=== PATIENT | female | born 1990 | race Caucasian/White ===

== ENCOUNTER 2020-07-21 16:44 | Emergency (ER) | payer OTHER, SELFPAY ==
--- NOTE | 2020-07-21 16:52 | ECG_ITS ---
Measurements Intervals [place] Rate: 123 P: 77 [place]: 141 QRS: 77 QRSD: 90 T: 59 QT: 302 QTc: 432 Interpretive Statements SINUS TACHYCARDIA MINIMAL Q WAVES- INFERIOR LEADS ABNORMAL ECG Electronically Signed On 07-21-2020 21:23:10 CDT by Matt Plaza D.O.
[2020-07-21 17:05] VITALS: BP 129/79; PULSE 122; RESP 22; O2SAT 99
--- NOTE | 2020-07-21 17:15 | ED.ARRPALP ---
HPI - Arrhythmia/Palpitations General Chief Complaint: Arrhythmia/Palpitations Stated Complaint: heart beating fast, dizzy Source: patient Mode of arrival: ambulatory Limitations: no limitations History of Present Illness HPI narrative: Is a 29-year-old female who presents with some increased heart rate started earlier today while at work, denies any other symptoms, no shortness of breath no chest pain no diaphoresis no nausea vomiting. The patient did she say she had some dysuria with no fever or chills currently not on any medication denies any drug use or alcohol abuse. MD complaint: rapid heart beat Onset (ago): hour(s) Duration: constant Severity: mild Context: occurred during rest Associated symptoms: denies other symptoms Related Data Home Medications Medication Instructions Recorded Confirmed No Home Medications 07/21/20 07/21/20 Allergies Allergy/AdvReac Type Severity Reaction Status Date / Time No Known Allergies Allergy Verified 07/21/20 16:58 Review of Systems Review of Systems: All systems reviewed & are unremarkable except as noted in HPI and below PMFSH Past Medical History Medical History Exam Const: General: no acute distress and alert Orientation/consciousness: patient oriented x3 HENMT: Head: normal to inspection Eyes: Conjunctivae: conjunctivae normal Pupils: Equal, round and reactive pupils present EOM: EOMs intact bilaterally Neck: Neck: normal visual inspection, no lymphadenopathy and no meningeal signs Chest: Chest palpation & inspection: normal inspection of the chest Resp: Effort & Inspection: normal respiratory effort Auscultation: clear to auscultation bilaterally Cardio: Rate: regular rate and tachycardic GI: Auscultation: normal bowel sounds : General: Yes no CVA tenderness Back/Spine/Pelvis: Back: no CVA tenderness Skin: General skin exam: normal color Rashes: no rashes Neuro: General: patient oriented x3 and moves all extremities Extrem: General: normal to inspection and no pedal edema Psych: Affect: Anxious affect present Course Course Emergency Course: went into assessed patient and explained what was going to be done, I explained that we were in a start IV fluids and this obtain urinalysis, and blood work. Patient last seen walking out the door, walking to her car and left the premises without further evaluation. MDM - Arrhythmia/Palpitations ECG Data EKG #1: ECG completion date: 07/21/20 ECG completion time: 17:18 EKG Interpretation: tachycardia Critical Care Time Critical Care Time Critical Care Time: No Discharge Plan Discharge Clinical Impression: Sinus tachycardia Patient Disposition: Elopement After Seen by Prov Condition: Stable Prescriptions: No Action No Home Medications RF: 0 Follow-up/Referrals: UNKNOWN,DOCTOR [Primary Care Provider] - Time of Disposition: 17:18
== END 2020-07-21 17:15 | disposition left against medical advice (07) ==
PROVIDERS: Emergency Provider Emergency Medicine
DX: R00.0 Tachycardia, unspecified (principal)
CPT/HCPCS: 93005; 99283

== ENCOUNTER 2020-12-19 23:49 | Emergency (ER) | payer OTHER, SELFPAY ==
[2020-12-20] VITALS: BP 111/60; PULSE 85; RESP 20; TEMP 36.8; O2SAT 97
--- NOTE | 2020-12-20 00:05 | PC.NURSE ---
Pt. being monitored, FHT noted WNL and strong. Pt. being transferred to [facility] and hi risk OB contacted for transport. Noted contractions are approx. anywhere from 1 min to 4 min apart and lasting 30 sec. VSS.
--- NOTE | 2020-12-20 00:10 | PC.NURSE ---
HIV refusal consent obtained via verbal consent. Pt. in active labor c contractions coming more frequently. 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
--- NOTE | 2020-12-20 00:17 | PC.NURSE ---
Report to Lily Obando at [facility].
[2020-12-20] MEDS: LACTATED RINGERS 1,000 ML 999 ML IV CONT ×2 (00:25→01:29)
--- NOTE | 2020-12-20 00:37 | ED.PREGNANCY ---
HPI - General Chief complaint: OB/Uterine Contractions Stated complaint: labor Source: EMS Mode of arrival: EMS Limitations: no limitations History of Present Illness HPI Narrative: this is a 30-year-old female presents to the emergency department via EMS she is 38 weeks and was having contractions throughout the day and over the last 2 to 3 hours or contractions intensified and were becoming closer together and having intense contractions every 1 to 2 minutes. This is her 4th and she is considered high risk secondary to drug abuse and prior history of placenta abruptio. Currently vital signs are stable the patient has no nausea vomiting, dilated approximately 1 to 3 cm with, water did not break although she has some mucus discharge. heart tones assessed and are between 124 and 134, the pain the patient's vital signs are stable her blood pressure is 110/66 with heart rate of 70 and O2 saturations 100%. MD Complaint: contractions Onset (ago): hour(s) Pain Consistency: intermittent Location: pelvis Severity: severe Associated symptoms: denies other symptoms Related Data Home Medications Medication Instructions Recorded Confirmed No Home Medications 07/21/20 07/21/20 Allergies Allergy/AdvReac Type Severity Reaction Status Date / Time No Known Allergies Allergy Verified 07/21/20 16:58 Review of Systems Review of Systems: All systems reviewed & are unremarkable except as noted in HPI and below PMFSH Past Medical History Medical History (Updated 12/20/20 @ 00:43 by Remberto Puente MD) Exam Const: General: no acute distress Orientation/consciousness: patient oriented x3 HENMT: Head: normal to inspection Eyes: Conjunctivae: conjunctivae normal Pupils: Equal, round and reactive pupils present Neck: Neck: normal visual inspection and no lymphadenopathy Chest: Chest palpation & inspection: normal inspection of the chest Resp: Effort & Inspection: normal respiratory effort Auscultation: clear to auscultation bilaterally Cardio: Rate: regular rate Rhythm: regular rhythm GI: Auscultation: normal bowel sounds : General: Yes no CVA tenderness Other: Pelvic exam performed head is at approximately +2 above the the pelvis, with some diet cervix dilated around 2cm with no cephalic presentation, and there is a mucous discharge but the water did not break if this point. Back/Spine/Pelvis: Back: CVA tenderness Skin: General skin exam: normal color Rashes: no rashes Course Course Emergency Course: Patient being assessed and contractions occurring about every 1 to 2 minutes lasting about 30 to 45 seconds. Patient was started on IV and is given lactated Ringer's, talked to high speed operator team at [facility] with Dr. Mancia and at this point they will be sending a EMS to transport to [facility]. EMS transport arrived, cervix fully dilated and transport team to go to [facility] in [place]. Vital Signs Vital signs: Vital Signs Temperature 36.8 C 12/20/20 00:00 Pulse Rate 85 12/20/20 00:00 Respiratory Rate 20 12/20/20 00:00 Blood Pressure 111/60 12/20/20 00:00 Pulse Oximetry 97 12/20/20 00:00 Temperature 36.8 C 12/20/20 00:00 Pulse Rate 85 12/20/20 00:00 Respiratory Rate 20 12/20/20 00:00 Blood Pressure 111/60 12/20/20 00:00 Pulse Oximetry 97 12/20/20 00:00 Critical Care Time Critical Care Time Critical Care Time: No Discharge Plan Discharge Clinical Impression: Qualifiers: Weeks of gestation: 38 weeks Qualified Code(s): Z3A.38 - 38 weeks gestation of Patient Disposition: Acute Care Hospital Condition: Stable Prescriptions: No Action No Home Medications RF: 0 Follow-up/Referrals: UNKNOWN,DOCTOR [Primary Care Provider] - Time of Disposition: 02:00
[2020-12-20 00:41] VITALS: BP 134/67; PULSE 88; RESP 20; O2SAT 98
[2020-12-20 01:10] VITALS: BP 118/50; PULSE 82; RESP 20; O2SAT 98
--- NOTE | 2020-12-20 01:52 | PC.NURSE ---
Transport team here. Pt. being evaluated and setup for transfer FHT's noted and WNL..
--- NOTE | 2020-12-20 02:00 | PC.NURSE ---
Transport team wanting to go to nearest OB Dept., call placed to [facility] OB Dept. and report given. Pt. loaded per Transport team and going to [facility].
== END 2020-12-20 02:00 | disposition short-term general hospital (02) ==
PROVIDERS: Emergency Provider Emergency Medicine
DX: O60.03 Preterm labor without delivery, third trimester (principal); O09.893 Supervision of other high risk pregnancies, third trimester; Z3A.38 38 weeks gestation of pregnancy
CPT/HCPCS: 96360; 96361; 99285; J7120

== ENCOUNTER 2020-12-24 20:34 | Emergency (ER) | payer OTHER, SELFPAY ==
--- NOTE | 2020-12-24 20:47 | ED.FEMALEGU ---
HPI - Female Genitourinary General Chief complaint: Urogenital-Female Stated complaint: Clogged cath Time Seen by Provider: 12/24/20 20:47 Source: patient and RN notes reviewed Mode of arrival: wheelchair Limitations: no limitations History of Present Illness HPI Narrative: patient had recent and lacerated bladder during . She was just sent home and thinks her catheter is obstructed. MD elicited complaint: other ( problem with Serrato catheter) Onset (ago): hour(s) (2-3) Severity: moderate Female Urogenital Radiation: Non-Radiating Quality of pain: cramping Consistency: constant Vaginal discharge: none Vaginal bleeding: none Exacerbating factors: none Relieving factors: none Associated symptoms: denies other symptoms Treatment prior to arrival: none Patient : No Related Data Home Medications Medication Instructions Recorded Confirmed No Home Medications 07/21/20 07/21/20 Allergies Allergy/AdvReac Type Severity Reaction Status Date / Time No Known Allergies Allergy Verified 12/24/20 21:03 Review of Systems Review of Systems: All systems reviewed & are unremarkable except as noted in HPI and below PMFSH Past Medical History Medical History (Updated 12/24/20 @ 21:21 by Chriss Smith MD) No active medical problems Surgical History Surgical History (Updated 12/24/20 @ 21:10 by Chriss Smith MD) H/O section Social History Social History (Updated 12/24/20 @ 21:11 by Chriss Smith MD) Smoking status: Current every day smoker Tobacco type: cigarettes Alcohol intake: current Substance use: current Substance use type: opiates Exam Const: General: healthy appearing, no acute distress and alert Nutritional Appearance: well nourished Orientation/consciousness: patient oriented x3 HENMT: Head: normal to inspection Ears: external ears normal Eyes: Conjunctivae: conjunctivae normal Pupils: Equal, round and reactive pupils present EOM: EOMs intact bilaterally Neck: Neck: normal visual inspection Resp: Effort & Inspection: normal respiratory effort Auscultation: clear to auscultation bilaterally Cardio: Rate: regular rate Rhythm: regular rhythm GI: GI Palp: Yes Soft to palpation, Yes Tenderness to palpation present (GI) (post delivery), No Guarding due to palpation present (GI) and No Rebound tenderness present Auscultation: normal bowel sounds Urinary Catheter: Urinary Catheter: other (Obstructed mucous) Back/Spine/Pelvis: Cervical Spine: cervical ROM normal Thoracic/Lumbar Spine: thoraco-lumbar ROM normal Skin: General skin exam: normal color Rashes: no rashes Neuro: General: patient oriented x3, moves all extremities and no meningeal signs Speech: normal speech Gait exam (Neuro): Normal gait present Extrem: General: normal to inspection and no clubbing, cyanosis or edema Psych: Mental Status: mental status grossly normal Affect: normal affect Attitude: cooperative Thought content: Yes Normal thought content present Judgement: Good judgement present (Psych) Course Course Emergency Course: Serrato catheter initially was attempted to flush. Nurse was unable to flush so the Serrato was exchanged without complication. There was significant amount of mucus but it is draining freely now. Discharge Plan Discharge Clinical Impression: Complication of Serrato catheter Patient Disposition: Home, Self-Care Condition: Stable Instructions: Serrato Catheter Placement and Care (ED) Additional Instructions: Call your OB in a.m. if possible to let them know the problem had with the Serrato catheter. See if they have any other instructions. Prescriptions: No Action No Home Medications RF: 0 Follow-up/Referrals: UNKNOWN,DOCTOR [Primary Care Provider] - Time of Disposition: 21:21
[2020-12-24 20:57] VITALS: BP 124/80; PULSE 74; RESP 20; TEMP 36.6; O2SAT 100
--- NOTE | 2020-12-24 21:04 | PC.NURSE ---
Verbal order from Dr Smith to pull indwelling argueta catheter that pt arrived to the ED with and replace with a new one.
[2020-12-24 21:38] VITALS: BP 128/74; PULSE 80; RESP 18; O2SAT 99
== END 2020-12-24 21:53 | disposition home or self-care (01) ==
PROVIDERS: Emergency Provider Emergency Medicine
DX: T83.098A Other mechanical complication of other urinary catheter, initial encounter (principal)
CPT/HCPCS: 99282; 99283

== ENCOUNTER 2020-12-25 16:05 | Emergency (ER) | payer OTHER, SELFPAY ==
[2020-12-25 16:46] VITALS: BP 126/69; PULSE 89; RESP 16; TEMP 36.9; O2SAT 98
--- NOTE | 2020-12-25 16:53 | ED.GENADULT ---
HPI - General Adult General Chief complaint: Extremity Problem,Nontraumatic Stated complaint: Body swollen Source: patient and family Mode of arrival: wheelchair Limitations: no limitations History of Present Illness HPI narrative: this is a 30-year-old female presents to the emergency department with some edema mainly in her lower extremities, with no shortness of breath no chest pain no fever chills no abdominal pain. The patient recently had a for a breech delivery at [facility] approximately 5 days ago. During the there was a laceration of the urinary bladder and the patient was subsequently transferred to [facility] in [place] for bladder surgery and repair. Patient currently is doing well subsequent to that, she does have an indwelling Serrato that is patent, was here yesterday for a clogged Serrato that was replaced yesterday during a visit in the emergency department. Currently the patient is comfortable doing well and has concerns about lower extremity edema. Onset (ago): day(s) Location: lower extremity Related Data Home Medications Medication Instructions Recorded Confirmed No Home Medications 07/21/20 12/24/20 Allergies Allergy/AdvReac Type Severity Reaction Status Date / Time No Known Allergies Allergy Verified 12/24/20 21:03 Review of Systems Review of Systems: All systems reviewed & are unremarkable except as noted in HPI and below PMFSH Past Medical History Medical History No active medical problems Surgical History Surgical History H/O section Social History Social History Smoking status: Current every day smoker Tobacco type: cigarettes Alcohol intake: current Substance use: current Substance use type: opiates Exam Const: General: no acute distress Orientation/consciousness: patient oriented x3 HENMT: Head: normal to inspection Eyes: Conjunctivae: conjunctivae normal Pupils: Equal, round and reactive pupils present EOM: EOMs intact bilaterally Direct Ophthalmoscopy: no photophobia Neck: Neck: normal visual inspection, no lymphadenopathy and no meningeal signs Chest: Chest palpation & inspection: normal inspection of the chest Resp: Effort & Inspection: normal respiratory effort Auscultation: clear to auscultation bilaterally Cardio: Rate: regular rate Rhythm: regular rhythm GI: GI Palp: Yes Soft to palpation Other: Surgical site from delivery as tender but there is no redness or drainage. : General: Yes no CVA tenderness Other: Serrato currently in place is patent and draining well Back/Spine/Pelvis: Back: no CVA tenderness Skin: General skin exam: normal color Rashes: no rashes Neuro: General: patient oriented x3 and moves all extremities Extrem: General: normal to inspection and edema ( trace edema noted in her lower extremities ) Psych: Mental Status: mental status grossly normal Course Course Emergency Course: evaluation of patient reassured patient that after receiving numerous IV fluids during her hospital stay there was going to be some edema, currently there is no shortness of breath and advised the patient to reduce her salt intake and to elevate her lower legs while she is really climbing and resting. And keep her follow-up with her OB. Critical Care Time Critical Care Time Critical Care Time: No Discharge Plan Discharge Clinical Impression: Lower extremity edema Patient Disposition: Home, Self-Care Condition: Stable Instructions: Antibiotic Form, Leg Edema (ED) Additional Instructions: keep legs elevated while at rest and reduce salt intake, and follow-up with to OB/ fish dressing machine feeder as soon as possible for further evaluation and treatment Prescriptions: No Action No Home Medicati
== END 2020-12-25 17:08 | disposition home or self-care (01) ==
PROVIDERS: Emergency Provider Emergency Medicine
DX: R60.0 Localized edema (principal)
CPT/HCPCS: 99281; 99282

== ENCOUNTER 2021-11-09 17:30 | Emergency (ER) | payer OTHER, SELFPAY ==
[2021-11-09 17:38] VITALS: BP 121/66; PULSE 104; RESP 16; TEMP 36.4; O2SAT 96
--- NOTE | 2021-11-09 17:47 | ED.DENTAL ---
HPI - Dental/Oral General Chief complaint: Dental/Oral Stated complaint: swelling in face Source: patient Mode of arrival: ambulatory Limitations: no limitations History of Present Illness HPI Narrative: this is a 30-year-old female presents with some cracked tooth premolar on the left lower jaw with surrounding gum inflammation and left lower jaw swelling with no tender glands no fever chills no shortness of breath. Complaint: tooth pain Teeth map: 1. cracked premolar with surrounding gum inflammation and jaw inflammation Onset (ago): day(s) Duration: constant Severity: moderate Severity scale (1-10): 6 Relieving factors: nothing Exacerbating factors: chewing and cold Related Data Allergies Allergy/AdvReac Type Severity Reaction Status Date / Time No Known Allergies Allergy Verified 11/09/21 17:44 Review of Systems Review of Systems: All systems reviewed & are unremarkable except as noted in HPI and below PMFSH Past Medical History Medical History No active medical problems Surgical History Surgical History H/O section Social History Social History Smoking status: Current every day smoker Tobacco type: cigarettes Alcohol intake: current Substance use: current Substance use type: opiates Exam Const: General: no acute distress and alert Orientation/consciousness: patient oriented x3 HENMT: Head: normal to inspection Eyes: Conjunctivae: conjunctivae normal Pupils: Equal, round and reactive pupils present Neck: Neck: normal visual inspection, no lymphadenopathy and no meningeal signs Chest: Chest palpation & inspection: normal inspection of the chest Resp: Effort & Inspection: normal respiratory effort Auscultation: clear to auscultation bilaterally Cardio: Rate: regular rate Rhythm: regular rhythm GI: Auscultation: normal bowel sounds : General: Yes no CVA tenderness Back/Spine/Pelvis: Back: no CVA tenderness Skin: General skin exam: normal color Rashes: no rashes Neuro: General: patient oriented x3 and moves all extremities Extrem: General: normal to inspection and no pedal edema Psych: Mental Status: mental status grossly normal Course Course Emergency Course: Patient received IM Toradol 60mg and currently not having any fevers did try some ibuprofen at home, advised to follow-up with her dentist and will send antibiotics to her pharmacy. Critical Care Time Critical Care Time Critical Care Time: No Discharge Plan Discharge Clinical Impression: Toothache, Dental abscess Patient Disposition: Home, Self-Care Condition: Stable Instructions: Antibiotic Form, Dental Abscess (ED), Toothache (ED) Additional Instructions: Take medicine as prescribe and follow-up with dentist. Prescriptions: New amoxicillin 500 mg capsule 500 mg PO TID Qty: 30 RF: 0 tramadol [Ultram] 50 mg tablet 50 mg PO Q6H PRN (Reason: pain) Qty: 14 RF: 0 Follow-up/Referrals: UNKNOWN,DOCTOR [Primary Care Provider] - Stand Alone Forms: Work/School Release IP Time of Disposition: 17:51
[2021-11-09] MEDS: KETOROLAC (*BKC) 60 MG/2 ML VIAL IM (17:58)
[2021-11-09 18:05] VITALS: BP 122/70; PULSE 86; RESP 16; TEMP 36.4; O2SAT 96
== END 2021-11-09 18:15 | disposition home or self-care (01) ==
PROVIDERS: Emergency Provider Emergency Medicine
DX: K08.89 Other specified disorders of teeth and supporting structures (principal); K04.7 Periapical abscess without sinus
CPT/HCPCS: 96372; 99283; J1885

== ENCOUNTER 2022-09-04 01:01 | Emergency (ER) | payer OTHER, SELFPAY ==
--- NOTE | ~2022-09-04 | CT_ITS ---
EXAMINATION: CT facial & cervical spine wo DATE: 09/04/2022 02:43 INDICATION: Head injury. TECHNIQUE: Computed tomography (CT) of the maxillofacial region and cervical spine was performed with out intravenous contrast. Automated exposure control and iterative reconstruction technique were empl oyed. The dose-length product was 357.91 mGy-cm. COMPARISON: None FINDINGS: MAXILLOFACIAL CT: There is rightward deviation of the nasal septum. No fracture. There is mucosal thickening in the par anasal sinuses, worst in left maxillary sinus. There are multiple broken teeth with periapical lucenc ies. There are carious lesions of multiple teeth. There is left periorbital soft tissue swelling. The orbits are normal. CERVICAL SPINE CT: There is 5 degrees dextrocurvature of cervical spine. There is kyphosis of cervical spine. Vertebral body heights are normal. There is mildly decreased disc height at C4-C5, C5-C6, and C6-C7. The follow ing disc levels are specifically discussed: C2-C3: There is mild right uncovertebral joint osteoarthritis. There is no facet joint osteoarthritis . There is no neural foraminal stenosis. There is no central canal stenosis. C3-C4: There is mild right uncovertebral joint osteoarthritis. There is no facet joint osteoarthritis . There is mild right neural foraminal stenosis. There is no central canal stenosis. C4-C5: There is mild bilateral uncovertebral joint osteoarthritis. There is no facet joint osteoarthr itis. There is mild right neural foraminal stenosis. There is mild central canal stenosis. C5-C6: There is no uncovertebral joint osteoarthritis. There is no facet joint osteoarthritis. There is no neural foraminal stenosis. There is mild central canal stenosis. C6-C7: There is no uncovertebral joint osteoarthritis. There is mild right facet joint osteoarthritis . There is no neural foraminal stenosis. There is no central canal stenosis. C7-T1: There is no uncovertebral joint osteoarthritis. There is moderate bilateral facet joint osteoa rthritis. There is no neural foraminal stenosis. There is no central canal stenosis. IMPRESSION: 1. No fracture. 2. Extensive dental disease. 3. Mild cervical spondylosis. Reviewed, dictated and finalized at location A.
--- NOTE | ~2022-09-04 | XR_ITS ---
EXAMINATION: XR pelvis 1-2V DATE: 09/04/2022 02:45 INDICATION: Pelvis injury. TECHNIQUE: An anteroposterior view of the pelvis was obtained. COMPARISON: None. FINDINGS: Bone alignment is normal. No fracture. The hip joint spaces are normal. IMPRESSION: 1. No fracture. Reviewed, dictated and finalized at location A. IMPRESSION: 1. No fracture.
--- NOTE | ~2022-09-04 | CT_ITS ---
EXAMINATION: CT brain wo con DATE: 09/04/2022 02:42 INDICATION: Head injury. TECHNIQUE: Computed tomography (CT) of the head was performed without intravenous contrast. The mA wa s adjusted according to patient size. Iterative reconstruction technique was employed. The dose-lengt h product was 605.33 mGy-cm. COMPARISON: None FINDINGS: There is no intracranial hemorrhage, acute infarction, or abnormal intracranial mass lesion . The ventricles are normal in size. The orbits are normal. There is mucosal thickening in left maxil cindy sinus. There is a small left mastoid effusion. IMPRESSION: 1. Normal brain. Reviewed, dictated and finalized at location A. IMPRESSION: 1. Normal brain.
--- NOTE | ~2022-09-04 | XR_ITS ---
EXAMINATION: XR elbow LT min 3V DATE: 09/04/2022 02:44 INDICATION: Left elbow injury and pain. TECHNIQUE: 4 views of left elbow were obtained. COMPARISON: None. FINDINGS: Bone alignment is normal. No fracture. Joint spaces are normal. No elbow joint effusion. IMPRESSION: 1. No fracture. Reviewed, dictated and finalized at location A. IMPRESSION: 1. No fracture.
--- NOTE | ~2022-09-04 | XR_ITS ---
EXAMINATION: XR forearm LT 2V DATE: 09/04/2022 02:44 INDICATION: Left forearm injury. TECHNIQUE: 2 views of left forearm were obtained. COMPARISON: None. FINDINGS: Bone alignment is normal. No fracture. Joint spaces are normal. No elbow joint effusion. IMPRESSION: 1. No fracture. Reviewed, dictated and finalized at location A. IMPRESSION: 1. No fracture.
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
[2022-09-04 01:24] VITALS: BP 131/79; PULSE 86; RESP 17; TEMP 36.2; O2SAT 95
[2022-09-04 01:40] LABS: Basophils Absolute Auto 0.03 K/mm3 (0.00-0.10); Basophils Percent Auto 0.3 % (0.0-1.0); Eosinophils Absolute Auto 0.24 K/mm3 (0.02-0.50); Eosinophils Percent Auto 2.4 % (1.0-6.0); Hematocrit 39.5 % (35.0-49.0); Hemoglobin 13.2 g/dL (12.0-15.0); Immature Granulocyte Absolute 0.04 K/mm3 (0.00-0.00); Immature Granulocyte Percent A 0.4 % (0.0-0.0); Lymphocytes Percent Auto 23.1 % (18.0-42.0); Mean Corpuscular HGB Conc 33.4 g/dL (32.0-36.0); Mean Corpuscular Hemoglobin 30.6 pg (27.0-31.0); Mean Corpuscular Volume 91.4 fL (78.0-102.0); Monocytes Absolute Auto 0.66 K/mm3 (0.10-0.90); Monocytes Percent Auto 6.6 % (2.0-11.0); Neutrophils Absolute Auto 6.7 K/mm3 (1.7-7.2); Neutrophils Percent Auto 67.2 % (50.0-70.0); Platelet Count Result 321 K/mm3 (150-420); Red Blood Count 4.32 M/mm3 (4.20-5.40); Red Cell Distribution Width 12.3 % (11.6-14.4)
[2022-09-04 01:41] LABS: Appearance Urine Clear (Clear); Bilirubin Urine Negative (Negative); Blood Urine 2+ (Negative); Glucose Urine UA Negative (Negative); Ketones Urine Negative (Negative); Leukocyte Esterase Ur Negative (Negative); Nitrate Urine Positive (Negative); Protein Urine Negative (Negative); Urobilinogen Urine 0.2 mg/dL (0.2-1.0)
[2022-09-04 01:43] LABS: Pregnancy On Board Control Positive; Urine Pregnancy Test Negative
[2022-09-04 01:47] LABS: Add Urine Microscopic? YES; Bacteria Urine 4+ /hpf; Color Urine Light Yellow (Yellow); Squamous Epithelial Cell Urine Moderate /hpf (Few); WBC Urine 0-3 /hpf (0-3)
[2022-09-04] MEDS: HYDROmorphone HCL INJ (*CRX) 2 MG/ML VIAL 0.5 MG IM (01:47)
[2022-09-04] MEDS: ONDANSETRON HCL ODT 4 MG TABLET PO (01:48)
[2022-09-04 01:56] LABS: Alanine Aminotransferase 25 U/L (14-59); Albumin Level 3.5 g/dL (3.4-5.0); Alkaline Phosphatase 81 U/L (46-116); Anion Gap 7 mmol/L (8-16); Aspartate Amino Transferase 27 U/L (15-37); Bilirubin,Total 0.3 mg/dL (0.00-1.00); Blood Urea Nitrogen 9 mg/dL (7-18); Calcium 8.6 mg/dL (8.5-10.1); Carbon Dioxide 29 mmol/L (21-32); Chloride 104 mmol/L (98-108); Estimated CRCL calculation 83 ml/min; Estimated Glomerular Filt Rate > 60; Glucose 93 mg/dL (70-99); Lipase 73 U/L (73-393); Osmolality Calculated 288 mOsm/kg (285-295); Potassium 4.2 mmol/L (3.5-5.1); Sodium 140 mmol/L (136-145); Troponin I 30.9 ng/L (0.00-60.4)
--- NOTE | 2022-09-04 02:37 | PC.NURSE ---
Radiology informed this staff member that the patient refused the ordered chest X-ray.pt informed this staff member that she did not feel like she needed a chest x-ray given that she does not have any pain in her chest.
[2022-09-04 02:40] VITALS: BP 123/70; PULSE 77; RESP 16; O2SAT 95
[2022-09-04] MEDS: LIDOCAINE HCL 1% LOCAL INJ 10 ML VIAL (04:00)
[2022-09-04 04:28] VITALS: BP 129/82; PULSE 77; RESP 16; TEMP 36.2; O2SAT 99
== END 2022-09-04 04:29 | disposition home or self-care (01) ==
PROVIDERS: Emergency Provider Internal Medicine Critical Care Medicine
DX: S01.112A Laceration without foreign body of left eyelid and periocular area, initial encounter (principal); S60.512A Abrasion of left hand, initial encounter; S80.812A Abrasion, left lower leg, initial encounter; W05.1XXA Fall from non-moving nonmotorized scooter, initial encounter; F17.210 Nicotine dependence, cigarettes, uncomplicated
CPT/HCPCS: 12011; 36415; 70450; 70486; 72125; 72170; 73080; 73090; 80053; 81001; 81025; 83690; 84484; 85025; 96372; 99284; A9270; J1170

== ENCOUNTER 2024-06-17 18:36 | Emergency (ER) | payer SELFPAY ==
--- NOTE | ~2024-06-17 | XR_ITS ---
EXAM: XR ankle LT min 3V, XR foot LT min 3V DATE: 06/17/2024 19:17 HISTORY: accidental fall . COMPARISON: None available. FINDINGS: Normal mineralization. No fracture or dislocation. No lytic or blastic lesion. Joint space s are maintained. Minimal Achilles enthesopathy. No erosion or periosteal change. Soft tissues within normal limits. IMPRESSION: No acute osseous finding the left ankle or foot. Reviewed, dictated and finalized at location K. IMPRESSION: No acute osseous finding the left ankle or foot.
[2024-06-17 18:37] VITALS: BP 144/81; PULSE 96; RESP 20; TEMP 37; O2SAT 98
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
[2024-06-17] MEDS: KETOROLAC 30 MG/ML VIAL (*BKC) IM (19:14)
[2024-06-17 19:56] VITALS: BP 132/78; PULSE 78; RESP 20; TEMP 36.9; O2SAT 98
== END 2024-06-17 19:56 | disposition home or self-care (01) ==
PROVIDERS: Emergency Provider Internal Medicine Critical Care Medicine
DX: S93.602A Unspecified sprain of left foot, initial encounter (principal); K02.9 Dental caries, unspecified; F17.210 Nicotine dependence, cigarettes, uncomplicated; V18.0XXA Pedal cycle driver injured in noncollision transport accident in nontraffic accident, initial encounter
CPT/HCPCS: 73610; 73630; 96372; 99283; J1885

== ENCOUNTER 2025-03-14 09:20 | Emergency (ER) | payer OTHER, SELFPAY ==
[2025-03-14] VITALS (25 sets, daily range): BP systolic 125–180; BP diastolic 71–96; PULSE 96–146; RESP 10–22; TEMP 36.7–36.8; O2SAT 92–100
--- NOTE | ~2025-03-14 | CT_ITS ---
EXAMINATION: CTA chest PE protocol DATE: 03/14/2025 11:34 CDT INDICATION: Left-sided chest pain TECHNIQUE: Computed tomographic angiography (CTA) of the chest was performed with 100 mL Omnipaque-35 0 intravenous contrast. The dose-length product was 224.24 mGy-cm. Maximum intensity projection 3D-re constructions of the aorta and other arteries were constructed by the technologist on a separate work station. COMPARISON: None. FINDINGS: Study is technically limited due to bolus contrast timing. No large central pulmonary embol ism. Heart size normal. No significant pleural or pericardial effusion. No thoracic lymphadenopathy. No endobronchial lesions. No pneumothorax. No focal airspace consolidation. No pneumothorax. No acute osseous abnormality. Mild thoracic spondylosis. IMPRESSION: 1. No acute cardiopulmonary disease. Evaluation for pulmonary embolism limited due to bolus contrast timing. No large central pulmonary embolism. Reviewed, dictated and finalized at location A.
--- NOTE | ~2025-03-14 | XR_ITS ---
EXAMINATION: XR chest 1V portable 03/14/2025 09:41 INDICATION: Left-sided chest pain PROCEDURE: AP portable chest COMPARISON: No prior studies for comparison. FINDINGS: The lungs are clear. The cardiomediastinal silhouette is within normal limits. There are no pleural effusions. There is no pneumothorax suspected. IMPRESSION: 1: NO ACUTE CARDIOPULMONARY DISEASE. Reviewed, dictated and finalized at location A.
--- NOTE | 2025-03-14 09:22 | ECG_ITS ---
Test Date: 2025-03-14 09:27:38 Measurements Intervals [place] Rate: 139 P: 79 MS: 144 QRS: 73 QRSD: 88 T: 73 QT: 316 QTc: 482 Interpretive Statements SINUS TACHYCARDIA MINIMAL Q WAVES- INFERIOR LEADS ABNORMAL ECG No previous ECG available for comparison Electronically Signed On 03-14-2025 11:50:34 CDT by Matt Plaza D.O.
--- OUTSIDE RECORDS SUMMARY | 2025-03-14 09:22 | XMS_ITS | Clinical Summary ---
Author Organization [facility] Address [address] [place] [id number] Care Team Providers Care [employer] Clerk Name Role Phone None, Provider MD Primary Care Provider Unavaila ble Allergies No known active allergies Medications albuterol sulfate HFA 108 (90 Base) MCG/ACT inhaler Inhale 2 puffs into the lungs every 6 (six) hours as needed for Wheezing. Active HYDROmorphone 2 MG tabletIndications :Chronic Pain,acute post op pain - not prescribed for chronic pain Take 1 tablet (2 mg total) by mouth every 4 (four) hours as needed. Indications: Chronic Pain, acute post op pain - not prescribed for chronic pain 10 tablet 1 Active naloxone 4 MG/0.1ML nasal sprayIndications: Other postoperative complication involving genitourinary system 1 spray by Nasal route as needed for Opioid reversal. 1 each 1 Active senna-docusate 8.6-50 MG tabletIndications :Other postoperative complication involving genitourinary system Take 1 tablet by mouth 2 (two) times daily. 60 tablet 1 Active Active Problems Problem Noted Date Diagnosed Date Breech presentation ([facility]) 12/20/2020 delivery delivered ([facility]) 12/20/2020 Post-operative complication 12/20/2020 Family History Relation Status Comments Father Social History Tobacco Use Types Packs/Day Years Used Date Smoking Tobacco: Every Day Cigarettes Smokeless Tobacco: Never Tobacco Cessation:Ready to Q uit: No; Counseling Given: Yes Alcohol Use Standard Drinks/Week Comments Not Currently 0 (1 standard drink = 0.6 oz pur e alcohol) Depression Answer Date Recor ded Last EPDS Total Score 2 12/24/2020 Last EPDS Self Harm Result Sometimes 12/24 Comments No Sex and Gender Information Value Date Recorded Sex Assigned at Not on file Legal Sex Female 2:15 AM [facility] Gender Identity Not on file Sexual Orientation Not on file Last Filed Vital Signs Vital Sign Reading Time Taken Comments Blood Pressure 138/67 12/24/2020 12:26 PM [facility] Pulse 92 12/24/2020 12:26 PM [facility] Temperature 36.2 C (97.2 F) 12/24/2020 8:28 AM [facility] Respiratory Rate 16 12/24/2020 6:10 AM [facility] Oxygen Saturation 93% 12/22/2020 9:17 AM [facility] Inhaled Oxygen Concentration - - Weight 54.4 kg (120 lb) 12/20/2020 12:00 PM [facility] Height 160 cm (5' 3 ) 12/20/2020 12:00 PM [facility] Body Mass Index 21.26 12/20/2020 12:00 PM [facility] Plan of Treatment Health Maintenance Due Date Last Done Comments Annual Physical 1991 Pneumococcal Vaccine: Pediatrics (0 to 5 Years) and At-Risk Patients (6 to 49 Years) (1 of 2 - PCV) 2007 Cervical Cancer Screening Pap Smear (Age 30 to 64) Every 3 Years 11/24/2023 11/24/2020, 11/24/2020 COVID-19 Vaccine ( season) 2024 Cervical Cancer Screening Pap with HPV Testing (Age 30 to 64) Every 5 Years 11/24/2025 11/24/2020, 11/24/2020 Cervical Cancer Screening with HPV 11/24/2025 DTaP, Tdap and Td Vaccines (8 - Td or Tdap) 11/24/2030 11/24/2020, 08/17/2019, 07/05/1994, Additional history exists Hepatitis B Vaccines Completed 10/01/2019, 06/10/2019, 02/19/2019 Hepatitis C Completed 12/20/2020, 11/26, 11/24/2020, Additional history exists HPV Vaccines Aged Out No longer eligi ble based on patient's age to complete this topic Meningococcal B Vaccine Aged Out No l onger eligible based on patient's age to complete this topic Meningococcal Vaccine Aged Out No yady rosa eligible based on patient's age to complete this topic RSV Immunizations Under 20 Months Aged Out No longer eligible based on patient's age to complete this topic Procedures Procedure Name Priority Date/Time Associated Diagnosis Comments HEPATITIS C ANTIBODY Routine 12/20/2020 9:11 AM [facility] C[facility] from Last 3 Months or Most Recently Relevant to Health Maintenance Results * HEPATITIS C ANTIBODY (12/20/2020 9:11 AM [facility] C[facility]) HEPATITIS C AB NON-REACTI VE NON-REACT BEATRICE 12/20/2020 6:38 PM [facility] Comment: ANTIBODIES TO HCV NOT DETECTED. DOES NOT EXCLUDE THE POSSIBILITY OF EXPOSURE TO HCV. 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
--- OUTSIDE RECORDS SUMMARY | 2025-03-14 09:22 | XMS_ITS | Clinical Summary ---
Author Organization [facility] Address [address] [place] [address] Care Team Providers Care Boxing Inspector Name Role Phone Karina Dill MD Primary Care Provider Source Comments [facility],non-owned Affiliates and Associated Physician Practices is amultiple site organization consisting of ambulatory clinics and hospital sitesin [place], [place], [place] and [place]. This disclosure is being madepursuant to the Care Everywhere program and may not contain all information available regarding this patient. Last updated 18.[facility] [employer] Allergies No known active allergies Medications * This document contains information received from the source organization and may not represent a complete record from that organization. * Be aware that medications may not be up to date on this document. Alwaysverify current medications with the patient. w/o A Vit-Fe Fum-FA (-U) 106.5-1 MG CAPSIndications : Take 1 capsule by mouth once daily Reasons: 30 capsule 3 9 Active albuterol HFA (PROVENTIL;VENT VICENTA;PROAIR) 108 (90 Base) MCG/ACT inhalerIndicati ons:Asthma Inhale 2 puffs by mouth every 4 hours as needed for Shortness of Breath, Wheezing or Cough Reasons: Asthma 1 g 3 9 Active buprenorphine-n aloxone (SUBOXONE) 2-0.5 MG stripIndication s:Opioid [place] 1: 12/02 strip, titrate as directed for 8 days. Reasons: Opioid Dependence 18 strip 1 Active naloxone HCl (NARCAN) 4 MG/0.1ML nasal spray [place] 1 spray into the nose as needed 2 device 1 Active plus iron (NATATAB) 29-1 MG tabletIndicatio ns: Take 1 tablet by mouth once daily May substitute for any vitamin that is covered by her insurance plan. Reasons: 30 tablet 11 1 Active docusate sodium (COLACE) 100 MG capsule Take 1 capsule by mouth 2 times daily as needed for Constipation 60 capsule 5 1 Active Active Problems Problem Noted Date Diagnosed Date Trichomonas vaginitis 11/28/2020 Overview (11/28/2020): Servando called into pharmacy 11/28/20 labor in third trimester without deliver y 11/24/2020 affected by growth restriction 1 Overview (11/24/2020): 11/24/20 ultrasound, EFW 2000g (7%), BPP 8/8, FERNANDO 22.3, breech, fundal placenta, normal UA PI, decreased MCA PI Plan: Repeat ultrasound in 2 weeks for growth, twice weekly NST, weekly BPP/dopplers Assessment & Plan (11/24/2020 3:43 PM SPECIFICATIONS CHECKER): 11/24/20 ultrasound, EFW 2000g (7%), BPP 8/8, FERNANDO 22.3, breech, fundal placenta, normal UA PI, decrease MCA PI Plan: Repeat ultrasound in 2 weeks for growth, twice weekly NST, weekly BPP/dopplers History of 10/01/2019 Rh negative state in antepartum period 9 Assessment & Plan (11/24/2020 3:27 PM SPECIFICATIONS CHECKER): Rhogam given 11/24/20 Abnormal Papanicolaou smear of cervix with positive human papilloma virus (HPV) test 03/02/2019 Overview (03/02/2019): 01/2019: NILM repeat co-testing 1 year Assessment & Plan (11/24/2020 3:26 PM SPECIFICATIONS CHECKER): Repeat performed 11/24/20 History of pre-eclampsia in prior , currently 02/19/2019 Overview (06/11/2019): G1- Hydrochlorothiazide and Lisinopril following delivery Protein/creatinine ration: 0.07, 06/10 Assessment & Plan (11/24/2020 3:17 PM SPECIFICATIONS CHECKER): Baseline labs today. ASA not started given bleeding as well as advanced gestational age making risks likely outweigh benefits. BP normal. Mild intermittent asthma without complication Assessment & Plan (11/24/2020 3:17 PM SPECIFICATIONS CHECKER): Albuterol use 1-2/month only. Anxiety 02/19/2019 Assessment & Plan (11/24/2020 3:18 PM SPECIFICATIONS CHECKER): Not on medications and states does not need currently. Bipolar 1 disorder 02/19/2019 Overview (02/19/2019): Diagnosed in 2010 Assessment & Plan (11/24/2020 3:18 PM SPECIFICATIONS CHECKER): Not on medications and states does not need currently. WISH patient 02/19/2019 Overview (11/29/2020): Datin week ultrasound 06/2020 (under media) PNL: Aneg/Imm/-/- HIV NR Pap: NILM, HPV negative, 10/2020 GC/CT: neg/neg Trich: positive, 11/24 Urine cx: negative UDS: positive amphetamines, fentanyl, THC 11/24/20 H/H/P: 10.9/31.4/328 HgbE: Genetics: Anatomy US: Flu shot: 11/24/20 LFT's: WNL, 10/2020 HCV: negative 11/24/20 TSH: GCT: 93 Tdap: 11/24/20 GBS: BCM: desires BTL, papers signed 11/24/20 Assessment & Plan (11/24/2020 3:20 PM SPECIFICATIONS CHECKER): Routine labs today, GCT, immunizations, ultrasound, NST. History of delivery 02/19/2019 Overview (06/10/2019): G2- Documented LTCS @ [facility]; placental abruption at 34 weeks, records in media Assessment & Plan (11/24/2020 3:21 PM SPECIFICATIONS CHECKER): History of 1 , prefers another if possible. History of placenta abruption 02/19/2019 Overview (02/23/2019): 2012 C/Section-documented LTCS @34wks for placental abruption, tobacco use. Record scan in to [employer]. Assessment & Plan (11/24/2020 3:21 PM SPECIFICATIONS CHECKER): Placenta appears normal today. She is having very light spotting, felt to be more likely due to labor or cervical friability rather than abruption. Being admitted. Recurrent loss, antepartum 02/19/2019 Overview (03/02/2019): 3 first trimester SAB, also had loss in 2018 she thought was 16 weeks, but 9 wk missed ab seen on sonogram APLAS work-up negative, 01/2019 Opioid use disorder, severe, on maintenance ther apy 02/19/2019 Overview (02/19/2019): Fentanyl Family history of cardiomyopathy, dilated 2018 Assessment & Plan (11/24/2020 3:25 PM SPECIFICATIONS CHECKER): Recommended during last to get maternal ECHO which she never completed. Will attempt to set up at next visit. Methamphetamine use disorder, severe, in early r emission 02/19/2019 Assessment & Plan (11/24/2020 3:26 PM SPECIFICATIONS CHECKER): Encouraged to discontinue use and we discussed the risks during , including the risk of abruption which she has experienced during a previous . Resolved Problems Problem Noted Date Diagnosed Date Resolved Date care and examination 10/01/2019 11/24/2020 Vaginal bleeding 09/18/2019 10/01/2019 Abnormal [place] glucose challenge test, antepartum 08/17/2019 11/24/2020 Overview (08/17/2019): GCT: 142, needs GTT Encounter for anatomic survey 06/10/2019 08/17/2019 Drug use complicating 06/10/2019 08/17/2019 Poor growth, affecting management of mother, antepartum condition or complication 06/10/2019 10/01/2019 Urinary tract infection affe cting care of mother in first trimester, antepartum 02/23/2019 Overview (08/19/2019): Enterococcus UTI. Prescribed Macrobid 100mg BID x 7 days. MICHAEL negative Depression 02/19/2019 02/19/2019 Immunizations Immunization Administration Dates Next Due HEP A VACCINE, ADULT 10/01/2019,02/19/2019 HEP B VACCINE, ADULT 3 DOSE 10/01/2019, 9,02/19/2019 INFLUENZA VACCINE, QUADR. (F LUZONE; FLULAVAL; FLUARIX; AFLURIA QUADRIVALENT; 6MO+), 0.5 ML (IIV4) 11/24/2020,10/01/2019,02/19/2019 Rho D Immune Globulin 11/24/2020, 019(Deferred: Patient Condition),08/17/2019,08/11/2018 TDAP (7yrs+) 11/24/2020,08/17/2019 Family History Medical History Relation Name Comments Cardiomyopathy Father Hypertension Mother Relation Name Status Comments Father Mother Social History Tobacco Use Types Packs/Day Years Used Date Smoking Tobacco: Every Day Cigarettes 0.5 19 Smokeless Tobacco: Never Alcohol Use Standard Drinks/Week Comments No 0 (1 standard drink = 0.6 oz pur e alcohol) Comments No Sex and Gender Information Value Date Recorded Sex Assigned at Not on file Legal Sex Female 9:28 PM SPECIFICATIONS CHECKER Gender Identity Not on file Sexual Orientation Not on file Last Filed Vital Signs Vital Sign Reading Time Taken Comments Blood Pressure 120/61 11/24/2020 3:10 PM SPECIFICATIONS CHECKER Pulse 87 11/24/2020 11:55 AM SPECIFICATIONS CHECKER Temperature 36.7 C (98 F) 11/24/2020 3:10 PM SPECIFICATIONS CHECKER Respiratory Rate 18 11/24/2020 3:10 PM SPECIFICATIONS CHECKER Oxygen Saturation 98% 11/24/2020 3:10 PM SPECIFICATIONS CHECKER Inhaled Oxygen Concentration - - Weight 71.5 kg (157 lb 9.6 oz) 11/24/2020 4:15 P M SPECIFICATIONS CHECKER Height 160 cm (5' 3 ) 11/24/2020 4:15 PM SPECIFICATIONS CHECKER Body Mass Index 27.92 11/24/2020 4:15 PM SPECIFICATIONS CHECKER Plan of Treatment Health Maintenance Due Date Last Done Comments COVID-19 VACCINE (2023- season) 2024 INFLUENZA VACCINE (Season Ended) 2025 11/24/2020, 10/01/2019, 02/19/2019, Additional history exists PAP with HPV 11/24/2025 11/24/2020, 02/19/2019 DTAP/TDAP/TD VACCINES (3 - Td or Tdap) 11/24/2030 11/24/2020, 08/17/2019 ZOSTER VACCINE (1 of 2) 2038 HEPATITIS B VACCINE Completed 10/01/2019, 06/10/2019, 02/19/2019 HEPATITIS C SCREENING Completed 12/20/2020 , 11/24/2020, 09/18/2019, Additional history exists HIV SCREENING Completed 12/20/2020, 10/27, 09/18/2019, Additional history exists HIB VACCINE Aged Out No longer eligi ble based on patient's age to complete this topic HPV VACCINE Aged Out No longer eligi ble based on patient's age to complete this topic MENINGOCOCCAL (Group B) VACCINE SHARED DECISION-MAKING Aged Out No longer eligible based on patient's age to complete this topic MENINGOCOCCAL GROUPS A/C/Y/W VACCINE Aged Out No longer eligible based on patient's age to complete this topic PNEUMOCOCCAL VACCINE Aged Out No long er eligible based on patient's age to complete this topic Procedures Procedure Name Priority Date/Time Associated Diagnosis Comments PAP IG LB+HPV APTIMA Routine 11/24/2020 2:08 PM SPECIFICATIONS CHECKER WISH patient HEPATITIS C ANTIBODY Routine 11/24/2020 1:32 PM SPECIFICATIONS CHECKER WISH patient HIV-1 HIV-2 ANTIBODY + HIV P24 AG PANEL Routine 11/24/2020 1:32 PM SPECIFICATIONS CHECKER WISH patient from Last 3 Months or Most Recently Relevant to Health Maintenance Results * PAP IG LB+HPV APTIMA (11/24/2020 2:08 PM SPECIFICATIONS CHECKER) Diagnosis Comment 11/29/2020 4:09 PM SPECIFICATIONS CHECKER [facility] Comment:NEGATIVE FOR INTRAEP ITHELIAL LESION OR MALIGNANCY. Specimen Adequacy Comment 021 4:09 PM SPECIFICATIONS CHECKER [facility] Comment:Satisfactory for rene luation. No endocervical component is identified. Performed by Comment 11/29/2020 4:09 PM SPECIFICATIONS CHECKER [facility] Comment:Madhuri Recinos, Cyto technologist (ASCP) Comment . 11/29/2020 4:09 PM SPECIFICATIONS CHECKER [facility] Note Comment 11/29/2020 4:09 PM SPECIFICATIONS CHECKER [facility] Comment: The Pap smear is a screening test designed to aid in the detection of premalignant and malignant conditions of the uterine cervix. It is not a diagnostic procedure and should not be used as the sole means of detecting cervical cancer. Both false-positive and false-negative reports do occur. IGLBP CPT Code Automation Comment 11/29/2020 4:09 PM SPECIFICATIONS CHECKER [facility] Comment: This liquid based ThinPrep(R) pap test was screened with the use of an image guided system. Human papillomavirus Aptima Negative Negative 11/29/2020 4:09 PM SPECIFICATIONS CHECKER [facility]) Comment: This nucleic acid amplification test detects fourteen high-risk HPV types (16,18,31,33,35,39,45,51,52,56,58,59,66,68) without differentiation. Pathology/Cytolo gy PART OF UTERINE CERVIX / Unknown Collection / Unknown 11/24/2020 2:08 PM SPECIFICATIONS CHECKER 11/24/2020 3:19 PM SPECIFICATIONS CHECKER Narrative [facility]) - 11/29/2020 4:09 PM SPECIFICATIONS CHECKER Performed at: 01 - [facility] [address], [place] [id number] Edging Machine Feeder: Chula Martin MD, Phone: [phone] Performed at: 02 - [facility] [address] [place], [place] [id number] Edging Machine Feeder: Chula Martin MD, Phone: [phone] Specimen Comment: No. of containers..01 ThinPrep Vial Abby Gomez MD LAB - PATHOLOGY/CYTOLOGY O RDERABLES Final Result [facility] ([facility]) [address] [place] [address] * HIV-1 HIV-2 ANTIBODY + HIV P24 AG PANEL (11/24/2020 1:32 PM SPECIFICATIONS CHECKER) Pathologist [facility] HIV1/2 Ab + P24 Ag Non Reactive Non Reactive 11/24/2020 2:57 PM SPECIFICATIONS CHECKER [facility] Blood BLOOD SPECIMEN / Unknown Venipuncture / Unknown 11/24/2020 1:32 PM SPECIFICATIONS CHECKER 11/24/2020 2:12 PM SPECIFICATIONS CHECKER Narrative [facility] - 11/24/2020 2:57 PM SPECIFICATIONS CHECKER No Laboratory evidence of HIV infection. us Abby Gomez MD LAB - CHEMISTRY ORDERABLES Final Result Performing Organization Address City/[facility]/ZIP Co de Phone Number [facility] [address] [place] [address] * HEPATITIS C ANTIBODY (11/24/2020 1:32 PM SPECIFICATIONS CHECKER) Pathologist [facility] HCV Antibody Screen Non Reactive Non Reactive 11/24/2020 2:58 PM SPECIFICATIONS CHECKER [facility] Blood BLOOD SPECIMEN / Unknown Venipuncture / Unknown 11/24/2020 1:32 PM SPECIFICATIONS CHECKER 11/24/2020 2:12 PM SPECIFICATIONS CHECKER Narrative [facility] - 11/24/2020 2:58 PM SPECIFICATIONS CHECKER Non Reactive - Antibodies to Hepatitis C virus (HCV) were not detected, result does not exclude early acute HCV infection. us Abby Gomez MD LAB - CHEMISTRY ORDERABLES Final Result [facility] [address] [place] [address] from Last 3 Months or Most Recently Relevant to Health Maintenance Insurance MEDICAID [employer] [place] Advance Directives * Full Code (Latest Code Status on File) Date Activated Date Inactivated Comments 11/24/2020 3:23 PM 11/25/2020 12:44 AM * Full Code Date Activated Date Inactivated Comments 09/18/2019 6:46 AM 09/20/2019 4:22 PM Care Teams Boxing Inspector Relationship Specialty Start Date End Date Karina Dill MD [address] [id number] PCP - General 12/21/20
--- NOTE | 2025-03-14 09:24 | ED.CHESTPAIN ---
HPI - Chest Pain General Chief Complaint: Chest Pain Stated Complaint: chest pain Source: patient Mode of arrival: ambulatory Limitations: no limitations History of Present Illness HPI narrative: 34 years old white female came to the ED by private car from home complaining of left chest pain tightness radiating to left upper extremity started 45 minutes prior to arrival. Patient denies aggravating or relieving factors, pain is 7/10, denies history of chest pain. Patient reports some pain at the left lower extremity, calf area to 3 days ago. History of drug abuse, last fentanyl use was last night Related Data Allergies Allergy/AdvReac Type Severity Reaction Status Date / Time No Known Allergies Allergy Verified 09/04/22 01:23 Review of Systems Review of Systems: All systems reviewed & are unremarkable except as noted in HPI and below PMFSH Past Medical History Medical History No active medical problems Surgical History Surgical History H/O bladder repair surgery H/O section Social History Social History Smoking status: Current every day smoker Tobacco type: cigarettes Alcohol intake: current Substance use: current Substance use type: opiates Exam Narrative: General appearance: Well-developed, well-nourished Skin: Normal color Head: Normocephalic, nontraumatic Eyes: Clear conjunctiva ENT: Oropharynx normal, ears normal, nose normal Neck: Supple, nontender Chest and respiratory: Airway patent, no respiratory distress, no accessory muscle use Heart: regular rhythm, tachycardia Abdomen: Soft, nontender, no organomegaly, quiet bowel sounds Vascular: Normal peripheral pulses, normal capillary refill. Musculoskeletal: Normal range of motion, nontender back Neurologic: Alert and oriented ?3, EXTENSION SERVICE SPECIALIST is normal as tested, no gross motor deficit Course Vital Signs Vital signs: Vital Signs Temperature 36.8 C 03/14/25 09:20 Pulse Rate 139 H 03/14/25 09:20 Respiratory Rate 16 03/14/25 09:20 Blood Pressure 176/96 H 03/14/25 09:20 Pulse Oximetry 97 03/14/25 09:20 Oxygen Delivery Room Air 03/14/25 09:20 Temperature 36.8 C 03/14/25 09:20 Pulse Rate 97 03/14/25 11:50 Respiratory Rate 16 03/14/25 11:46 Blood Pressure 140/85 03/14/25 11:45 Pulse Oximetry 95 03/14/25 11:46 Oxygen Delivery Room Air 03/14/25 09:20 MDM - Chest Pain MDM Narrative Medical decision making narrative: patient presents with chest pain 45 minutes prior to arrival Vital signs showing heart rate of 141, blood pressure 177/9 6 otherwise insignificant Physical examination showing patient not in any distress Differential diagnosis include drug related symptoms, pulmonary embolism, less likely coronary artery disease, anxiety like symptoms Blood workup today includes CBC, CMP, serum , D-dimer, TSH showed D-dimer of 0.6, TSH of 11.03 otherwise insignificant Urinalysis showed no evidence of infection Urine drug screen positive for opiates, amphetamine and cannabis. Chest x-ray no showed no acute abnormality, Because elevated D-dimer CTA pulmonary rule out PE came back negative. EKG on arrival showed sinus tachycardia at 100 39 beats minute, The above symptoms resolved during patient presents in the ED. currently blood pressure is 140/85, heart rate 97, patient feeling much better, currently is asymptomatic. Diagnosis poly substance abuse related symptoms, hypothyroidism. The pt was discharged to home.the pt,s condition upon discharge was fair,education was provided to the pt in reference to the final impression,discharge study results,treatment,prognosis and need for follow up . Differential Diagnosis Differential diagnosis: Likely other ( as above) Medical Records Data Attestation: I reviewed the patient's medical records. Lab Data Attestation: I reviewed the patient's lab results. 03/14/25 09:48 03/14/25 09:48 Labs: Lab Results 03/14/25 Range/Units 09:48 WBC 10.4 (4.8-10.8) K/mm3 RBC 4.53 (4.20-5.40) M/mm3 Hgb 12.7 (12.0-15.0) g/dL Hct 38.7 (35.0-49.0) % MCV 85.4 (78.0-102.0) fL MCH 28.0 (27.0-31.0) pg MCHC 32.8 (32-36) g/dL RDW 13.2 (11.6-14.4) % Plt Count 318 (150-420) K/mm3 MPV 10.9 (9.2-11.8) fl Immature Gran % (Auto) 0.2 H (0.0-0.0) % Neut % (Auto) 65.6 (50.0-70.0) % Lymph % (Auto) 27.5 (18.0-42.0) % Mayes % (Auto) 5.8 (2.0-11.0) % Eos % (Auto) 0.6 L (1.0-6.0) % Baso % (Auto) 0.3 (0.0-1.0) % Lymph # (Auto) 2.87 (1.10-4.50) K/mm3 Mayes # (Auto) 0.61 (0.10-0.90) K/mm3 Eos # (Auto) 0.06 (0.02-0.50) K/mm3 Baso # (Auto) 0.03 (0.00-0.10) K/mm3 Abs Immat Gran (auto) 0.02 H (0.00-0.00) K/mm3 Absolute Neuts (auto) 6.85 (1.70-7.20) K/mm3 Absolute Nucleated RBC 0.00 (0.00-0.00) K/mm3 Nucleated RBC % 0.0 (0-0.0) % PT 10.7 (9.50-12.1) Seconds INR 1.0 APTT 24.6 (23.9-30.70) Sec D-Dimer 0.64 H* (0.19-0.50) mg/L Sodium 139 (136-145) mmol/L Potassium 4.6 (3.5-5.1) mmol/L Chloride 102 (98-108) mmol/L Carbon Dioxide 25 (21-32) mmol/L Anion Gap 12 (4-12) mmol/L BUN 12 (7-18) mg/dL Creatinine 0.94 (0.55-1.02) mg/dL Estim Creat Clear Calc 60 ml/min Estimated GFR > 60 (59 - ) Glucose 134 H (70-99) mg/dL Calculated Osmolality 289 (285-295) mOsm/kg Calcium 8.8 (8.5-10.1) mg/dL Total Bilirubin 0.9 (0.00-1.00) mg/dL AST 19 (15-37) U/L ALT 8 L (14-59) U/L Alkaline Phosphatase 94 (46-116) U/L Troponin I 18.8 (0.00-60.4) ng/L NT-Pro-B Natriuret Pep 45 (0-125) pg/mL Total Protein 8.2 (6.4-8.2) g/dL Albumin 3.8 (3.4-5.0) g/dL TSH 11.03 H (0.36-3.74) uIU/mL Serum HCG, Qual Negative Urine Color Yellow (Yellow) Urine Appearance Clear (Clear) Urine pH 6.0 (5.0-8.0) Ur Specific [place] >= 1.030 H (1.010-1.020) Urine Protein 1+ H (Negative) Urine Glucose (UA) Negative (Negative) Urine Ketones Trace H (Negative) Ur Blood (Man) Negative (Negative) Urine Nitrate Negative (Negative) Urine Bilirubin Negative (Negative) Urine Urobilinogen 0.2 (0.2-1.0) mg/dL Leukocyte Esterase Rfl Negative (Negative) JOLLY/UL Ur Squamous Epith Cells Many H (Few) /hpf Amorphous Sediment Heavy H (None) Urine Bacteria 1+ H (None) /hpf Urine Mucus Heavy H /lpf Urine Opiates Screen Positive A (Negative) Urine Methadone Screen Negative (Negative) Ur Barbiturates Screen Negative (Negative) Ur Phencyclidine Scrn Negative (Negative) Ur Amphetamine Screen Positive A (Negative) U Benzodiazepines Scrn Negative (Negative) Urine Cocaine Screen Negative (Negative) U Cannabinoids Screen Positive A (Negative) Imaging Data Attestation: I personally reviewed and interpreted this imaging study as follows: ECG Data EKG #1: Attestation: I personally reviewed and interpreted this ECG as follows: ECG completion date: 03/14/25 ECG completion time: 10:48 Interpretation: Sinus tachycardia at 139 beats per minute, nonspecific ST T-wave abnormalities, abnormal rhythm EKG. Critical Care Time Critical Care Time Critical Care Time: No Discharge Plan Discharge Clinical Impression: Polysubstance dependence including opioid type drug with complication, episodic abuse, Hypothyroidism, Atypical chest pain Patient Disposition: Home Condition: Stable Instructions: Chest Pain (ED), Hypothyroidism (ED), Polysubstance Use Disorder (ED) Patient Language: Italian Prescriptions: No Action diclofenac sodium 50 mg tablet,delayed release (DR/EC) 50 mg PO Q12H PRN (Reason: pain) Qty: 20 0RF clindamycin HCl 300 mg capsule 300 mg PO Q8H Qty: 20 0RF Follow-up/Referrals: Tung Bermudez MD [Primary Care Provider] -
--- OUTSIDE RECORDS SUMMARY | 2025-03-14 09:50 | XMS_ITS | Clinical Summary ---
Author Organization [facility] Address [address] [place] [address] Care Team Providers Care Eastern Philosophy Professor Name Role Phone Karina Dill MD Primary Care Provider Source Comments [facility],non-owned Affiliates and Associated Physician Practices is amultiple site organization consisting of ambulatory clinics and hospital sitesin [place], [place], [place] and [place]. This disclosure is being madepursuant to the Care Everywhere program and may not contain all information available regarding this patient. Last updated 18.[facility] [place] Allergies No known active allergies Medications * [...] naloxone HCl (NARCAN) 4 MG/0.1ML nasal spray [place] 1 spray into the nose as needed [...] BPP/dopplers Assessment & Plan (11/24/2020 3:43 PM WELL LOGGING CAPTAIN MUD ANALYSIS): 11/24/20 ultrasound, EFW 2000g (7%), BPP 8/8, FERNANDO 22.3, breech, fundal placenta, normal UA PI, decrease MCA PI Plan: Repeat ultrasound in 2 weeks for growth, twice weekly NST, weekly BPP/dopplers History of 10/01/2019 Rh negative state in antepartum period 9 Assessment & Plan (11/24/2020 3:27 PM WELL LOGGING CAPTAIN MUD ANALYSIS): Rhogam given 11/24/20 Abnormal Papanicolaou smear of cervix with positive human papilloma virus (HPV) test 03/02/2019 Overview (03/02/2019): 01/2019: NILM repeat co-testing 1 year Assessment & Plan (11/24/2020 3:26 PM WELL LOGGING CAPTAIN MUD ANALYSIS): Repeat performed 11/24/20 History of pre-eclampsia in prior , currently 02/19/2019 Overview (06/11/2019): G1- Hydrochlorothiazide and Lisinopril following delivery Protein/creatinine ration: 0.07, 06/10 Assessment & Plan (11/24/2020 3:17 PM WELL LOGGING CAPTAIN MUD ANALYSIS): Baseline labs today. ASA not started given bleeding as well as advanced gestational age making risks likely outweigh benefits. BP normal. Mild intermittent asthma without complication Assessment & Plan (11/24/2020 3:17 PM WELL LOGGING CAPTAIN MUD ANALYSIS): Albuterol use 1-2/month only. Anxiety 02/19/2019 Assessment & Plan (11/24/2020 3:18 PM WELL LOGGING CAPTAIN MUD ANALYSIS): Not on medications and states does not need currently. Bipolar 1 disorder 02/19/2019 Overview (02/19/2019): Diagnosed in 2010 Assessment & Plan (11/24/2020 3:18 PM WELL LOGGING CAPTAIN MUD ANALYSIS): Not on medications and states does not [...] 11/24/20 Assessment & Plan (11/24/2020 3:20 PM WELL LOGGING CAPTAIN MUD ANALYSIS): Routine labs today, GCT, immunizations, ultrasound, NST. History of delivery 02/19/2019 Overview (06/10/2019): G2- Documented LTCS @ [facility]; placental abruption at 34 weeks, records in media Assessment & Plan (11/24/2020 3:21 PM WELL LOGGING CAPTAIN MUD ANALYSIS): History of 1 , prefers another if possible. History of placenta abruption 02/19/2019 Overview (02/23/2019): 2012 C/Section-documented LTCS @34wks for placental abruption, tobacco use. Record scan in to [facility]. Assessment & Plan (11/24/2020 3:21 PM WELL LOGGING CAPTAIN MUD ANALYSIS): Placenta appears normal today. She is having [...] 2018 Assessment & Plan (11/24/2020 3:25 PM WELL LOGGING CAPTAIN MUD ANALYSIS): Recommended during last to get maternal ECHO which she never completed. Will attempt to set up at next visit. Methamphetamine use disorder, severe, in early r emission 02/19/2019 Assessment & Plan (11/24/2020 3:26 PM WELL LOGGING CAPTAIN MUD ANALYSIS): Encouraged to discontinue use and we discussed [...] on file Legal Sex Female 9:28 PM WELL LOGGING CAPTAIN MUD ANALYSIS Gender Identity Not on file Sexual Orientation Not on file Last Filed Vital Signs Vital Sign Reading Time Taken Comments Blood Pressure 120/61 11/24/2020 3:10 PM WELL LOGGING CAPTAIN MUD ANALYSIS Pulse 87 11/24/2020 11:55 AM WELL LOGGING CAPTAIN MUD ANALYSIS Temperature 36.7 C (98 F) 11/24/2020 3:10 PM WELL LOGGING CAPTAIN MUD ANALYSIS Respiratory Rate 18 11/24/2020 3:10 PM WELL LOGGING CAPTAIN MUD ANALYSIS Oxygen Saturation 98% 11/24/2020 3:10 PM WELL LOGGING CAPTAIN MUD ANALYSIS Inhaled Oxygen Concentration - - Weight 71.5 kg (157 lb 9.6 oz) 11/24/2020 4:15 P M WELL LOGGING CAPTAIN MUD ANALYSIS Height 160 cm (5' 3 ) 11/24/2020 4:15 PM WELL LOGGING CAPTAIN MUD ANALYSIS Body Mass Index 27.92 11/24/2020 4:15 PM WELL LOGGING CAPTAIN MUD ANALYSIS Plan of Treatment Health Maintenance Due Date [...] IG LB+HPV APTIMA Routine 11/24/2020 2:08 PM WELL LOGGING CAPTAIN MUD ANALYSIS WISH patient HEPATITIS C ANTIBODY Routine 11/24/2020 1:32 PM WELL LOGGING CAPTAIN MUD ANALYSIS WISH patient HIV-1 HIV-2 ANTIBODY + HIV P24 AG PANEL Routine 11/24/2020 1:32 PM WELL LOGGING CAPTAIN MUD ANALYSIS WISH patient from Last 3 Months or Most Recently Relevant to Health Maintenance Results * PAP IG LB+HPV APTIMA (11/24/2020 2:08 PM WELL LOGGING CAPTAIN MUD ANALYSIS) Diagnosis Comment 11/29/2020 4:09 PM WELL LOGGING CAPTAIN MUD ANALYSIS [facility] ([facility]) Comment:NEGATIVE FOR INTRAEP ITHELIAL LESION OR MALIGNANCY. Specimen Adequacy Comment 021 4:09 PM WELL LOGGING CAPTAIN MUD ANALYSIS [facility] ([facility]) Comment:Satisfactory for rene luation. No endocervical component is identified. Performed by Comment 11/29/2020 4:09 PM WELL LOGGING CAPTAIN MUD ANALYSIS [facility] ([facility]) Comment:Madhuri Recinos, Cyto technologist (ASCP) Comment . 11/29/2020 4:09 PM WELL LOGGING CAPTAIN MUD ANALYSIS [facility] ([facility]) Note Comment 11/29/2020 4:09 PM WELL LOGGING CAPTAIN MUD ANALYSIS [facility] ([facility]) Comment: The Pap smear is a screening test designed to aid in the detection of premalignant and malignant conditions of the uterine cervix. It is not a diagnostic procedure and should not be used as the sole means of detecting cervical cancer. Both false-positive and false-negative reports do occur. IGLBP CPT Code Automation Comment 11/29/2020 4:09 PM WELL LOGGING CAPTAIN MUD ANALYSIS [facility] ([facility]) Comment: This liquid based ThinPrep(R) pap test was screened with the use of an image guided system. Human papillomavirus Aptima Negative Negative 11/29/2020 4:09 PM WELL LOGGING CAPTAIN MUD ANALYSIS [facility] ([facility]) Comment: This nucleic acid amplification test detects fourteen high-risk HPV types (16,18,31,33,35,39,45,51,52,56,58,59,66,68) without differentiation. Pathology/Cytolo gy PART OF UTERINE CERVIX / Unknown Collection / Unknown 11/24/2020 2:08 PM WELL LOGGING CAPTAIN MUD ANALYSIS 11/24/2020 3:19 PM WELL LOGGING CAPTAIN MUD ANALYSIS Narrative [facility] ([facility]) - 11/29/2020 4:09 PM WELL LOGGING CAPTAIN MUD ANALYSIS Performed at: 01 - [facility] [address], [place] [id number] Finish Inspector: Chula Martin MD, Phone: [phone] Performed at: 02 - [facility] [address] [place], [place] [id number] Finish Inspector: Chula Martin MD, Phone: [phone] Specimen Comment: No. of containers..01 ThinPrep Vial Abby Gomez MD LAB - PATHOLOGY/CYTOLOGY O RDERABLES Final Result [facility] ([facility]) [address] [place] [address] * HIV-1 HIV-2 ANTIBODY + HIV P24 AG PANEL (11/24/2020 1:32 PM WELL LOGGING CAPTAIN MUD ANALYSIS) Pathologist [facility] [place] HIV1/2 Ab + P24 Ag Non Reactive Non Reactive 11/24/2020 2:57 PM WELL LOGGING CAPTAIN MUD ANALYSIS [facility] Blood BLOOD SPECIMEN / Unknown Venipuncture / Unknown 11/24/2020 1:32 PM WELL LOGGING CAPTAIN MUD ANALYSIS 11/24/2020 2:12 PM WELL LOGGING CAPTAIN MUD ANALYSIS Narrative [facility] - 11/24/2020 2:57 PM WELL LOGGING CAPTAIN MUD ANALYSIS No Laboratory evidence of HIV infection. us Abby Gomez MD LAB - CHEMISTRY ORDERABLES Final Result Performing Organization Address City/[facility]/ZIP Co de Phone Number [facility] [address] [place] [address] * HEPATITIS C ANTIBODY (11/24/2020 1:32 PM WELL LOGGING CAPTAIN MUD ANALYSIS) Pathologist [facility] [place] HCV Antibody Screen Non Reactive Non Reactive 11/24/2020 2:58 PM WELL LOGGING CAPTAIN MUD ANALYSIS [facility] Blood BLOOD SPECIMEN / Unknown Venipuncture / Unknown 11/24/2020 1:32 PM WELL LOGGING CAPTAIN MUD ANALYSIS 11/24/2020 2:12 PM WELL LOGGING CAPTAIN MUD ANALYSIS Narrative [facility] - 11/24/2020 2:58 PM WELL LOGGING CAPTAIN MUD ANALYSIS Non Reactive - Antibodies to Hepatitis C virus (HCV) were not detected, result does not exclude early acute HCV infection. us Abby Gomez MD LAB - CHEMISTRY ORDERABLES Final Result [facility] [address] [place] [address] from Last 3 Months or Most Recently Relevant to Health Maintenance Insurance MEDICAID [employer] [place] Advance Directives * Full Code (Latest Code Status on File) Date Activated Date Inactivated Comments 11/24/2020 3:23 PM 11/25/2020 12:44 AM * Full Code Date Activated Date Inactivated Comments 09/18/2019 6:46 AM 09/20/2019 4:22 PM Care Teams Eastern Philosophy Professor Relationship Specialty Start Date End Date Karina Dill MD [address] [phone] PCP - General 12/21/20
--- OUTSIDE RECORDS SUMMARY | 2025-03-14 09:50 | XMS_ITS | Clinical Summary ---
Author Organization [facility] Address [address] [place] [address] Care Team Providers Care General Neurologist Name Role Phone None, Provider MD Primary [...] Problem Noted Date Diagnosed Date Breech presentation ([facility]) 12/20/2020 delivery delivered ([facility]) 12/20/2020 Post-operative complication 12/20/2020 Family History Relation [...] on file Legal Sex Female 2:15 AM JAVA J2EE SOFTWARE ENGINEER Gender Identity Not on file Sexual Orientation Not on file Last Filed Vital Signs Vital Sign Reading Time Taken Comments Blood Pressure 138/67 12/24/2020 12:26 PM JAVA J2EE SOFTWARE ENGINEER Pulse 92 12/24/2020 12:26 PM JAVA J2EE SOFTWARE ENGINEER Temperature 36.2 C (97.2 F) 12/24/2020 8:28 AM JAVA J2EE SOFTWARE ENGINEER Respiratory Rate 16 12/24/2020 6:10 AM JAVA J2EE SOFTWARE ENGINEER Oxygen Saturation 93% 12/22/2020 9:17 AM JAVA J2EE SOFTWARE ENGINEER Inhaled Oxygen Concentration - - Weight 54.4 kg (120 lb) 12/20/2020 12:00 PM JAVA J2EE SOFTWARE ENGINEER Height 160 cm (5' 3 ) 12/20/2020 12:00 PM JAVA J2EE SOFTWARE ENGINEER Body Mass Index 21.26 12/20/2020 12:00 PM JAVA J2EE SOFTWARE ENGINEER Plan of Treatment Health Maintenance Due Date [...] HEPATITIS C ANTIBODY Routine 12/20/2020 9:11 AM JAVA J2EE SOFTWARE ENGINEER from Last 3 Months or Most Recently Relevant to Health Maintenance Results * HEPATITIS C ANTIBODY (12/20/2020 9:11 AM JAVA J2EE SOFTWARE ENGINEER) HEPATITIS C AB NON-REACTI VE NON-REACT BEATRICE 12/20/2020 6:38 PM JAVA J2EE SOFTWARE ENGINEER [facility] Comment: ANTIBODIES TO HCV NOT DETECTED. DOES NOT EXCLUDE THE POSSIBILITY OF EXPOSURE TO HCV. 12/20/2020 9:11 AM JAVA J2EE SOFTWARE ENGINEER us Virgil Paredes MD LABORATORY Final Result Performing Organization Address City/State/[facility] Co de Phone Number [facility] [address] [place] [address], [id number] from Last 3 Months or Most Recently Relevant to Health Maintenance Insurance Advance Directives Documents on File Type Date Recorded Patient Machine Repairer Maintenance Expl anation Legal Documents 08/02/2022 4:46 PM COMPLETE D BILLING REQUEST FOR [employer] * Full Code (Latest Code Status on File) Date Activated Date Inactivated Comments 12/20/2020 12:21 PM 12/24/2020 5:01 PM * Full Code Date Activated Date Inactivated Comments 12/20/2020 8:59 AM 12/20/2020 11:41 AM Care Teams General Neurologist Relationship Specialty Start Date End Date None, Provider, PCP - General 12/20/20
[2025-03-14 09:56] LABS: Basophils Absolute Auto 0.03 K/mm3 (0.00-0.10); Basophils Percent Auto 0.3 % (0.0-1.0); Eosinophils Absolute Auto 0.06 K/mm3 (0.02-0.50); Eosinophils Percent Auto 0.6 % (1.0-6.0); Hematocrit 38.7 % (35.0-49.0); Hemoglobin 12.7 g/dL (12.0-15.0); Immature Granulocyte Absolute 0.02 K/mm3 (0.00-0.00); Immature Granulocyte Percent A 0.2 % (0.0-0.0); Lymphocytes Absolute Auto 2.87 K/mm3 (1.10-4.50); Lymphocytes Percent Auto 27.5 % (18.0-42.0); Mean Corpuscular HGB Conc 32.8 g/dL (32-36); Mean Corpuscular Volume 85.4 fL (78.0-102.0); Mean Platelet Volume 10.9 fl (9.2-11.8); Monocytes Absolute Auto 0.61 K/mm3 (0.10-0.90); Monocytes Percent Auto 5.8 % (2.0-11.0); Neutrophils Absolute Auto 6.85 K/mm3 (1.70-7.20); Neutrophils Percent Auto 65.6 % (50.0-70.0); Platelet Count Result 318 K/mm3 (150-420); Red Blood Count 4.53 M/mm3 (4.20-5.40); Red Cell Distribution Width 13.2 % (11.6-14.4); White Blood Count 10.4 K/mm3 (4.8-10.8)
[2025-03-14 10:06] LABS: SPREG INTERNAL CONTROL Positive; Serum Qual hCG Negative
[2025-03-14 10:10] LABS: Add Urine Microscopic? YES; Appearance Urine Clear (Clear); Bilirubin Urine Negative (Negative); Blood Urine Negative (Negative); Color Urine Yellow (Yellow); Glucose Urine UA Negative (Negative); Ketones Urine Trace (Negative); Leukocyte Esterase Ur Negative LEU/UL (Negative); Nitrate Urine Negative (Negative); Protein Urine 1+ (Negative); Specific Grav Ur >= 1.030 (1.010-1.020); Urobilinogen Urine 0.2 mg/dL (0.2-1.0)
[2025-03-14 10:17] LABS: Amphetamine Screen Urine Positive (Negative); Barbiturate Screen Urine Negative (Negative); Benzodiazepines Screen Urine Negative (Negative); Cannabinoid Screen Urine Positive (Negative); Cocaine Screen Urine Negative (Negative); Methadone Screen Urine Negative (Negative); Opiate Screen Urine Positive (Negative); Phencyclidine Screen Urine Negative (Negative)
[2025-03-14 10:18] LABS: Alanine Aminotransferase 8 U/L (14-59); Albumin Level 3.8 g/dL (3.4-5.0); Alkaline Phosphatase 94 U/L (46-116); Anion Gap 12 mmol/L (4-12); Aspartate Amino Transferase 19 U/L (15-37); Bilirubin,Total 0.9 mg/dL (0.00-1.00); Blood Urea Nitrogen 12 mg/dL (7-18); Calcium 8.8 mg/dL (8.5-10.1); Carbon Dioxide 25 mmol/L (21-32); Chloride 102 mmol/L (98-108); Estimated CRCL calculation 60 ml/min; Estimated Glomerular Filt Rate > 60; Glucose 134 mg/dL (70-99); NT Pro B Type Natriuretic Pept 45 pg/mL (0-125); Osmolality Calculated 289 mOsm/kg (285-295); Potassium 4.6 mmol/L (3.5-5.1); Sodium 139 mmol/L (136-145); Thyroid Stimulating Hormone 11.03 uIU/mL (0.36-3.74); Total Protein 8.2 g/dL (6.4-8.2); Troponin I 18.8 ng/L (0.00-60.4)
[2025-03-14 10:21] LABS: Amorphous Sediment Urine Heavy; Bacteria Urine 1+ /hpf; Mucus Urine Heavy /lpf; Squamous Epithelial Cell Urine Many /hpf (Few)
[2025-03-14 10:35] LABS: Partial Thromboplastin Time 24.6 Sec (23.9-30.70); Prothrombin Time 10.7 Seconds (9.50-12.1)
[2025-03-14 10:37] LABS: D Dimer 0.64 mg/L (0.19-0.50)
== END 2025-03-14 12:05 | disposition home or self-care (01) ==
PROVIDERS: Emergency Provider Emergency Medicine; PCP Internal Medicine
DX: F11.20 Opioid dependence, uncomplicated (principal); F19.20 Other psychoactive substance dependence, uncomplicated; R07.9 Chest pain, unspecified; E03.9 Hypothyroidism, unspecified; F17.210 Nicotine dependence, cigarettes, uncomplicated
CPT/HCPCS: 36415; 71045; 71275; 80053; 80307; 81001; 83880; 84443; 84484; 84703; 85025; 85380; 85610; 85730; 93005; 99284; Q9967

== ENCOUNTER 2025-04-05 14:33 | Emergency (ER) | payer OTHER, SELFPAY ==
--- NOTE | ~2025-04-05 | CT_ITS ---
EXAMINATION: CT abdomen pelvis w con DATE: 04/05/2025 17:24 INDICATION: RIGHT UPPER QUADRANT, RIGHT FLANK PAIN TECHNIQUE: Computed tomography (CT) of the abdomen and pelvis was performed with 100 mL Omnipaque-350 intravenous contrast. Automated exposure control and iterative reconstruction technique were employe d. The dose-length product was 387.28 mGy-cm. COMPARISON: None. FINDINGS: Somewhat limited contrast enhancement. Lower thorax: Unremarkable Liver: Normal. Biliary/Gallbladder: Gallbladder is normal. No bile duct dilation. Pancreas: No mass or duct dilation. Mild atrophy. Spleen: Normal. Adrenals:No mass. Kidneys: No suspicious mass, obstructing stone, or hydronephrosis. Patchy bilateral renal parenchymal enhancement. GI tract: No small or large bowel dilation. Normal appendix. Mesentery/Peritoneum: No ascites, mass, or free air. Retroperitoneum: No mass. Pelvis: Pelvic organs are within normal limits. Soft Tissues: Soft tissues and body wall unremarkable. Bones: No acute osseous finding. IMPRESSION: Hepatomegaly. Patchy bilateral renal enhancement, may reflect pyelonephritis in the appropriate clinical context Reviewed, dictated and finalized at location K. IMPRESSION: Hepatomegaly. Patchy bilateral renal enhancement, may reflect pyelonephritis in the appropria te clinical context
--- OUTSIDE RECORDS SUMMARY | 2025-04-05 14:37 | XMS_ITS | Clinical Summary ---
Author Organization [facility] Address [address] [place] [address] Care Team Providers Care Mannequin Molder Name Role Phone Karina Dill MD Primary Care Provider Source Comments [facility],non-owned Affiliates and Associated Physician Practices is amultiple site organization consisting of ambulatory clinics and hospital sitesin [place], [place], [place] and [place]. This disclosure is being madepursuant to the Care Everywhere program and may not contain all information available regarding this patient. Last updated 18.[facility] [place] Allergies No known active allergies Medications * [...] naloxone HCl (NARCAN) 4 MG/0.1ML nasal spray [place] 1 spray into the nose as needed [...] BPP/dopplers Assessment & Plan (11/24/2020 3:43 PM GUEST ADVISOR): 11/24/20 ultrasound, EFW 2000g (7%), BPP 8/8, FERNANDO 22.3, breech, fundal placenta, normal UA PI, decrease MCA PI Plan: Repeat ultrasound in 2 weeks for growth, twice weekly NST, weekly BPP/dopplers History of 10/01/2019 Rh negative state in antepartum period 9 Assessment & Plan (11/24/2020 3:27 PM GUEST ADVISOR): Rhogam given 11/24/20 Abnormal Papanicolaou smear of cervix with positive human papilloma virus (HPV) test 03/02/2019 Overview (03/02/2019): 01/2019: NILM repeat co-testing 1 year Assessment & Plan (11/24/2020 3:26 PM GUEST ADVISOR): Repeat performed 11/24/20 History of pre-eclampsia in prior , currently 02/19/2019 Overview (06/11/2019): G1- Hydrochlorothiazide and Lisinopril following delivery Protein/creatinine ration: 0.07, 06/10 Assessment & Plan (11/24/2020 3:17 PM GUEST ADVISOR): Baseline labs today. ASA not started given bleeding as well as advanced gestational age making risks likely outweigh benefits. BP normal. Mild intermittent asthma without complication Assessment & Plan (11/24/2020 3:17 PM GUEST ADVISOR): Albuterol use 1-2/month only. Anxiety 02/19/2019 Assessment & Plan (11/24/2020 3:18 PM GUEST ADVISOR): Not on medications and states does not need currently. Bipolar 1 disorder 02/19/2019 Overview (02/19/2019): Diagnosed in 2010 Assessment & Plan (11/24/2020 3:18 PM GUEST ADVISOR): Not on medications and states does not [...] 11/24/20 Assessment & Plan (11/24/2020 3:20 PM GUEST ADVISOR): Routine labs today, GCT, immunizations, ultrasound, NST. History of delivery 02/19/2019 Overview (06/10/2019): G2- Documented LTCS @ [facility]; placental abruption at 34 weeks, records in media Assessment & Plan (11/24/2020 3:21 PM GUEST ADVISOR): History of 1 , prefers another if possible. History of placenta abruption 02/19/2019 Overview (02/23/2019): 2012 C/Section-documented LTCS @34wks for placental abruption, tobacco use. Record scan in to [facility]. Assessment & Plan (11/24/2020 3:21 PM GUEST ADVISOR): Placenta appears normal today. She is having [...] 2018 Assessment & Plan (11/24/2020 3:25 PM GUEST ADVISOR): Recommended during last to get maternal ECHO which she never completed. Will attempt to set up at next visit. Methamphetamine use disorder, severe, in early r emission 02/19/2019 Assessment & Plan (11/24/2020 3:26 PM GUEST ADVISOR): Encouraged to discontinue use and we discussed [...] on file Legal Sex Female 9:28 PM GUEST ADVISOR Gender Identity Not on file Sexual Orientation Not on file Last Filed Vital Signs Vital Sign Reading Time Taken Comments Blood Pressure 120/61 11/24/2020 3:10 PM GUEST ADVISOR Pulse 87 11/24/2020 11:55 AM GUEST ADVISOR Temperature 36.7 C (98 F) 11/24/2020 3:10 PM GUEST ADVISOR Respiratory Rate 18 11/24/2020 3:10 PM GUEST ADVISOR Oxygen Saturation 98% 11/24/2020 3:10 PM GUEST ADVISOR Inhaled Oxygen Concentration - - Weight 71.5 kg (157 lb 9.6 oz) 11/24/2020 4:15 P M GUEST ADVISOR Height 160 cm (5' 3 ) 11/24/2020 4:15 PM GUEST ADVISOR Body Mass Index 27.92 11/24/2020 4:15 PM GUEST ADVISOR Plan of Treatment Health Maintenance Due Date [...] IG LB+HPV APTIMA Routine 11/24/2020 2:08 PM GUEST ADVISOR WISH patient HEPATITIS C ANTIBODY Routine 11/24/2020 1:32 PM GUEST ADVISOR WISH patient HIV-1 HIV-2 ANTIBODY + HIV P24 AG PANEL Routine 11/24/2020 1:32 PM GUEST ADVISOR WISH patient from Last 3 Months or Most Recently Relevant to Health Maintenance Results * PAP IG LB+HPV APTIMA (11/24/2020 2:08 PM GUEST ADVISOR) Diagnosis Comment 11/29/2020 4:09 PM GUEST ADVISOR [facility] ([facility]) Comment:NEGATIVE FOR INTRAEP ITHELIAL LESION OR MALIGNANCY. Specimen Adequacy Comment 021 4:09 PM GUEST ADVISOR [facility] ([facility]) Comment:Satisfactory for rene luation. No endocervical component is identified. Performed by Comment 11/29/2020 4:09 PM GUEST ADVISOR [facility] ([facility]) Comment:Madhuri Recinos, Cyto technologist (ASCP) Comment . 11/29/2020 4:09 PM GUEST ADVISOR [facility] ([facility]) Note Comment 11/29/2020 4:09 PM GUEST ADVISOR [facility] ([facility]) Comment: The Pap smear is a screening test designed to aid in the detection of premalignant and malignant conditions of the uterine cervix. It is not a diagnostic procedure and should not be used as the sole means of detecting cervical cancer. Both false-positive and false-negative reports do occur. IGLBP CPT Code Automation Comment 11/29/2020 4:09 PM GUEST ADVISOR [facility] ([facility]) Comment: This liquid based ThinPrep(R) pap test was screened with the use of an image guided system. Human papillomavirus Aptima Negative Negative 11/29/2020 4:09 PM GUEST ADVISOR [facility] ([facility]) Comment: This nucleic acid amplification test detects fourteen high-risk HPV types (16,18,31,33,35,39,45,51,52,56,58,59,66,68) without differentiation. Pathology/Cytolo gy PART OF UTERINE CERVIX / Unknown Collection / Unknown 11/24/2020 2:08 PM GUEST ADVISOR 11/24/2020 3:19 PM GUEST ADVISOR Narrative [facility] ([facility]) - 11/29/2020 4:09 PM GUEST ADVISOR Performed at: 01 - [facility] [address], [place] [id number] Cardroom Plastic Card Grader: Chula Martin MD, Phone: [phone] Performed at: 02 - [facility] [address] [place], [place] [id number] Cardroom Plastic Card Grader: Chula Martin MD, Phone: [phone] Specimen Comment: No. of containers..01 ThinPrep Vial Abby Gomez MD LAB - PATHOLOGY/CYTOLOGY O RDERABLES Final Result [facility] ([facility]) [address] [place] [address] * HIV-1 HIV-2 ANTIBODY + HIV P24 AG PANEL (11/24/2020 1:32 PM GUEST ADVISOR) Pathologist [facility] HIV1/2 Ab + P24 Ag Non Reactive Non Reactive 11/24/2020 2:57 PM GUEST ADVISOR [facility] Blood BLOOD SPECIMEN / Unknown Venipuncture / Unknown 11/24/2020 1:32 PM GUEST ADVISOR 11/24/2020 2:12 PM GUEST ADVISOR Narrative [facility] - 11/24/2020 2:57 PM GUEST ADVISOR No Laboratory evidence of HIV infection. us Abby Gomez MD LAB - CHEMISTRY ORDERABLES Final Result Performing Organization Address City/[facility]/ZIP Co de Phone Number [facility] [address] [place] [address] * HEPATITIS C ANTIBODY (11/24/2020 1:32 PM GUEST ADVISOR) Pathologist [facility] HCV Antibody Screen Non Reactive Non Reactive 11/24/2020 2:58 PM GUEST ADVISOR [facility] Blood BLOOD SPECIMEN / Unknown Venipuncture / Unknown 11/24/2020 1:32 PM GUEST ADVISOR 11/24/2020 2:12 PM GUEST ADVISOR Narrative [facility] - 11/24/2020 2:58 PM GUEST ADVISOR Non Reactive - Antibodies to Hepatitis C virus (HCV) were not detected, result does not exclude early acute HCV infection. us Abby Gomez MD LAB - CHEMISTRY ORDERABLES Final Result [facility] [address] [place] [address] from Last 3 Months or Most Recently Relevant to Health Maintenance Insurance MEDICAID [employer] [place] Advance Directives * Full Code (Latest Code Status on File) Date Activated Date Inactivated Comments 11/24/2020 3:23 PM 11/25/2020 12:44 AM * Full Code Date Activated Date Inactivated Comments 09/18/2019 6:46 AM 09/20/2019 4:22 PM Care Teams Mannequin Molder Relationship Specialty Start Date End Date Karina Dill MD [address] [phone] PCP - General 12/21/20
--- OUTSIDE RECORDS SUMMARY | 2025-04-05 14:37 | XMS_ITS | Clinical Summary ---
Author Organization [facility] Address [address] [place] [id number] Care Team Providers Care Helper Animal Laboratory Name Role Phone None, Provider MD Primary [...] Problem Noted Date Diagnosed Date Breech presentation ([facility]) 12/20/2020 delivery delivered ([facility]) 12/20/2020 Post-operative complication 12/20/2020 Family History Relation [...] on file Legal Sex Female 2:15 AM CASE LINER Gender Identity Not on file Sexual Orientation Not on file Last Filed Vital Signs Vital Sign Reading Time Taken Comments Blood Pressure 138/67 12/24/2020 12:26 PM CASE LINER Pulse 92 12/24/2020 12:26 PM CASE LINER Temperature 36.2 C (97.2 F) 12/24/2020 8:28 AM CASE LINER Respiratory Rate 16 12/24/2020 6:10 AM CASE LINER Oxygen Saturation 93% 12/22/2020 9:17 AM CASE LINER Inhaled Oxygen Concentration - - Weight 54.4 kg (120 lb) 12/20/2020 12:00 PM CASE LINER Height 160 cm (5' 3 ) 12/20/2020 12:00 PM CASE LINER Body Mass Index 21.26 12/20/2020 12:00 PM CASE LINER Plan of Treatment Health Maintenance Due Date [...] HEPATITIS C ANTIBODY Routine 12/20/2020 9:11 AM CASE LINER from Last 3 Months or Most Recently Relevant to Health Maintenance Results * HEPATITIS C ANTIBODY (12/20/2020 9:11 AM CASE LINER) HEPATITIS C AB NON-REACTI VE NON-REACT BEATRICE 12/20/2020 6:38 PM CASE LINER [facility] Comment: ANTIBODIES TO HCV NOT DETECTED. DOES NOT EXCLUDE THE POSSIBILITY OF EXPOSURE TO HCV. 12/20/2020 9:11 AM CASE LINER us Virgil Paredes MD LABORATORY Final Result Performing Organization Address City/State/[facility] Co de Phone Number [facility] [address] [place] [address], [phone] from Last 3 Months or Most Recently Relevant to Health Maintenance Insurance Advance Directives Documents on File Type Date Recorded Patient Garbage Worker Expl anation Legal Documents 08/02/2022 4:46 PM COMPLETE D BILLING REQUEST FOR [employer] * Full Code (Latest Code Status on File) Date Activated Date Inactivated Comments 12/20/2020 12:21 PM 12/24/2020 5:01 PM * Full Code Date Activated Date Inactivated Comments 12/20/2020 8:59 AM 12/20/2020 11:41 AM Care Teams Helper Animal Laboratory Relationship Specialty Start Date End Date None, Provider, PCP - General 12/20/20
[2025-04-05 14:43] VITALS: BP 149/87; PULSE 105; RESP 20; TEMP 36.7; O2SAT 99
--- NOTE | 2025-04-05 14:47 | ED.NAVMDI ---
HPI - Nausea/Vomiting/Diarrhea General Chief complaint: Nausea/Vomiting/Diarrhea Stated complaint: N/V/D Time Seen by Provider: 04/05/25 14:46 Source: patient Mode of arrival: ambulatory Limitations: no limitations History of Present Illness HPI Narrative: 34 YEARS OLD WHITE FEMALE DROVE HERSELF TO THE EMERGENCY ROOM COMPLAINING OF BURNING URINATION, FREQUENCY, RIGHT UPPER QUADRANT PAIN RADIATING TO RIGHT FLANK AREA, INTERMITTENT VOMITING. FOUR WEEKS. GOT WORSE OVER THE LAST 7 DAYS. PATIENT IS TELLING ME THAT SHE LOST ROUGHLY 40 LB OVER THE LAST FEW MONTHS. HISTORY OF HYPOTHYROIDISM, HISTORY OF CURRENT DRUG ABUSE, MARIJUANA, METH AND FENTANYL, TOBACCO DEPENDENT, PATIENT ON NO MEDICATION AT HOME. SHE DENIES ANY FEVER, CHILLS. HISTORY OF SECTION X2 Related Data Allergies Allergy/AdvReac Type Severity Reaction Status Date / Time No Known Allergies Allergy Verified 09/04/22 01:23 Review of Systems Review of Systems: All systems reviewed & are unremarkable except as noted in HPI and below PMFSH Past Medical History Medical History No active medical problems Surgical History Surgical History H/O bladder repair surgery H/O section Social History Social History Smoking status: Current every day smoker Tobacco type: cigarettes Alcohol intake: current Substance use: current Substance use type: opiates Exam Narrative: GENERAL APPEARANCE: WELL-DEVELOPED, WELL-NOURISHED SKIN: NORMAL COLOR HEAD: NORMOCEPHALIC, NONTRAUMATIC EYES: CLEAR CONJUNCTIVA ENT: OROPHARYNX NORMAL, EARS NORMAL, NOSE NORMAL NECK: SUPPLE, NONTENDER CHEST AND RESPIRATORY: AIRWAY PATENT, NO RESPIRATORY DISTRESS, NO ACCESSORY MUSCLE USE HEART: REGULAR RATE/RHYTHM ABDOMEN: SOFT, MILD RIGHT UPPER QUADRANT TENDERNESS, NO REBOUND, NO GUARDING, NO RASH OR ORGANOMEGALY. RIGHT FLANK TENDERNESS., NO ORGANOMEGALY, QUIET BOWEL SOUNDS VASCULAR: NORMAL PERIPHERAL PULSES, NORMAL CAPILLARY REFILL. 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, NO GROSS MOTOR DEFICIT Course Vital Signs Vital signs: Vital Signs Temperature 36.7 C 04/05/25 14:43 Pulse Rate 105 H 04/05/25 14:43 Respiratory Rate 20 04/05/25 14:43 Blood Pressure 149/87 H 04/05/25 14:43 Pulse Oximetry 99 04/05/25 14:43 Oxygen Delivery Room Air 04/05/25 14:43 Temperature 36.7 C 04/05/25 14:43 Pulse Rate 100 04/05/25 18:30 Respiratory Rate 20 04/05/25 18:30 Blood Pressure 148/87 H 04/05/25 18:30 Pulse Oximetry 94 04/05/25 18:30 Oxygen Delivery Room Air 04/05/25 18:30 MDM - Nausea/Vomiting/Diarrhea MDM Narrative Medical decision making narrative: PATIENT CAME TO THE ED BY PRIVATE CAR COMPLAINING OF FREQUENT URINATION AND BURNING SENSATION RIGHT UPPER QUADRANT PAIN RADIATING TO RIGHT FLANK AREA VITAL SIGNS SHOWING HEART RATE OF 105 OTHERWISE WITHIN NORMAL LIMIT PHYSICAL EXAMINATION CONSISTENT WITH TENDERNESS AT THE RIGHT UPPER QUADRANT AND RIGHT FLANK AREA DIFFERENTIAL DIAGNOSIS INCLUDE URINARY TRACT INFECTION INCLUDING PYELONEPHRITIS, CHOLECYSTITIS, CONSTIPATION, DIVERTICULITIS, COLITIS BLOOD WORKUP TODAY INCLUDES CBC, CMP, LIPASE SHOWED WBC 11.1, PLATELET COUNT 586, ALT IS 37, ALKALINE PHOSPHATASE 222, OTHERWISE WITHIN NORMAL LIMIT URINALYSIS SHOWED LEUKOCYTE ESTRACE, TRACE, URINE RBC'S 21-50, URINE BACTERIA 1+ CT ABDOMEN AND PELVIS WITH IV CONTRAST SHOWED PYELONEPHRITIS PATIENT ASKED ABOUT TO LEAVE THE ED TO GO HOME TO GET SOME DOPE BECAUSE SHE DOES NOT HAVE ANY WITH HER RIGHT NOW. FEW MINUTES LATER PATIENT ELOPED AND STILL HAVE HER IV ACCESS. THE POLICE WAS NOTIFIED Differential Diagnosis Differential diagnosis: Likely gastroenteritis, drug-induced nausea and vomiting and dehydration Medical Records Attestation: I reviewed the patient's medical records. Lab Data Attestation: I reviewed the patient's lab results. 04/05/25 15:38 04/05/25 15:38 Labs: Lab Results 04/05/25 04/05/25 Range/Units 15:38 16:17 WBC 11.1 H (4.8-10.8) K/mm3 RBC 4.21 (4.20-5.40) M/mm3 Hgb 11.5 L (12.0-15.0) g/dL Hct 36.2 (35.0-49.0) % MCV 86.0 (78.0-102.0) fL MCH 27.3 (27.0-31.0) pg MCHC 31.8 L (32-36) g/dL RDW 12.8 (11.6-14.4) % Plt Count 586 H (150-420) K/mm3 MPV 10.1 (9.2-11.8) fl Immature Gran % (Auto) 0.5 H (0.0-0.0) % Neut % (Auto) 76.3 H (50.0-70.0) % Lymph % (Auto) 18.8 (18.0-42.0) % [place] % (Auto) 3.6 (2.0-11.0) % Eos % (Auto) 0.4 L (1.0-6.0) % Baso % (Auto) 0.4 (0.0-1.0) % Lymph # (Auto) 2.08 (1.10-4.50) K/mm3 Hamilton # (Auto) 0.40 (0.10-0.90) K/mm3 Eos # (Auto) 0.04 (0.02-0.50) K/mm3 Baso # (Auto) 0.04 (0.00-0.10) K/mm3 Abs Immat Gran (auto) 0.05 H (0.00-0.00) K/mm3 Absolute Neuts (auto) 8.44 H (1.70-7.20) K/mm3 Absolute Nucleated RBC 0.00 (0.00-0.00) K/mm3 Nucleated RBC % 0.0 (0-0.0) % % Immature Plt Fraction 2.3 (1.0-7.0) % Sodium 140 (137-145) mmol/L Potassium 4.3 (3.4-5.0) mmol/L Chloride 105 (98-107) mmol/L Carbon Dioxide 28 (22-30) mmol/L Anion Gap 7 (4-12) mmol/L BUN 11 (7-17) mg/dL Creatinine 0.73 (0.7-1.0) mg/dL Estim Creat Clear Calc 76 ml/min Estimated GFR > 60 (59 - ) Glucose 102 (65-110) mg/dL Calculated Osmolality 289 (285-295) mOsm/kg Calcium 8.7 (8.4-10.2) mg/dL Total Bilirubin 0.7 (0.2-1.3) mg/dL AST 33 (14-36) U/L ALT 37 H (6-35) U/L Alkaline Phosphatase 222 H (38-126) U/L Total Protein 7.7 (6.3-8.2) g/dL Albumin 4.1 (3.5-5.1) g/dL Lipase 43 (23-300) U/L Urine Color Dark yellow (Yellow) Urine Appearance Clear (Clear) Urine pH 6.0 (5.0-8.0) Ur Specific [place] 1.025 H (1.010-1.020) Urine Protein 1+ H (Negative) Urine Glucose (UA) Negative (Negative) Urine Ketones Negative (Negative) Ur Blood (Man) 2+ H (Negative) Urine Nitrate Negative (Negative) Urine Bilirubin 1+ H (Negative) Urine Urobilinogen 1.0 (0.2-1.0) mg/dL Leukocyte Esterase Rfl Trace H (Negative) JOLLY/UL Urine RBC 21-50 H (0-2) /hpf Urine WBC 0-3 (0-3) /hpf Ur Squamous Epith Cells Few (Few) /hpf Urine Bacteria 1+ H (None) /hpf Urine Test Negative Imaging Data Radiologist's impression: Impressions Abdomen/Pelvis CT 04/05/25 17:30 IMPRESSION: Hepatomegaly. Patchy bilateral renal enhancement, may reflect pyelonephritis in the appropriate clinical context Critical Care Time Critical Care Time Critical Care Time: No Discharge Plan Discharge Clinical Impression: Pyelonephritis, Vomiting, Substance abuse or dependence, Eloped from emergency department Patient Disposition: Elopement After Seen by Prov Additional Instructions: RETURN IF SYMPTOMS ARE WORSENING , CALL YOUR FAMILY PHYSICIAN FOR APPOINTMENT, TAKE TYLENOL, IBUPROFEN NEEDED FOR ACHES AND PAIN, CONTINUE HOME MEDICATIONS. Patient Language: Wolof Prescriptions: No Action diclofenac sodium 50 mg tablet,delayed release (DR/EC) 50 mg PO Q12H PRN (Reason: pain) Qty: 20 0RF clindamycin HCl 300 mg capsule 300 mg PO Q8H Qty: 20 0RF Follow-up/Referrals: Tung Bermudez MD [Primary Care Provider] -
[2025-04-05] MEDS: ONDANSETRON INJ 4 MG/2 ML VIAL IV PUSH (15:35)
[2025-04-05] MEDS: SODIUM CHLORIDE 0.9% IV 1,000 ML 999 ML IV CONT (15:35)
[2025-04-05 15:46] LABS: Basophils Absolute Auto 0.04 K/mm3 (0.00-0.10); Basophils Percent Auto 0.4 % (0.0-1.0); Eosinophils Absolute Auto 0.04 K/mm3 (0.02-0.50); Eosinophils Percent Auto 0.4 % (1.0-6.0); Hematocrit 36.2 % (35.0-49.0); Hemoglobin 11.5 g/dL (12.0-15.0); Immature Granulocyte Absolute 0.05 K/mm3 (0.00-0.00); Immature Granulocyte Percent A 0.5 % (0.0-0.0); Immature Platelet Fraction Pct 2.3 % (1.0-7.0); Lymphocytes Absolute Auto 2.08 K/mm3 (1.10-4.50); Lymphocytes Percent Auto 18.8 % (18.0-42.0); Mean Corpuscular HGB Conc 31.8 g/dL (32-36); Mean Corpuscular Hemoglobin 27.3 pg (27.0-31.0); Mean Platelet Volume 10.1 fl (9.2-11.8); Monocytes Percent Auto 3.6 % (2.0-11.0); Neutrophils Absolute Auto 8.44 K/mm3 (1.70-7.20); Neutrophils Percent Auto 76.3 % (50.0-70.0); Platelet Count Result 586 K/mm3 (150-420); Red Blood Count 4.21 M/mm3 (4.20-5.40); Red Cell Distribution Width 12.8 % (11.6-14.4); White Blood Count 11.1 K/mm3 (4.8-10.8)
[2025-04-05 15:55] LABS: Alanine Aminotransferase 37 U/L (6-35); Albumin Level 4.1 g/dL (3.5-5.1); Alkaline Phosphatase 222 U/L (38-126); Anion Gap 7 mmol/L (4-12); Aspartate Amino Transferase 33 U/L (14-36); Bilirubin,Total 0.7 mg/dL (0.2-1.3); Blood Urea Nitrogen 11 mg/dL (7-17); Calcium 8.7 mg/dL (8.4-10.2); Carbon Dioxide 28 mmol/L (22-30); Chloride 105 mmol/L (98-107); Estimated CRCL calculation 76 ml/min; Estimated Glomerular Filt Rate > 60; Glucose 102 mg/dL (65-110); Lipase 43 U/L (23-300); Osmolality Calculated 289 mOsm/kg (285-295); Potassium 4.3 mmol/L (3.4-5.0); Sodium 140 mmol/L (137-145); Total Protein 7.7 g/dL (6.3-8.2)
[2025-04-05 15:57] LABS: Add Urine Microscopic? YES; Appearance Urine Clear (Clear); Bilirubin Urine 1+ (Negative); Blood Urine 2+ (Negative); Color Urine Dark Yellow (Yellow); Glucose Urine UA Negative (Negative); Ketones Urine Negative (Negative); Leukocyte Esterase Ur Trace LEU/UL (Negative); Nitrate Urine Negative (Negative); Protein Urine 1+ (Negative); Specific Grav Ur 1.025 (1.010-1.020)
[2025-04-05 16:00] VITALS: BP 142/79; PULSE 105; RESP 20; O2SAT 97
[2025-04-05 16:06] LABS: Bacteria Urine 1+ /hpf; RBC Urine 21-50 /hpf (0-2); Squamous Epithelial Cell Urine Few /hpf (Few); WBC Urine 0-3 /hpf (0-3)
--- NOTE | 2025-04-05 17:01 | PC.NURSE ---
1655 pt to xray via wheelchair
[2025-04-05 17:03] LABS: Pregnancy On Board Control Positive; Urine Pregnancy Test Negative
[2025-04-05 18:30] VITALS: BP 148/87; PULSE 100; RESP 20; O2SAT 94
--- NOTE | 2025-04-05 19:07 | PC.NURSE ---
1851 RN TO ROOM FOR MEDICATIONS ORDERED. PT ELOPED FROM ROOM. PT HAS IV IN PLACE TO RIGHT SHOULDER. NOTE FOUND IN ROOM. SEARCHED FACILITY. PT NOT FOUND. CALL PLACED TO [place] [employer] AT 1856 TO GO TO PT RESIDENCE TO HAVE COME BACK TO ER FOR IV REMOVAL. 1907 OFFICER CHAITANYA ARRIVED AT ER , I CANT FORCE HER TO COME BACK HERE TO HAVE IT REMOVED INFORMED POLICE SHE IS KNOWN DRUG USER. NEED TO CHECK RESIDENCE AND ENCOURAGE HER TO RETURN.
--- NOTE | 2025-04-05 19:17 | PC.NURSE ---
1835 DR BRADEN IN ROOM WITH PT, RECOMMENDED ADMISSION. PT ASKED TO GO HOME FIRST TO GET SOME DOPE SHE IS IV DRUG ABUSER. DR BRADEN EXPLAINED NOT ABLE TO LET HER GO TO GET DOPE. WOULD ORDER ABT AND MEDICATIONS PRIOR TO DISCHARGE. 185 PT FOUND NOT TO BE IN ROOM.
--- NOTE | 2025-04-05 19:29 | PC.NURSE ---
CALLED [place] [employer] , DISPATCHER SAID OFFICER MADE CONTACT WITH PT. STATES IV WAS TAKEN OUT IN THE BATHROOM. NO IV FOUND IN BATHROOM.
== END 2025-04-05 18:52 | disposition left against medical advice (07) ==
PROVIDERS: Emergency Provider Emergency Medicine; PCP Internal Medicine
DX: N12 Tubulo-interstitial nephritis, not specified as acute or chronic (principal); R11.10 Vomiting, unspecified; F19.20 Other psychoactive substance dependence, uncomplicated; E03.9 Hypothyroidism, unspecified; F17.210 Nicotine dependence, cigarettes, uncomplicated
CPT/HCPCS: 36415; 74177; 80053; 81001; 81025; 83690; 85025; 85055; 96361; 96374; 99284; J2405; J7030; Q9967

== ENCOUNTER 2025-04-19 12:17 | Emergency (ER) | payer OTHER, SELFPAY ==
[2025-04-19 12:17] VITALS: BP 131/78; PULSE 75; RESP 16; TEMP 36.6; O2SAT 98
--- OUTSIDE RECORDS SUMMARY | 2025-04-19 12:19 | XMS_ITS | Clinical Summary ---
Author Organization [facility] Address [address] [place] [address] Care Team Providers Care Vapor Coater Name Role Phone Karina Dill MD Primary Care Provider Source Comments [facility],non-owned Affiliates and Associated Physician Practices is amultiple site organization consisting of ambulatory clinics and hospital sitesin [place], [place], [place] and [place]. This disclosure is being madepursuant to the Care Everywhere program and may not contain all information available regarding this patient. Last updated 18.[facility] [place] Allergies No known active allergies Medications * [...] naloxone HCl (NARCAN) 4 MG/0.1ML nasal spray [place] 1 spray into the nose as needed [...] BPP/dopplers Assessment & Plan (11/24/2020 3:43 PM FAMILY COACH): 11/24/20 ultrasound, EFW 2000g (7%), BPP 8/8, FERNANDO 22.3, breech, fundal placenta, normal UA PI, decrease MCA PI Plan: Repeat ultrasound in 2 weeks for growth, twice weekly NST, weekly BPP/dopplers History of 10/01/2019 Rh negative state in antepartum period 9 Assessment & Plan (11/24/2020 3:27 PM FAMILY COACH): Rhogam given 11/24/20 Abnormal Papanicolaou smear of cervix with positive human papilloma virus (HPV) test 03/02/2019 Overview (03/02/2019): 01/2019: NILM repeat co-testing 1 year Assessment & Plan (11/24/2020 3:26 PM FAMILY COACH): Repeat performed 11/24/20 History of pre-eclampsia in prior , currently 02/19/2019 Overview (06/11/2019): G1- Hydrochlorothiazide and Lisinopril following delivery Protein/creatinine ration: 0.07, 06/10 Assessment & Plan (11/24/2020 3:17 PM FAMILY COACH): Baseline labs today. ASA not started given bleeding as well as advanced gestational age making risks likely outweigh benefits. BP normal. Mild intermittent asthma without complication Assessment & Plan (11/24/2020 3:17 PM FAMILY COACH): Albuterol use 1-2/month only. Anxiety 02/19/2019 Assessment & Plan (11/24/2020 3:18 PM FAMILY COACH): Not on medications and states does not need currently. Bipolar 1 disorder 02/19/2019 Overview (02/19/2019): Diagnosed in 2010 Assessment & Plan (11/24/2020 3:18 PM FAMILY COACH): Not on medications and states does not [...] 11/24/20 Assessment & Plan (11/24/2020 3:20 PM FAMILY COACH): Routine labs today, GCT, immunizations, ultrasound, NST. History of delivery 02/19/2019 Overview (06/10/2019): G2- Documented LTCS @ [facility]; placental abruption at 34 weeks, records in media Assessment & Plan (11/24/2020 3:21 PM FAMILY COACH): History of 1 , prefers another if possible. History of placenta abruption 02/19/2019 Overview (02/23/2019): 2012 C/Section-documented LTCS @34wks for placental abruption, tobacco use. Record scan in to [facility]. Assessment & Plan (11/24/2020 3:21 PM FAMILY COACH): Placenta appears normal today. She is having [...] 2018 Assessment & Plan (11/24/2020 3:25 PM FAMILY COACH): Recommended during last to get maternal ECHO which she never completed. Will attempt to set up at next visit. Methamphetamine use disorder, severe, in early r emission 02/19/2019 Assessment & Plan (11/24/2020 3:26 PM FAMILY COACH): Encouraged to discontinue use and we discussed [...] on file Legal Sex Female 9:28 PM FAMILY COACH Gender Identity Not on file Sexual Orientation Not on file Last Filed Vital Signs Vital Sign Reading Time Taken Comments Blood Pressure 120/61 11/24/2020 3:10 PM FAMILY COACH Pulse 87 11/24/2020 11:55 AM FAMILY COACH Temperature 36.7 C (98 F) 11/24/2020 3:10 PM FAMILY COACH Respiratory Rate 18 11/24/2020 3:10 PM FAMILY COACH Oxygen Saturation 98% 11/24/2020 3:10 PM FAMILY COACH Inhaled Oxygen Concentration - - Weight 71.5 kg (157 lb 9.6 oz) 11/24/2020 4:15 P M FAMILY COACH Height 160 cm (5' 3) 11/24/2020 4:15 PM FAMILY COACH Body Mass Index 27.92 11/24/2020 4:15 PM FAMILY COACH Plan of Treatment Health Maintenance Due Date [...] IG LB+HPV APTIMA Routine 11/24/2020 2:08 PM FAMILY COACH WISH patient HEPATITIS C ANTIBODY Routine 11/24/2020 1:32 PM FAMILY COACH WISH patient HIV-1 HIV-2 ANTIBODY + HIV P24 AG PANEL Routine 11/24/2020 1:32 PM FAMILY COACH WISH patient from Last 3 Months or Most Recently Relevant to Health Maintenance Results * PAP IG LB+HPV APTIMA (11/24/2020 2:08 PM FAMILY COACH) Diagnosis Comment 11/29/2020 4:09 PM FAMILY COACH [facility] ([facility]) Comment:NEGATIVE FOR INTRAEP ITHELIAL LESION OR MALIGNANCY. Specimen Adequacy Comment 021 4:09 PM FAMILY COACH [facility] ([facility]) Comment:Satisfactory for rene luation. No endocervical component is identified. Performed by Comment 11/29/2020 4:09 PM FAMILY COACH [facility] ([facility]) Comment:Madhuri Recinos, Cyto technologist (ASCP) Comment . 11/29/2020 4:09 PM FAMILY COACH [facility] ([facility]) Note Comment 11/29/2020 4:09 PM FAMILY COACH [facility] ([facility]) [...] CPT Code Automation Comment 11/29/2020 4:09 PM FAMILY COACH [facility] ([facility]) Comment: This liquid based ThinPrep(R) pap test was screened with the use of an image guided system. Human papillomavirus Aptima Negative Negative 11/29/2020 4:09 PM FAMILY COACH [facility] ([facility]) Comment: This nucleic acid amplification test detects fourteen high-risk HPV types (16,18,31,33,35,39,45,51,52,56,58,59,66,68) without differentiation. Pathology/Cytolo gy PART OF UTERINE CERVIX / Unknown Collection / Unknown 11/24/2020 2:08 PM FAMILY COACH 11/24/2020 3:19 PM FAMILY COACH Narrative [facility] ([facility]) - 11/29/2020 4:09 PM FAMILY COACH Performed at: 01 - [facility] [address], [place] [id number] Tire Molder: Chula Martin MD, Phone: [phone] Performed at: 02 - [facility] [address] [place], [place] [id number] Tire Molder: Chula Martin MD, Phone: [phone] Specimen Comment: No. of containers..01 ThinPrep Vial Abby Gomez MD LAB - PATHOLOGY/CYTOLOGY O RDERABLES Final Result [facility] ([facility]) [address] [place] [address] * HIV-1 HIV-2 ANTIBODY + HIV P24 AG PANEL (11/24/2020 1:32 PM FAMILY COACH) Pathologist [facility] HIV1/2 Ab + P24 Ag Non Reactive Non Reactive 11/24/2020 2:57 PM FAMILY COACH [facility] Blood BLOOD SPECIMEN / Unknown Venipuncture / Unknown 11/24/2020 1:32 PM FAMILY COACH 11/24/2020 2:12 PM FAMILY COACH Narrative [facility] - 11/24/2020 2:57 PM FAMILY COACH No Laboratory evidence of HIV infection. us Abby Gomez MD LAB - CHEMISTRY ORDERABLES Final Result Performing Organization Address City/[facility]/ZIP Co de Phone Number [facility] [address] [place] [address] * HEPATITIS C ANTIBODY (11/24/2020 1:32 PM FAMILY COACH) Pathologist [facility] HCV Antibody Screen Non Reactive Non Reactive 11/24/2020 2:58 PM FAMILY COACH [facility] Blood BLOOD SPECIMEN / Unknown Venipuncture / Unknown 11/24/2020 1:32 PM FAMILY COACH 11/24/2020 2:12 PM FAMILY COACH Narrative [facility] - 11/24/2020 2:58 PM FAMILY COACH Non Reactive - Antibodies to Hepatitis C virus (HCV) were not detected, result does not exclude early acute HCV infection. us Abby Gomez MD LAB - CHEMISTRY ORDERABLES Final Result [facility] [address] [place] [address] from Last 3 Months or Most Recently Relevant to Health Maintenance Insurance MEDICAID [employer] [place] Advance Directives * Full Code (Latest Code Status on File) Date Activated Date Inactivated Comments 11/24/2020 3:23 PM 11/25/2020 12:44 AM * Full Code Date Activated Date Inactivated Comments 09/18/2019 6:46 AM 09/20/2019 4:22 PM Care Teams Vapor Coater Relationship Specialty Start Date End Date Karina Dill MD [address] [id number] PCP - General 12/21/20
--- NOTE | 2025-04-19 12:22 | ED_ITS ---
HPI - Dental/Oral General Chief complaint: Dental/Oral Stated complaint: dental pain Time Seen by Provider: 04/19/25 12:19 Source: patient Mode of arrival: ambulatory Limitations: no limitations History of Present Illness HPI Narrative: Patient is a 34-year-old female with significant past medical history that presents today for a dental abscess. Patient has a dental abscess in the bottom left back shaikh. Is very painful in the area is very swollen and has swollen her drawn as well. She also has posterior cervical adenopathy was well. She says there has been a little bit oppose the skin and she has no allergies to any medications. She does have pain medication at home she has been taking. MD Complaint: tooth pain Location: Tooth # Teeth map: 2 1. tooth abscess Onset (ago): day(s) Duration: constant Severity: severe Severity scale (1-10): 8 Relieving factors: NSAIDs and prescription analgesics Exacerbating factors: chewing and cold Context: history of dental caries Associated symptoms: fever and gum swelling Related Data Allergies Allergy/AdvReac Type Severity Reaction Status Date / Time No Known Allergies Allergy Verified 04/19/25 12:20 Review of Systems 2 Review of Systems: All systems reviewed & are unremarkable except as noted in HPI and below Constitutional: Constitutional: Reports as per HPI Eyes: Eyes: Reports no additional eye complaints ENT: Reports as per HPI Comments: dental abscess back lower molar Cardiovascular: Cardiovascular: Reports no additional cardiovascular complaints Respiratory: Respiratory: Reports no additional respiratory complaints Gastrointestinal: Gastrointestinal: Reports no additional gastrointestinal complaints Musculoskeletal: Musculoskeletal: Reports no additional musculoskeletal complaints Integumentary/Breasts: Skin/Breast: Reports system reviewed and no additional complaints, except as docu Neurologic: Reports system reviewed and no additional complaints, except as documented Psychiatric: Psychiatric: Reports no additional psychiatric complaints Endocrine: Endocrine: Reports no additional endocrine complaints Hematologic/Lymphatic: Hematologic/Lymphatic: Reports no additional hematologic/lymphatic complaints Allergic/Immunologic: Allergic/Immunologic: Reports no additional allergic/immunologic complaints PMFSH Past Medical History Medical History No active medical problems Surgical History Surgical History H/O bladder repair surgery H/O section Social History Social History Smoking status: Current every day smoker Tobacco type: cigarettes Alcohol intake: current Substance use: current Substance use type: opiates Exam 2 Const: General: healthy appearing Nutritional Appearance: well nourished Orientation/consciousness: patient oriented x3 HENMT: Head: normal to inspection Ears: external ears normal F jet/Nose/Sinus: Normal external nose present Face and sinus: normal facial exam Mouth: Yes Normal oral and palatal mucosa present Teeth and gingiva: abnormal tooth and associated gingiva ( dental abscess back lower molar) Eyes: Conjunctivae: conjunctivae normal Pupils: Equal, round and reactive pupils present EOM: EOMs intact bilaterally Neck: Neck: normal visual inspection Chest: Chest palpation & inspection: normal inspection of the chest Resp: Effort & Inspection: normal respiratory effort Auscultation: clear to auscultation bilaterally Cardio: Rate: regular rate Rhythm: regular rhythm GI: GI Palp: Yes Soft to palpation : General: Yes bladder normal to palpation External Female Exam: normal external appearance Speculum Exam - Vagina: normal appearance of the vagina Speculum Exam - Cervix: normal appearance of the cervix Bimanual exam- vagina & uterus: cervical motion tenderness Urinary Catheter: Urinary Catheter: patent and draining Back/Spine/Pelvis: Back: no CVA tenderness Cervical Spine: collar present Skin: General skin exam: normal color Rashes: no rashes Wounds: no wounds Neuro: General: patient oriented x3 Cranial nerves: Yes Nystagmus not present Speech: normal speech Gait exam (Neuro): Normal gait present Extrem: General: normal to inspection Psych: Mental Status: mental status grossly normal Affect: normal affect Attitude: cooperative Course Vital Signs Vital signs: Vital Signs Temperature 97.8 F 04/19/25 12:17 Pulse Rate 75 04/19/25 12:17 Respiratory Rate 16 04/19/25 12:17 Blood Pressure 131/78 04/19/25 12:17 Pulse Oximetry 98 04/19/25 12:17 Oxygen Delivery Room Air 04/19/25 12:17 Temperature 97.8 F 04/19/25 12:17 Pulse Rate 75 04/19/25 12:17 Respiratory Rate 16 04/19/25 12:17 Blood Pressure 131/78 04/19/25 12:17 Pulse Oximetry 98 04/19/25 12:17 Oxygen Delivery Room Air 04/19/25 12:17 MDM - Dental/Oral MDM Narrative Medical decision making narrative: patient's dental infection her back up on right molar area. This is definite dental abscess and has grown quite large and is leaking wound fluid and has swollen her entire right side of her face and jaw. She also has posterior gross overall adenopathy. Differential Diagnosis Differential diagnosis: Likely gingival abscess, dental caries and dental abscess Medical Records Attestation: I reviewed the patient's medical records. Lab Data Attestation: I reviewed the patient's lab results. ABG Data Attestation: I personally reviewed and interpreted this ABG as follows: Discharge Plan Discharge Clinical Impression: Toothache, Dental abscess Patient Disposition: Home Condition: Stable Instructions: Antibiotic Form, Dental Abscess (ED) Patient Language: Iraqi Prescriptions: New clindamycin HCl [Cleocin HCl] 300 mg capsule 300 mg PO TID Qty: 30 0RF clindamycin HCl [Cleocin HCl] 300 mg capsule 300 mg PO TID Qty: 30 0RF No Action diclofenac sodium 50 mg tablet,delayed release (DR/EC) 50 mg PO Q12H PRN (Reason: pain) Qty: 20 0RF clindamycin HCl 300 mg capsule 300 mg PO Q8H Qty: 20 0RF Follow-up/Referrals: Tung Bermudez MD [Primary Care Provider] - Stand Alone Forms: Work/School Release IP
[2025-04-19] MEDS: CLINDAMYCIN HCL 150 MG CAP 300 MG PO (12:34)
[2025-04-19 12:41] VITALS: BP 131/78; PULSE 75; RESP 16; TEMP 36.6; O2SAT 98
== END 2025-04-19 12:41 | disposition home or self-care (01) ==
PROVIDERS: Emergency Provider Family Medicine; PCP Internal Medicine
DX: K04.7 Periapical abscess without sinus (principal); F17.210 Nicotine dependence, cigarettes, uncomplicated
CPT/HCPCS: 99283

== ENCOUNTER 2025-04-29 04:41 | Emergency (ER) | payer OTHER, SELFPAY ==
--- NOTE | ~2025-04-29 | XR_ITS ---
Right Hand Technique: PA, oblique, and lateral views were obtained. Clinical History: Pain Findings: No acute fracture or dislocation is seen. Osseous alignment is anatomic. Joint spaces are p reserved. Soft tissues are unremarkable. Impression: Unremarkable right hand. Reviewed, dictated and finalized at location M. Impression: Unremarkable right hand.
--- OUTSIDE RECORDS SUMMARY | 2025-04-29 04:43 | XMS_ITS | Clinical Summary ---
Author Organization [facility] [employer] Address [address] [place] [place] [address] Care Team Providers Care Consumer Affairs Specialist Name Role Phone Karina Dill MD Primary Care Provider Source Comments [facility],non-owned Affiliates and Associated Physician Practices is amultiple site organization consisting of ambulatory clinics and hospital sitesin [place], [place], [place] and [place]. This disclosure is being madepursuant to the Care Everywhere program and may not contain all information available regarding this patient. Last updated 18.[facility] [employer] Allergies No known active allergies Medications * [...] naloxone HCl (NARCAN) 4 MG/0.1ML nasal spray Garrard 1 spray into the nose as needed [...] BPP/dopplers Assessment & Plan (11/24/2020 3:43 PM ROLL UP GUIDER OPERATOR): 11/24/20 ultrasound, EFW 2000g (7%), BPP 8/8, FERNANDO 22.3, breech, fundal placenta, normal UA PI, decrease MCA PI Plan: Repeat ultrasound in 2 weeks for growth, twice weekly NST, weekly BPP/dopplers History of 10/01/2019 Rh negative state in antepartum period 9 Assessment & Plan (11/24/2020 3:27 PM ROLL UP GUIDER OPERATOR): Rhogam given 11/24/20 Abnormal Papanicolaou smear of cervix with positive human papilloma virus (HPV) test 03/02/2019 Overview (03/02/2019): 01/2019: NILM repeat co-testing 1 year Assessment & Plan (11/24/2020 3:26 PM ROLL UP GUIDER OPERATOR): Repeat performed 11/24/20 History of pre-eclampsia in prior , currently 02/19/2019 Overview (06/11/2019): G1- Hydrochlorothiazide and Lisinopril following delivery Protein/creatinine ration: 0.07, 06/10 Assessment & Plan (11/24/2020 3:17 PM ROLL UP GUIDER OPERATOR): Baseline labs today. ASA not started given bleeding as well as advanced gestational age making risks likely outweigh benefits. BP normal. Mild intermittent asthma without complication Assessment & Plan (11/24/2020 3:17 PM ROLL UP GUIDER OPERATOR): Albuterol use 1-2/month only. Anxiety 02/19/2019 Assessment & Plan (11/24/2020 3:18 PM ROLL UP GUIDER OPERATOR): Not on medications and states does not need currently. Bipolar 1 disorder 02/19/2019 Overview (02/19/2019): Diagnosed in 2010 Assessment & Plan (11/24/2020 3:18 PM ROLL UP GUIDER OPERATOR): Not on medications and states does not [...] 11/24/20 Assessment & Plan (11/24/2020 3:20 PM ROLL UP GUIDER OPERATOR): Routine labs today, GCT, immunizations, ultrasound, NST. History of delivery 02/19/2019 Overview (06/10/2019): G2- Documented LTCS @ [facility]; placental abruption at 34 weeks, records in media Assessment & Plan (11/24/2020 3:21 PM ROLL UP GUIDER OPERATOR): History of 1 , prefers another if possible. History of placenta abruption 02/19/2019 Overview (02/23/2019): 2012 C/Section-documented LTCS @34wks for placental abruption, tobacco use. Record scan in to [facility]. Assessment & Plan (11/24/2020 3:21 PM ROLL UP GUIDER OPERATOR): Placenta appears normal today. She is having [...] 2018 Assessment & Plan (11/24/2020 3:25 PM ROLL UP GUIDER OPERATOR): Recommended during last to get maternal ECHO which she never completed. Will attempt to set up at next visit. Methamphetamine use disorder, severe, in early r emission 02/19/2019 Assessment & Plan (11/24/2020 3:26 PM ROLL UP GUIDER OPERATOR): Encouraged to discontinue use and we discussed [...] on file Legal Sex Female 9:28 PM ROLL UP GUIDER OPERATOR Gender Identity Not on file Sexual Orientation Not on file Last Filed Vital Signs Vital Sign Reading Time Taken Comments Blood Pressure 120/61 11/24/2020 3:10 PM ROLL UP GUIDER OPERATOR Pulse 87 11/24/2020 11:55 AM ROLL UP GUIDER OPERATOR Temperature 36.7 C (98 F) 11/24/2020 3:10 PM ROLL UP GUIDER OPERATOR Respiratory Rate 18 11/24/2020 3:10 PM ROLL UP GUIDER OPERATOR Oxygen Saturation 98% 11/24/2020 3:10 PM ROLL UP GUIDER OPERATOR Inhaled Oxygen Concentration - - Weight 71.5 kg (157 lb 9.6 oz) 11/24/2020 4:15 P M ROLL UP GUIDER OPERATOR Height 160 cm (5' 3) 11/24/2020 4:15 PM ROLL UP GUIDER OPERATOR Body Mass Index 27.92 11/24/2020 4:15 PM ROLL UP GUIDER OPERATOR Plan of Treatment Health Maintenance Due Date [...] IG LB+HPV APTIMA Routine 11/24/2020 2:08 PM ROLL UP GUIDER OPERATOR WISH patient HEPATITIS C ANTIBODY Routine 11/24/2020 1:32 PM ROLL UP GUIDER OPERATOR WISH patient HIV-1 HIV-2 ANTIBODY + HIV P24 AG PANEL Routine 11/24/2020 1:32 PM ROLL UP GUIDER OPERATOR WISH patient from Last 3 Months or Most Recently Relevant to Health Maintenance Results * PAP IG LB+HPV APTIMA (11/24/2020 2:08 PM ROLL UP GUIDER OPERATOR) Diagnosis Comment 11/29/2020 4:09 PM ROLL UP GUIDER OPERATOR [facility] ([facility]) Comment:NEGATIVE FOR INTRAEP ITHELIAL LESION OR MALIGNANCY. Specimen Adequacy Comment 021 4:09 PM ROLL UP GUIDER OPERATOR [facility] ([facility]) Comment:Satisfactory for rene luation. No endocervical component is identified. Performed by Comment 11/29/2020 4:09 PM ROLL UP GUIDER OPERATOR [facility] ([facility]) Comment:Madhuri Recinos, Cyto technologist (ASCP) Comment . 11/29/2020 4:09 PM ROLL UP GUIDER OPERATOR [facility] ([facility]) Note Comment 11/29/2020 4:09 PM ROLL UP GUIDER OPERATOR [facility] ([facility]) Comment: The Pap smear is a screening test designed to aid in the detection of premalignant and malignant conditions of the uterine cervix. It is not a diagnostic procedure and should not be used as the sole means of detecting cervical cancer. Both false-positive and false-negative reports do occur. IGLBP CPT Code Automation Comment 11/29/2020 4:09 PM ROLL UP GUIDER OPERATOR [facility] ([facility]) Comment: This liquid based ThinPrep(R) pap test was screened with the use of an image guided system. Human papillomavirus Aptima Negative Negative 11/29/2020 4:09 PM ROLL UP GUIDER OPERATOR [facility] ([facility]) Comment: This nucleic acid amplification test detects fourteen high-risk HPV types (16,18,31,33,35,39,45,51,52,56,58,59,66,68) without differentiation. Pathology/Cytolo gy PART OF UTERINE CERVIX / Unknown Collection / Unknown 11/24/2020 2:08 PM ROLL UP GUIDER OPERATOR 11/24/2020 3:19 PM ROLL UP GUIDER OPERATOR Narrative [facility] ([facility]) - 11/29/2020 4:09 PM ROLL UP GUIDER OPERATOR Performed at: 01 - [facility] [address], [place] [id number] Driveway Sealer: Chula Martin MD, Phone: [phone] Performed at: 02 - [facility] [address] [place], [place] [id number] Driveway Sealer: Chula Martin MD, Phone: [phone] Specimen Comment: No. of containers..01 ThinPrep Vial Abby Gomez MD LAB - PATHOLOGY/CYTOLOGY O RDERABLES Final Result [facility] ([facility]) [address] [place] [address] * HIV-1 HIV-2 ANTIBODY + HIV P24 AG PANEL (11/24/2020 1:32 PM ROLL UP GUIDER OPERATOR) Pathologist [facility] HIV1/2 Ab + P24 Ag Non Reactive Non Reactive 11/24/2020 2:57 PM ROLL UP GUIDER OPERATOR [facility] Blood BLOOD SPECIMEN / Unknown Venipuncture / Unknown 11/24/2020 1:32 PM ROLL UP GUIDER OPERATOR 11/24/2020 2:12 PM ROLL UP GUIDER OPERATOR Narrative [facility] - 11/24/2020 2:57 PM ROLL UP GUIDER OPERATOR No Laboratory evidence of HIV infection. us Abby Gomez MD LAB - CHEMISTRY ORDERABLES Final Result Performing Organization Address City/[facility]/ZIP Co de Phone Number [facility] [address] [place] [address] * HEPATITIS C ANTIBODY (11/24/2020 1:32 PM ROLL UP GUIDER OPERATOR) Pathologist [facility] HCV Antibody Screen Non Reactive Non Reactive 11/24/2020 2:58 PM ROLL UP GUIDER OPERATOR [facility] Blood BLOOD SPECIMEN / Unknown Venipuncture / Unknown 11/24/2020 1:32 PM ROLL UP GUIDER OPERATOR 11/24/2020 2:12 PM ROLL UP GUIDER OPERATOR Narrative [facility] - 11/24/2020 2:58 PM ROLL UP GUIDER OPERATOR Non Reactive - Antibodies to Hepatitis C virus (HCV) were not detected, result does not exclude early acute HCV infection. us Abby Gomez MD LAB - CHEMISTRY ORDERABLES Final Result [facility] [address] [place] [address] from Last 3 Months or Most Recently Relevant to Health Maintenance Insurance MEDICAID [employer] [place] Advance Directives * Full Code (Latest Code Status on File) Date Activated Date Inactivated Comments 11/24/2020 3:23 PM 11/25/2020 12:44 AM * Full Code Date Activated Date Inactivated Comments 09/18/2019 6:46 AM 09/20/2019 4:22 PM Care Teams Consumer Affairs Specialist Relationship Specialty Start Date End Date Karina Dill MD [address] [id number] PCP - General 12/21/20
[2025-04-29 04:46] VITALS: BP 152/92; PULSE 110; RESP 18; TEMP 36.8; O2SAT 100
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
[2025-04-29] MEDS: KETOROLAC 30 MG/ML VIAL (*BKC) IM (05:16)
== END 2025-04-29 05:40 | disposition home or self-care (01) ==
PROVIDERS: Emergency Provider Internal Medicine Critical Care Medicine; PCP Internal Medicine
DX: S30.810A Abrasion of lower back and pelvis, initial encounter (principal); S60.419A Abrasion of unspecified finger, initial encounter; F17.210 Nicotine dependence, cigarettes, uncomplicated; V13.4XXA Pedal cycle driver injured in collision with car, pick-up truck or van in traffic accident, initial encounter
CPT/HCPCS: 73130; 96372; 99283; J1885

== ENCOUNTER 2025-04-30 08:33 | Emergency (ER) | payer OTHER, SELFPAY ==
--- NOTE | ~2025-04-30 | CT_ITS ---
Non-contrast CT scan of the Abdomen and Pelvis Clinical indication: Right flank pain Technique: 2.5 mm axial scans were obtained through the abdomen and pelvis without intravenous or or al contrast. Dose reduction technique was used on this scan by utilizing automated exposure control a nd iterative reconstruction technique. The dose-length product (DLP) was 282.00 mGy-cm. COMPARISON: 04/05/2025 Findings: Images through the lung bases reveal no abnormalities. There is no evidence of renal or ureteral calculi. The kidneys and the ureters are nondilated. The liver, spleen, pancreas, gallbladder, and adrenals appear normal. There is no aortic aneurysm. There is no evidence of bowel obstruction. Normal appendix. Images through the pelvis were performed. There is no evidence of ascites or lymphadenopathy. Urinary bladder unremarkable. No pelvic mass evident. Impression: No significant abnormality seen. Reviewed, dictated and finalized at [facility]. Impression: No significant abnormality seen.
[2025-04-30 08:36] VITALS: BP 172/83; PULSE 110; RESP 16; TEMP 37; O2SAT 97
--- OUTSIDE RECORDS SUMMARY | 2025-04-30 08:38 | XMS_ITS | Clinical Summary ---
Author Organization [facility] Address [address] [place] [address] Care Team Providers Care Stencil Machine Operator Name Role Phone Karina Dill MD Primary Care Provider Source Comments [facility],non-owned Affiliates and Associated Physician Practices is amultiple site organization consisting of ambulatory clinics and hospital sitesin [place], [place], [place] and [place]. This disclosure is being madepursuant to the Care Everywhere program and may not contain all information available regarding this patient. Last updated 18.[facility] Believe.in Allergies No known active allergies Medications * [...] naloxone HCl (NARCAN) 4 MG/0.1ML nasal spray [place] 1 spray into the nose as needed [...] BPP/dopplers Assessment & Plan (11/24/2020 3:43 PM LABEL STITCHER): 11/24/20 ultrasound, EFW 2000g (7%), BPP 8/8, FERNANDO 22.3, breech, fundal placenta, normal UA PI, decrease MCA PI Plan: Repeat ultrasound in 2 weeks for growth, twice weekly NST, weekly BPP/dopplers History of 10/01/2019 Rh negative state in antepartum period 9 Assessment & Plan (11/24/2020 3:27 PM LABEL STITCHER): Rhogam given 11/24/20 Abnormal Papanicolaou smear of cervix with positive human papilloma virus (HPV) test 03/02/2019 Overview (03/02/2019): 01/2019: NILM repeat co-testing 1 year Assessment & Plan (11/24/2020 3:26 PM LABEL STITCHER): Repeat performed 11/24/20 History of pre-eclampsia in prior , currently 02/19/2019 Overview (06/11/2019): G1- Hydrochlorothiazide and Lisinopril following delivery Protein/creatinine ration: 0.07, 06/10 Assessment & Plan (11/24/2020 3:17 PM LABEL STITCHER): Baseline labs today. ASA not started given bleeding as well as advanced gestational age making risks likely outweigh benefits. BP normal. Mild intermittent asthma without complication Assessment & Plan (11/24/2020 3:17 PM LABEL STITCHER): Albuterol use 1-2/month only. Anxiety 02/19/2019 Assessment & Plan (11/24/2020 3:18 PM LABEL STITCHER): Not on medications and states does not need currently. Bipolar 1 disorder 02/19/2019 Overview (02/19/2019): Diagnosed in 2010 Assessment & Plan (11/24/2020 3:18 PM LABEL STITCHER): Not on medications and states does not [...] 11/24/20 Assessment & Plan (11/24/2020 3:20 PM LABEL STITCHER): Routine labs today, GCT, immunizations, ultrasound, NST. History of delivery 02/19/2019 Overview (06/10/2019): G2- Documented LTCS @ [facility]; placental abruption at 34 weeks, records in media Assessment & Plan (11/24/2020 3:21 PM LABEL STITCHER): History of 1 , prefers another if possible. History of placenta abruption 02/19/2019 Overview (02/23/2019): 2012 C/Section-documented LTCS @34wks for placental abruption, tobacco use. Record scan in to [facility]. Assessment & Plan (11/24/2020 3:21 PM LABEL STITCHER): Placenta appears normal today. She is having [...] 2018 Assessment & Plan (11/24/2020 3:25 PM LABEL STITCHER): Recommended during last to get maternal ECHO which she never completed. Will attempt to set up at next visit. Methamphetamine use disorder, severe, in early r emission 02/19/2019 Assessment & Plan (11/24/2020 3:26 PM LABEL STITCHER): Encouraged to discontinue use and we discussed [...] on file Legal Sex Female 9:28 PM LABEL STITCHER Gender Identity Not on file Sexual Orientation Not on file Last Filed Vital Signs Vital Sign Reading Time Taken Comments Blood Pressure 120/61 11/24/2020 3:10 PM LABEL STITCHER Pulse 87 11/24/2020 11:55 AM LABEL STITCHER Temperature 36.7 C (98 F) 11/24/2020 3:10 PM LABEL STITCHER Respiratory Rate 18 11/24/2020 3:10 PM LABEL STITCHER Oxygen Saturation 98% 11/24/2020 3:10 PM LABEL STITCHER Inhaled Oxygen Concentration - - Weight 71.5 kg (157 lb 9.6 oz) 11/24/2020 4:15 P M LABEL STITCHER Height 160 cm (5' 3) 11/24/2020 4:15 PM LABEL STITCHER Body Mass Index 27.92 11/24/2020 4:15 PM LABEL STITCHER Plan of Treatment Health Maintenance Due Date [...] IG LB+HPV APTIMA Routine 11/24/2020 2:08 PM LABEL STITCHER WISH patient HEPATITIS C ANTIBODY Routine 11/24/2020 1:32 PM LABEL STITCHER WISH patient HIV-1 HIV-2 ANTIBODY + HIV P24 AG PANEL Routine 11/24/2020 1:32 PM LABEL STITCHER WISH patient from Last 3 Months or Most Recently Relevant to Health Maintenance Results * PAP IG LB+HPV APTIMA (11/24/2020 2:08 PM LABEL STITCHER) Diagnosis Comment 11/29/2020 4:09 PM LABEL STITCHER [facility] ([facility]) Comment:NEGATIVE FOR INTRAEP ITHELIAL LESION OR MALIGNANCY. Specimen Adequacy Comment 021 4:09 PM LABEL STITCHER [facility] ([facility]) Comment:Satisfactory for rene luation. No endocervical component is identified. Performed by Comment 11/29/2020 4:09 PM LABEL STITCHER [facility] ([facility]) Comment:Madhuri Recinos, Cyto technologist (ASCP) Comment . 11/29/2020 4:09 PM LABEL STITCHER [facility] ([facility]) Note Comment 11/29/2020 4:09 PM LABEL STITCHER [facility] ([facility]) Comment: The Pap smear is a screening test designed to aid in the detection of premalignant and malignant conditions of the uterine cervix. It is not a diagnostic procedure and should not be used as the sole means of detecting cervical cancer. Both false-positive and false-negative reports do occur. IGLBP CPT Code Automation Comment 11/29/2020 4:09 PM LABEL STITCHER [facility] ([facility]) Comment: This liquid based ThinPrep(R) pap test was screened with the use of an image guided system. Human papillomavirus Aptima Negative Negative 11/29/2020 4:09 PM LABEL STITCHER [facility] ([facility]) Comment: This nucleic acid amplification test detects fourteen high-risk HPV types (16,18,31,33,35,39,45,51,52,56,58,59,66,68) without differentiation. Pathology/Cytolo gy PART OF UTERINE CERVIX / Unknown Collection / Unknown 11/24/2020 2:08 PM LABEL STITCHER 11/24/2020 3:19 PM LABEL STITCHER Narrative [facility] ([facility]) - 11/29/2020 4:09 PM LABEL STITCHER Performed at: 01 - [facility] [address], [place] [id number] Mill Operator Helper: Chula Martin MD, Phone: [phone] Performed at: 02 - [facility] [address] [place], [place] [id number] Mill Operator Helper: Chula Martin MD, Phone: [phone] Specimen Comment: No. of containers..01 ThinPrep Vial Abby Gomez MD LAB - PATHOLOGY/CYTOLOGY O RDERABLES Final Result [facility] ([facility]) [address] [place] [address] * HIV-1 HIV-2 ANTIBODY + HIV P24 AG PANEL (11/24/2020 1:32 PM LABEL STITCHER) Pathologist [facility] [place] HIV1/2 Ab + P24 Ag Non Reactive Non Reactive 11/24/2020 2:57 PM LABEL STITCHER [facility] Blood BLOOD SPECIMEN / Unknown Venipuncture / Unknown 11/24/2020 1:32 PM LABEL STITCHER 11/24/2020 2:12 PM LABEL STITCHER Narrative [facility] - 11/24/2020 2:57 PM LABEL STITCHER No Laboratory evidence of HIV infection. us Abby Gomez MD LAB - CHEMISTRY ORDERABLES Final Result Performing Organization Address City/[facility]/ZIP Co de Phone Number [facility] [address] [place] [address] * HEPATITIS C ANTIBODY (11/24/2020 1:32 PM LABEL STITCHER) Pathologist [facility] HCV Antibody Screen Non Reactive Non Reactive 11/24/2020 2:58 PM LABEL STITCHER [facility] Blood BLOOD SPECIMEN / Unknown Venipuncture / Unknown 11/24/2020 1:32 PM LABEL STITCHER 11/24/2020 2:12 PM LABEL STITCHER Narrative [facility] - 11/24/2020 2:58 PM LABEL STITCHER Non Reactive - Antibodies to Hepatitis C virus (HCV) were not detected, result does not exclude early acute HCV infection. us Abby Gomez MD LAB - CHEMISTRY ORDERABLES Final Result [facility] [address] [place] [address] from Last 3 Months or Most Recently Relevant to Health Maintenance Insurance MEDICAID [employer] [place] Advance Directives * Full Code (Latest Code Status on File) Date Activated Date Inactivated Comments 11/24/2020 3:23 PM 11/25/2020 12:44 AM * Full Code Date Activated Date Inactivated Comments 09/18/2019 6:46 AM 09/20/2019 4:22 PM Care Teams Stencil Machine Operator Relationship Specialty Start Date End Date Karina Dill MD [address] [id number] PCP - General 12/21/20
--- NOTE | 2025-04-30 08:41 | ED_ITS ---
HPI - Nausea/Vomiting/Diarrhea General Chief complaint: Nausea/Vomiting/Diarrhea Stated complaint: n/v Time Seen by Provider: 04/30/25 08:39 Source: patient Mode of arrival: ambulatory Limitations: no limitations History of Present Illness HPI Narrative: Patient is a 34-year-old female with nausea vomiting and some left lower abdominal and right back pain for the past 3 weeks. She came to the ER 3 weeks ago and was supposed to be admitted but she left AMA. It appears she had something of pyelonephritis to be admitted. I will review the chart. Further she said she has been having trouble for 6 months similar symptoms. Also, she is a fentanyl IV or snort user on a regular basis. MD elicited complaint: nausea, vomiting and abdominal pain Pertinent past history: other ( IV drug use and nasal use of fentanyl) Onset (ago): week(s) ( 3) Description of vomiting: watery Description of diarrhea: other ( none) Associated nausea: Yes Associated abdominal pain: Yes Location of pain: LLQ Radiation: other ( right back lower region) Pain consistency: constant Severity: moderate Pain scale (0-10): 3 Quality: sharp Exacerbating factors: none Relieving factors: none Context: other ( patient is having continuous symptoms of nausea and vomiting with abdominal pain for the past 3 weeks; she left AMA last visit (she needed to use fentanyl)) Associated symptoms: nausea/vomiting Treatment prior to arrival: none Related Data Allergies Allergy/AdvReac Type Severity Reaction Status Date / Time No Known Allergies Allergy Verified 04/30/25 08:40 Review of Systems 2 Review of Systems: All systems reviewed & are unremarkable except as noted in HPI and below Constitutional: Constitutional: Reports no additional constitutional complaints Eyes: Eyes: Reports no additional eye complaints ENT: Reports system reviewed and no additional complaints, except as documented Cardiovascular: Cardiovascular: Reports no additional cardiovascular complaints Respiratory: Respiratory: Reports no additional respiratory complaints Gastrointestinal: Gastrointestinal: Reports no additional gastrointestinal complaints Genitourinary: Genitourinary: Reports no additional female genitourinary complaints Musculoskeletal: Musculoskeletal: Reports no additional musculoskeletal complaints Integumentary/Breasts: Skin/Breast: Reports system reviewed and no additional complaints, except as docu Neurologic: Reports system reviewed and no additional complaints, except as documented Psychiatric: Psychiatric: Reports no additional psychiatric complaints Endocrine: Endocrine: Reports no additional endocrine complaints Hematologic/Lymphatic: Hematologic/Lymphatic: Reports no additional hematologic/lymphatic complaints Allergic/Immunologic: Allergic/Immunologic: Reports no additional allergic/immunologic complaints [facility] Past Medical History Medical History No active medical problems Surgical History Surgical History H/O bladder repair surgery H/O section Social History Social History Smoking status: Current every day smoker Tobacco type: cigarettes Alcohol intake: current Substance use: current Substance use type: opiates Exam 2 Const: General: healthy appearing Nutritional Appearance: well nourished Orientation/consciousness: patient oriented x3 HENMT: Head: normal to inspection Ears: external ears normal F jet/Nose/Sinus: Normal external nose present Eyes: Conjunctivae: conjunctivae normal Cornea: corneas normal Pupils: E qual, round and reactive pupils present Neck: Neck: normal visual inspection Chest: Chest palpation & inspection: normal inspection of the chest Resp: Effort & Inspection: normal respiratory effort and not labored A uscultation: clear to auscultation bilaterally and no crackles Cardio: Rate: regular rate Rhythm: regular rhythm Heart sounds: no murmurs GI: Inspection: non-distended GI Palp: Yes Soft to palpation, Yes Tenderness to palpation present (GI) ( left lower quadrant), No Guarding due to palpation present (GI), No Rigid due to palpation, No Hernia present, No Palpable mass present and No Rebound tenderness present Auscultation: normal bowel sounds : General: Yes bladder normal to palpation Back/Spine/Pelvis: Back: no CVA tenderness Other: tender right renal area to palpation Skin: General skin exam: normal color Rashes: no rashes Wounds: no wounds Neuro: General: patient oriented x3 Cranial nerves: Yes Nystagmus not present Speech: normal speech Extrem: General: normal to inspection Psych: Mental Status: mental status grossly normal Affect: normal affect Attitude: cooperative Course Vital Signs Vital signs: Vital Signs Temperature 37.0 C 04/30/25 08:36 Pulse Rate 110 H 04/30/25 08:36 Respiratory Rate 16 04/30/25 08:36 Blood Pressure 172/83 H 04/30/25 08:36 Pulse Oximetry 97 04/30/25 08:36 Oxygen Delivery Room Air 04/30/25 08:36 Temperature 37.0 C 04/30/25 08:36 Pulse Rate 110 H 04/30/25 08:36 Respiratory Rate 16 04/30/25 08:36 Blood Pressure 172/83 H 04/30/25 08:36 Pulse Oximetry 97 04/30/25 08:36 Oxygen Delivery Room Air 04/30/25 08:36 MDM - Nausea/Vomiting/Diarrhea MDM Narrative Medical decision making narrative: patient is a 34-year-old female with nausea and vomiting with abdominal pain for the past 3 weeks. Will proceed with a workup at this time. Lab Data Attestation: I reviewed the patient's lab results. 04/30/25 09:41 04/30/25 09:41 Labs: Lab Results 04/30/25 04/30/25 Range/Units 08:41 09:41 WBC 7.4 (4.8-10.8) K/mm3 RBC 4.15 L (4.20-5.40) M/mm3 Hgb 11.3 L (12.0-15.0) g/dL Hct 36.0 (35.0-49.0) % MCV 86.7 (78.0-102.0) fL MCH 27.2 (27.0-31.0) pg MCHC 31.4 L (32-36) g/dL RDW 14.4 (11.6-14.4) % Plt Count 308 (150-420) K/mm3 MPV 11.2 (9.2-11.8) fl Immature Gran % (Auto) 0.3 H (0.0-0.0) % Neut % (Auto) 58.3 (50.0-70.0) % Lymph % (Auto) 30.4 (18.0-42.0) % [place] % (Auto) 7.2 (2.0-11.0) % Eos % (Auto) 3.4 (1.0-6.0) % Baso % (Auto) 0.4 (0.0-1.0) % Lymph # (Auto) 2.25 (1.10-4.50) K/mm3 [place] # (Auto) 0.53 (0.10-0.90) K/mm3 Eos # (Auto) 0.25 (0.02-0.50) K/mm3 Baso # (Auto) 0.03 (0.00-0.10) K/mm3 Abs Immat Gran (auto) 0.02 H (0.00-0.00) K/mm3 Absolute Neuts (auto) 4.33 (1.70-7.20) K/mm3 Absolute Nucleated RBC 0.00 (0.00-0.00) K/mm3 Nucleated RBC % 0.0 (0-0.0) % Sodium 139 (137-145) mmol/L Potassium 3.4 (3.4-5.0) mmol/L Chloride 106 (98-107) mmol/L Carbon Dioxide 27 (22-30) mmol/L Anion Gap 6 (4-12) mmol/L BUN 14 (7-17) mg/dL Creatinine 0.66 L (0.7-1.0) mg/dL Estim Creat Clear Calc 84 ml/min Estimated GFR > 60 (59 - ) Glucose 87 (65-110) mg/dL Calculated Osmolality 287 (285-295) mOsm/kg Lactic Acid 0.8 (0.4-2.0) mmol/L Calcium 8.6 (8.4-10.2) mg/dL Total Bilirubin 1.0 (0.2-1.3) mg/dL AST 31 (14-36) U/L ALT 12 (6-35) U/L Alkaline Phosphatase 89 (38-126) U/L Total Protein 7.3 (6.3-8.2) g/dL Albumin 4.4 (3.5-5.1) g/dL Lipase 37 (23-300) U/L Urine Color Light yellow (Yellow) Urine Appearance Clear (Clear) Urine pH 6.0 (5.0-8.0) Ur Specific Wallace >= 1.030 H (1.010-1.020) Urine Protein Trace H (Negative) Urine Glucose (UA) Negative (Negative) Urine Ketones Negative (Negative) Ur Blood (Man) Trace-intact H (Negative) Urine Nitrate Positive H (Negative) Urine Bilirubin Negative (Negative) Urine Urobilinogen 0.2 (0.2-1.0) mg/dL Leukocyte Esterase Rfl Trace H (Negative) JOLLY/UL Urine RBC 6-10 H (0-2) /hpf Urine WBC 0-3 (0-3) /hpf Ur Squamous Epith Cells Many H (Few) /hpf Urine Bacteria Trace (None) /hpf Ur Oval Fat Bodies None (None) /lpf Urine Test Negative Imaging Data Attestation: I personally reviewed and interpreted this imaging study as follows: Radiologist's impression: CT scan of the abdomen and pelvis was negative for acute process Discharge Plan Discharge Clinical Impression: GERD without esophagitis UTI (urinary tract infection) Qualifiers: Urinary tract infection type: acute cystitis Hematuria presence: with hematuria Qualified Code(s): N30.01 - Acute cystitis with hematuria Patient Disposition: Home Condition: Stable Instructions: Urinary Tract Infection in Women (DC), GERD (Gastroesophageal Reflux Disease) (DC) Patient Language: Maltese Prescriptions: New pantoprazole [Protonix] 40 mg tablet,delayed release (DR/EC) 40 mg PO DAILY 30 Days Qty: 30 0RF cephalexin 500 mg capsule 500 mg PO BID 7 Days Qty: 14 0RF Follow-up/Referrals: Tung Bermudez MD [Primary Care Provider] - Time of Disposition: 10:46
[2025-04-30 08:52] LABS: Add Urine Microscopic? YES; Appearance Urine Clear (Clear); Bilirubin Urine Negative (Negative); Blood Urine Trace-intact (Negative); Color Urine Light Yellow (Yellow); Glucose Urine UA Negative (Negative); Ketones Urine Negative (Negative); Leukocyte Esterase Ur Trace LEU/UL (Negative); Nitrate Urine Positive (Negative); Protein Urine Trace (Negative); Specific Grav Ur >= 1.030 (1.010-1.020); Urobilinogen Urine 0.2 mg/dL (0.2-1.0)
[2025-04-30 08:53] LABS: Urine Pregnancy Test Negative
[2025-04-30 08:54] LABS: Pregnancy On Board Control Positive
[2025-04-30 09:00] LABS: Bacteria Urine Trace /hpf; Squamous Epithelial Cell Urine Many /hpf (Few); WBC Urine 0-3 /hpf (0-3)
--- OUTSIDE RECORDS SUMMARY | 2025-04-30 09:11 | XMS_ITS | Clinical Summary ---
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 This disclosure is being madepursuant to the Care Everywhere program and may not contain all information available regarding this patient. Last updated 18.[facility] [employer] Allergies No known active allergies Medications * [...] naloxone HCl (NARCAN) 4 MG/0.1ML nasal spray [place] 1 spray into the nose as needed [...] BPP/dopplers Assessment & Plan (11/24/2020 3:43 PM MAINTENANCE SERVICE DISPATCHER): 11/24/20 ultrasound, EFW 2000g (7%), BPP 8/8, FERNANDO 22.3, breech, fundal placenta, normal UA PI, decrease MCA PI Plan: Repeat ultrasound in 2 weeks for growth, twice weekly NST, weekly BPP/dopplers History of 10/01/2019 Rh negative state in antepartum period 9 Assessment & Plan (11/24/2020 3:27 PM MAINTENANCE SERVICE DISPATCHER): Rhogam given 11/24/20 Abnormal Papanicolaou smear of cervix with positive human papilloma virus (HPV) test 03/02/2019 Overview (03/02/2019): 01/2019: NILM repeat co-testing 1 year Assessment & Plan (11/24/2020 3:26 PM MAINTENANCE SERVICE DISPATCHER): Repeat performed 11/24/20 History of pre-eclampsia in prior , currently 02/19/2019 Overview (06/11/2019): G1- Hydrochlorothiazide and Lisinopril following delivery Protein/creatinine ration: 0.07, 06/10 Assessment & Plan (11/24/2020 3:17 PM MAINTENANCE SERVICE DISPATCHER): Baseline labs today. ASA not started given bleeding as well as advanced gestational age making risks likely outweigh benefits. BP normal. Mild intermittent asthma without complication Assessment & Plan (11/24/2020 3:17 PM MAINTENANCE SERVICE DISPATCHER): Albuterol use 1-2/month only. Anxiety 02/19/2019 Assessment & Plan (11/24/2020 3:18 PM MAINTENANCE SERVICE DISPATCHER): Not on medications and states does not need currently. Bipolar 1 disorder 02/19/2019 Overview (02/19/2019): Diagnosed in 2010 Assessment & Plan (11/24/2020 3:18 PM MAINTENANCE SERVICE DISPATCHER): Not on medications and states does not [...] 11/24/20 Assessment & Plan (11/24/2020 3:20 PM MAINTENANCE SERVICE DISPATCHER): Routine labs today, GCT, immunizations, ultrasound, NST. History of delivery 02/19/2019 Overview (06/10/2019): G2- Documented LTCS @ [facility]; placental abruption at 34 weeks, records in media Assessment & Plan (11/24/2020 3:21 PM MAINTENANCE SERVICE DISPATCHER): History of 1 , prefers another if possible. History of placenta abruption 02/19/2019 Overview (02/23/2019): 2012 C/Section-documented LTCS @34wks for placental abruption, tobacco use. Record scan in to [facility]. Assessment & Plan (11/24/2020 3:21 PM MAINTENANCE SERVICE DISPATCHER): Placenta appears normal today. She is having [...] 2018 Assessment & Plan (11/24/2020 3:25 PM MAINTENANCE SERVICE DISPATCHER): Recommended during last to get maternal ECHO which she never completed. Will attempt to set up at next visit. Methamphetamine use disorder, severe, in early r emission 02/19/2019 Assessment & Plan (11/24/2020 3:26 PM MAINTENANCE SERVICE DISPATCHER): Encouraged to discontinue use and we discussed [...] on file Legal Sex Female 9:28 PM MAINTENANCE SERVICE DISPATCHER Gender Identity Not on file Sexual Orientation Not on file Last Filed Vital Signs Vital Sign Reading Time Taken Comments Blood Pressure 120/61 11/24/2020 3:10 PM MAINTENANCE SERVICE DISPATCHER Pulse 87 11/24/2020 11:55 AM MAINTENANCE SERVICE DISPATCHER Temperature 36.7 C (98 F) 11/24/2020 3:10 PM MAINTENANCE SERVICE DISPATCHER Respiratory Rate 18 11/24/2020 3:10 PM MAINTENANCE SERVICE DISPATCHER Oxygen Saturation 98% 11/24/2020 3:10 PM MAINTENANCE SERVICE DISPATCHER Inhaled Oxygen Concentration - - Weight 71.5 kg (157 lb 9.6 oz) 11/24/2020 4:15 P M MAINTENANCE SERVICE DISPATCHER Height 160 cm (5' 3) 11/24/2020 4:15 PM MAINTENANCE SERVICE DISPATCHER Body Mass Index 27.92 11/24/2020 4:15 PM MAINTENANCE SERVICE DISPATCHER Plan of Treatment Health Maintenance Due Date [...] IG LB+HPV APTIMA Routine 11/24/2020 2:08 PM MAINTENANCE SERVICE DISPATCHER WISH patient HEPATITIS C ANTIBODY Routine 11/24/2020 1:32 PM MAINTENANCE SERVICE DISPATCHER WISH patient HIV-1 HIV-2 ANTIBODY + HIV P24 AG PANEL Routine 11/24/2020 1:32 PM MAINTENANCE SERVICE DISPATCHER WISH patient from Last 3 Months or Most Recently Relevant to Health Maintenance Results * PAP IG LB+HPV APTIMA (11/24/2020 2:08 PM MAINTENANCE SERVICE DISPATCHER) Diagnosis Comment 11/29/2020 4:09 PM MAINTENANCE SERVICE DISPATCHER [facility] Comment:NEGATIVE FOR INTRAEP ITHELIAL LESION OR MALIGNANCY. Specimen Adequacy Comment 021 4:09 PM MAINTENANCE SERVICE DISPATCHER [facility]) Comment:Satisfactory for rene luation. No endocervical component is identified. Performed by Comment 11/29/2020 4:09 PM MAINTENANCE SERVICE DISPATCHER [facility]) Comment:Madhuri Recinos, Cyto technologist (ASCP) Comment . 11/29/2020 4:09 PM MAINTENANCE SERVICE DISPATCHER [facility]) Note Comment 11/29/2020 4:09 PM MAINTENANCE SERVICE DISPATCHER [facility]) Comment: The Pap smear is a screening test designed to aid in the detection of premalignant and malignant conditions of the uterine cervix. It is not a diagnostic procedure and should not be used as the sole means of detecting cervical cancer. Both false-positive and false-negative reports do occur. IGLBP CPT Code Automation Comment 11/29/2020 4:09 PM MAINTENANCE SERVICE DISPATCHER [facility]) Comment: This liquid based ThinPrep(R) pap test was screened with the use of an image guided system. Human papillomavirus Aptima Negative Negative 11/29/2020 4:09 PM MAINTENANCE SERVICE DISPATCHER [facility]) Comment: This nucleic acid amplification test detects fourteen high-risk HPV types (16,18,31,33,35,39,45,51,52,56,58,59,66,68) without differentiation. Pathology/Cytolo gy PART OF UTERINE CERVIX / Unknown Collection / Unknown 11/24/2020 2:08 PM MAINTENANCE SERVICE DISPATCHER 11/24/2020 3:19 PM MAINTENANCE SERVICE DISPATCHER Narrative [facility] ([facility]) - 11/29/2020 4:09 PM MAINTENANCE SERVICE DISPATCHER Performed at: 01 - [facility] [address], [place] [id number] Demand Generator Manager: Chula Martin MD, Phone: [phone] Performed at: 02 - [facility] [address] [place], [place] [id number] Demand Generator Manager: Chula Martin MD, Phone: [phone] Specimen Comment: No. of containers..01 ThinPrep Vial Abby Gomez MD LAB - PATHOLOGY/CYTOLOGY O RDERABLES Final Result [facility] ([facility]) [address] [place] [address] * HIV-1 HIV-2 ANTIBODY + HIV P24 AG PANEL (11/24/2020 1:32 PM MAINTENANCE SERVICE DISPATCHER) Pathologist [facility] HIV1/2 Ab + P24 Ag Non Reactive Non Reactive 11/24/2020 2:57 PM MAINTENANCE SERVICE DISPATCHER [facility] Blood BLOOD SPECIMEN / Unknown Venipuncture / Unknown 11/24/2020 1:32 PM MAINTENANCE SERVICE DISPATCHER 11/24/2020 2:12 PM MAINTENANCE SERVICE DISPATCHER Narrative [facility] - 11/24/2020 2:57 PM MAINTENANCE SERVICE DISPATCHER No Laboratory evidence of HIV infection. us Abby Gomez MD LAB - CHEMISTRY ORDERABLES Final Result Performing Organization Address City/[facility]/ZIP Co de Phone Number [facility] [address] [place] [address] * HEPATITIS C ANTIBODY (11/24/2020 1:32 PM MAINTENANCE SERVICE DISPATCHER) Pathologist [facility] HCV Antibody Screen Non Reactive Non Reactive 11/24/2020 2:58 PM MAINTENANCE SERVICE DISPATCHER [facility] Blood BLOOD SPECIMEN / Unknown Venipuncture / Unknown 11/24/2020 1:32 PM MAINTENANCE SERVICE DISPATCHER 11/24/2020 2:12 PM MAINTENANCE SERVICE DISPATCHER Narrative [facility] - 11/24/2020 2:58 PM MAINTENANCE SERVICE DISPATCHER Non Reactive - Antibodies to Hepatitis C virus (HCV) were not detected, result does not exclude early acute HCV infection. us Abby Gomez MD LAB - CHEMISTRY ORDERABLES Final Result [facility] [address] [place] [address] from Last 3 Months or Most Recently Relevant to Health Maintenance Insurance MEDICAID A[employer] [place] Advance Directives * Full Code (Latest Code Status on File) Date Activated Date Inactivated Comments 11/24/2020 3:23 PM 11/25/2020 12:44 AM * Full Code Date Activated Date Inactivated Comments 09/18/2019 6:46 AM 09/20/2019 4:22 PM Care Teams Ice Cream Vault Worker Relationship Specialty Start Date End Date Karina Dill MD [address] [address] PCP - General 12/21/20
[2025-04-30 09:48] LABS: Basophils Absolute Auto 0.03 K/mm3 (0.00-0.10); Basophils Percent Auto 0.4 % (0.0-1.0); Eosinophils Absolute Auto 0.25 K/mm3 (0.02-0.50); Eosinophils Percent Auto 3.4 % (1.0-6.0); Hemoglobin 11.3 g/dL (12.0-15.0); Immature Granulocyte Absolute 0.02 K/mm3 (0.00-0.00); Immature Granulocyte Percent A 0.3 % (0.0-0.0); Lymphocytes Absolute Auto 2.25 K/mm3 (1.10-4.50); Lymphocytes Percent Auto 30.4 % (18.0-42.0); Mean Corpuscular HGB Conc 31.4 g/dL (32-36); Mean Corpuscular Hemoglobin 27.2 pg (27.0-31.0); Mean Corpuscular Volume 86.7 fL (78.0-102.0); Mean Platelet Volume 11.2 fl (9.2-11.8); Monocytes Absolute Auto 0.53 K/mm3 (0.10-0.90); Monocytes Percent Auto 7.2 % (2.0-11.0); Neutrophils Absolute Auto 4.33 K/mm3 (1.70-7.20); Neutrophils Percent Auto 58.3 % (50.0-70.0); Platelet Count Result 308 K/mm3 (150-420); Red Blood Count 4.15 M/mm3 (4.20-5.40); Red Cell Distribution Width 14.4 % (11.6-14.4); White Blood Count 7.4 K/mm3 (4.8-10.8)
[2025-04-30 10:27] LABS: Alanine Aminotransferase 12 U/L (6-35); Albumin Level 4.4 g/dL (3.5-5.1); Alkaline Phosphatase 89 U/L (38-126); Anion Gap 6 mmol/L (4-12); Aspartate Amino Transferase 31 U/L (14-36); Blood Urea Nitrogen 14 mg/dL (7-17); Calcium 8.6 mg/dL (8.4-10.2); Carbon Dioxide 27 mmol/L (22-30); Chloride 106 mmol/L (98-107); Estimated CRCL calculation 84 ml/min; Estimated Glomerular Filt Rate > 60; Glucose 87 mg/dL (65-110); Lipase 37 U/L (23-300); Osmolality Calculated 287 mOsm/kg (285-295); Potassium 3.4 mmol/L (3.4-5.0); Sodium 139 mmol/L (137-145); Total Protein 7.3 g/dL (6.3-8.2)
[2025-04-30 10:28] LABS: Lactic Acid Reflex 0.8 mmol/L (0.4-2.0)
[2025-04-30 10:54] VITALS: BP 155/96; PULSE 67; RESP 18; TEMP 36.6; O2SAT 98
--- NOTE | 2025-05-02 14:19 | PC.NURSE ---
PRELIMINARY BLOOD CULTURE REPORT; NO GROWTH TO DATE.
--- NOTE | 2025-05-06 15:18 | PC.NURSE ---
FINAL BLOOD CULTURE REPORT; NO GROWTH AFTER 5 DAYS.
== END 2025-04-30 10:59 | disposition home or self-care (01) ==
PROVIDERS: Emergency Provider Emergency Medicine; PCP Internal Medicine
DX: K21.9 Gastro-esophageal reflux disease without esophagitis (principal); N30.01 Acute cystitis with hematuria; F17.210 Nicotine dependence, cigarettes, uncomplicated
CPT/HCPCS: 36415; 74176; 80053; 81001; 81025; 83605; 83690; 85025; 87040; 99284

== ENCOUNTER 2025-07-09 20:42 | Emergency (ER) | payer OTHER, SELFPAY ==
[2025-07-09 20:42] VITALS: BP 131/77; PULSE 100; PULSE 97; RESP 16; RESP 20; TEMP 36.7; O2SAT 98
--- NOTE | 2025-07-09 20:43 | PC.NURSE ---
Pt brought in to ED by Liya PENALOZA. Pt states that when police pulled her over she chewed up 10 grams of ICE to avoid police finding it.
--- OUTSIDE RECORDS SUMMARY | 2025-07-09 20:45 | XMS_ITS | Clinical Summary ---
Author Organization [facility] [employer] Address [address] [place] [address] Care Team Providers Care Selling Manager Name Role Phone Karina Dill MD Primary Care Provider Source Comments [facility],non-owned Affiliates and Associated Physician Practices is amultiple site organization consisting of ambulatory clinics and hospital sitesin [place], [place], [place] and [place]. This disclosure is being madepursuant to the Care Everywhere program and may not contain all information available regarding this patient. Last updated 18.[facility] [employer] Allergies No known active allergies Medications * [...] naloxone HCl (NARCAN) 4 MG/0.1ML nasal spray [place] 1 spray into the nose as needed [...] BPP/dopplers Assessment & Plan (11/24/2020 3:43 PM DEHYDRATION UNIT OPERATOR): 11/24/20 ultrasound, EFW 2000g (7%), BPP 8/8, FERNANDO 22.3, breech, fundal placenta, normal UA PI, decrease MCA PI Plan: Repeat ultrasound in 2 weeks for growth, twice weekly NST, weekly BPP/dopplers History of 10/01/2019 Rh negative state in antepartum period 9 Assessment & Plan (11/24/2020 3:27 PM DEHYDRATION UNIT OPERATOR): Rhogam given 11/24/20 Abnormal Papanicolaou smear of cervix with positive human papilloma virus (HPV) test 03/02/2019 Overview (03/02/2019): 01/2019: NILM repeat co-testing 1 year Assessment & Plan (11/24/2020 3:26 PM DEHYDRATION UNIT OPERATOR): Repeat performed 11/24/20 History of pre-eclampsia in prior , currently 02/19/2019 Overview (06/11/2019): G1- Hydrochlorothiazide and Lisinopril following delivery Protein/creatinine ration: 0.07, 06/10 Assessment & Plan (11/24/2020 3:17 PM DEHYDRATION UNIT OPERATOR): Baseline labs today. ASA not started given bleeding as well as advanced gestational age making risks likely outweigh benefits. BP normal. Mild intermittent asthma without complication Assessment & Plan (11/24/2020 3:17 PM DEHYDRATION UNIT OPERATOR): Albuterol use 1-2/month only. Anxiety 02/19/2019 Assessment & Plan (11/24/2020 3:18 PM DEHYDRATION UNIT OPERATOR): Not on medications and states does not need currently. Bipolar 1 disorder 02/19/2019 Overview (02/19/2019): Diagnosed in 2010 Assessment & Plan (11/24/2020 3:18 PM DEHYDRATION UNIT OPERATOR): Not on medications and states does [...] 11/24/20 Assessment & Plan (11/24/2020 3:20 PM DEHYDRATION UNIT OPERATOR): Routine labs today, GCT, immunizations, ultrasound, NST. History of delivery 02/19/2019 Overview (06/10/2019): G2- Documented LTCS @ [facility]; placental abruption at 34 weeks, records in media Assessment & Plan (11/24/2020 3:21 PM DEHYDRATION UNIT OPERATOR): History of 1 , prefers another if possible. History of placenta abruption 02/19/2019 Overview (02/23/2019): 2012 C/Section-documented LTCS @34wks for placental abruption, tobacco use. Record scan in to [facility]. Assessment & Plan (11/24/2020 3:21 PM DEHYDRATION UNIT OPERATOR): Placenta appears normal today. She is [...] 2018 Assessment & Plan (11/24/2020 3:25 PM DEHYDRATION UNIT OPERATOR): Recommended during last to get maternal ECHO which she never completed. Will attempt to set up at next visit. Methamphetamine use disorder, severe, in early r emission 02/19/2019 Assessment & Plan (11/24/2020 3:26 PM DEHYDRATION UNIT OPERATOR): Encouraged to discontinue use and we [...] on file Legal Sex Female 9:28 PM DEHYDRATION UNIT OPERATOR Gender Identity Not on file Sexual Orientation Not on file Last Filed Vital Signs Vital Sign Reading Time Taken Comments Blood Pressure 120/61 11/24/2020 3:10 PM DEHYDRATION UNIT OPERATOR Pulse 87 11/24/2020 11:55 AM DEHYDRATION UNIT OPERATOR Temperature 36.7 C (98 F) 11/24/2020 3:10 PM DEHYDRATION UNIT OPERATOR Respiratory Rate 18 11/24/2020 3:10 PM DEHYDRATION UNIT OPERATOR Oxygen Saturation 98% 11/24/2020 3:10 PM DEHYDRATION UNIT OPERATOR Inhaled Oxygen Concentration - - Weight 71.5 kg (157 lb 9.6 oz) 11/24/2020 4:15 P M DEHYDRATION UNIT OPERATOR Height 160 cm (5' 3) 11/24/2020 4:15 PM DEHYDRATION UNIT OPERATOR Body Mass Index 27.92 11/24/2020 4:15 PM DEHYDRATION UNIT OPERATOR Plan of Treatment Health Maintenance Due Date Last Done Comments HPV VACCINE (1 - 3-dose SCDM series) 2015 COVID-19 VACCINE ( - season) 2024 INFLUENZA VACCINE (#1) 2025 0, 10/01/2019, 02/19/2019, Additional history exists PAP with HPV 11/24/2025 11/24/2020, 02/19/2019 DTAP/TDAP/TD VACCINES (3 - Td or Tdap) 11/24/2030 11/24/2020, 08/17/2019 ZOSTER VACCINE (1 of 2) 2038 HEPATITIS B VACCINE Completed 10/01/2019, 06/10/2019, 02/19/2019 HEPATITIS C SCREENING Completed 12/20/2020 , 12/20/2020, 11/24/2020, Additional history exists HIV SCREENING Completed 12/20/2020, [...] IG LB+HPV APTIMA Routine 11/24/2020 2:08 PM DEHYDRATION UNIT OPERATOR WISH patient HEPATITIS C ANTIBODY Routine 11/24/2020 1:32 PM DEHYDRATION UNIT OPERATOR WISH patient HIV-1 HIV-2 ANTIBODY + HIV P24 AG PANEL Routine 11/24/2020 1:32 PM DEHYDRATION UNIT OPERATOR WISH patient from Last 3 Months or Most Recently Relevant to Health Maintenance Results * PAP IG LB+HPV APTIMA (11/24/2020 2:08 PM DEHYDRATION UNIT OPERATOR) Diagnosis Comment 11/29/2020 4:09 PM DEHYDRATION UNIT OPERATOR [facility] Comment:NEGATIVE FOR INTRAEP ITHELIAL LESION OR MALIGNANCY. Specimen Adequacy Comment 021 4:09 PM DEHYDRATION UNIT OPERATOR [facility]) Comment:Satisfactory for rene luation. No endocervical component is identified. Performed by Comment 11/29/2020 4:09 PM DEHYDRATION UNIT OPERATOR [facility] Comment:Madhuri Recinos, Cyto technologist (ASCP) Comment . 11/29/2020 4:09 PM DEHYDRATION UNIT OPERATOR [facility]) Note Comment 11/29/2020 4:09 PM DEHYDRATION UNIT OPERATOR [facility] Comment: The Pap smear is a screening test designed to aid in the detection of premalignant and malignant conditions of the uterine cervix. It is not a diagnostic procedure and should not be used as the sole means of detecting cervical cancer. Both false-positive and false-negative reports do occur. IGLBP CPT Code Automation Comment 11/29/2020 4:09 PM DEHYDRATION UNIT OPERATOR [facility]) Comment: This liquid based ThinPrep(R) pap test was screened with the use of an image guided system. Human papillomavirus Aptima Negative Negative 11/29/2020 4:09 PM DEHYDRATION UNIT OPERATOR [facility]) Comment: This nucleic acid amplification test detects fourteen high-risk HPV types (16,18,31,33,35,39,45,51,52,56,58,59,66,68) without differentiation. Pathology/Cytolo gy PART OF UTERINE CERVIX / Unknown Collection / Unknown 11/24/2020 2:08 PM DEHYDRATION UNIT OPERATOR 11/24/2020 3:19 PM DEHYDRATION UNIT OPERATOR Narrative [facility]) - 11/29/2020 4:09 PM DEHYDRATION UNIT OPERATOR Performed at: 01 - [facility] [address], [place] [id number] [place] Department Supervisor: Chual Martin MD, Phone: [phone] Performed at: 02 - [facility] [address] [place], [place] [id number] [place] Department Supervisor: Chula Maritn MD, Phone: [phone] Specimen Comment: No. of containers..01 ThinPrep Vial Abby Gomez MD LAB - PATHOLOGY/CYTOLOGY O RDERABLES Final Result [facility]) [address] [place] [address] * HIV-1 HIV-2 ANTIBODY + HIV P24 AG PANEL (11/24/2020 1:32 PM DEHYDRATION UNIT OPERATOR) Pathologist [facility] HIV1/2 Ab + P24 Ag Non Reactive Non Reactive 11/24/2020 2:57 PM DEHYDRATION UNIT OPERATOR [facility] Blood BLOOD SPECIMEN / Unknown Venipuncture / Unknown 11/24/2020 1:32 PM DEHYDRATION UNIT OPERATOR 11/24/2020 2:12 PM DEHYDRATION UNIT OPERATOR Narrative [facility] - 11/24/2020 2:57 PM DEHYDRATION UNIT OPERATOR No Laboratory evidence of HIV infection. us Abby Gomez MD LAB - CHEMISTRY ORDERABLES Final Result Performing Organization Address City/[facility]/ZIP Co de Phone Number [facility] [address] [place] [address] * HEPATITIS C ANTIBODY (11/24/2020 1:32 PM DEHYDRATION UNIT OPERATOR) Pathologist [facility] HCV Antibody Screen Non Reactive Non Reactive 11/24/2020 2:58 PM DEHYDRATION UNIT OPERATOR [facility] Blood BLOOD SPECIMEN / Unknown Venipuncture / Unknown 11/24/2020 1:32 PM DEHYDRATION UNIT OPERATOR 11/24/2020 2:12 PM DEHYDRATION UNIT OPERATOR Narrative [facility] - 11/24/2020 2:58 PM DEHYDRATION UNIT OPERATOR Non Reactive - Antibodies to Hepatitis C virus (HCV) were not detected, result does not exclude early acute HCV infection. us Abby Gomez MD LAB - CHEMISTRY ORDERABLES Final Result [facility] [address] [place] [address] from Last 3 Months or Most Recently Relevant to Health Maintenance Insurance MEDICAID [employer] [place] Advance Directives * Full Code (Latest Code Status on File) Date Activated Date Inactivated Comments 11/24/2020 3:23 PM 11/25/2020 12:44 AM * Full Code Date Activated Date Inactivated Comments 09/18/2019 6:46 AM 09/20/2019 4:22 PM Care Teams Selling Manager Relationship Specialty Start Date End Date Karina Dill MD [address] [phone] PCP - General 12/21/20
--- OUTSIDE RECORDS SUMMARY | 2025-07-09 20:45 | XMS_ITS | Clinical Summary ---
Author Organization [facility] Address [address] [place] [id number] Care Team Providers Care Mold Engraver Name Role Phone None, Provider MD Primary [...] Problem Noted Date Diagnosed Date Breech presentation ([facility] 12/20/2020 delivery delivered ([facility] 12/20/2020 Post-operative complication 12/20/2020 Family History Relation [...] on file Legal Sex Female 2:15 AM EXTENDED INSURANCE CLERK Gender Identity Not on file Sexual Orientation Not on file Last Filed Vital Signs Vital Sign Reading Time Taken Comments Blood Pressure 138/67 12/24/2020 12:26 PM EXTENDED INSURANCE CLERK Pulse 92 12/24/2020 12:26 PM EXTENDED INSURANCE CLERK Temperature 36.2 C (97.2 F) 12/24/2020 8:28 AM EXTENDED INSURANCE CLERK Respiratory Rate 16 12/24/2020 6:10 AM EXTENDED INSURANCE CLERK Oxygen Saturation 93% 12/22/2020 9:17 AM EXTENDED INSURANCE CLERK Inhaled Oxygen Concentration - - Weight 54.4 kg (120 lb) 12/20/2020 12:00 PM EXTENDED INSURANCE CLERK Height 160 cm (5' 3) 12/20/2020 12:00 PM EXTENDED INSURANCE CLERK Body Mass Index 21.26 12/20/2020 12:00 PM EXTENDED INSURANCE CLERK Plan of Treatment Health Maintenance Due Date Last Done Comments Annual Physical 1991 Pneumococcal Vaccine: Pediatrics (0 to 5 Years) and At-Risk Patients (6 to 49 Years) (1 of 2 - PCV) 2007 HPV Vaccines (1 - 3-dose SCDM series) 2015 Cervical Cancer Screening Pap Smear (Age 30 [...] Completed 12/20/2020, 11/26, 11/24/2020, Additional history exists Meningococcal B Vaccine Aged Out No l [...] HEPATITIS C ANTIBODY Routine 12/20/2020 9:11 AM EXTENDED INSURANCE CLERK from Last 3 Months or Most Recently Relevant to Health Maintenance Results * HEPATITIS C ANTIBODY (12/20/2020 9:11 AM EXTENDED INSURANCE CLERK) HEPATITIS C AB NON-REACTI VE NON-REACT BEATRICE 12/20/2020 6:38 PM EXTENDED INSURANCE CLERK [facility] Comment: ANTIBODIES TO HCV NOT DETECTED. DOES NOT EXCLUDE THE POSSIBILITY OF EXPOSURE TO HCV. 12/20/2020 9:11 AM EXTENDED INSURANCE CLERK us Virgil Paredes MD LABORATORY Final Result [facility] [address] [place] [address], [id number] from Last 3 Months or Most Recently Relevant to Health Maintenance Insurance Advance Directives Documents on File Type Date Recorded Patient Pretzel Packer Expl anation Legal Documents 08/02/2022 4:46 PM COMPLETE D BILLING REQUEST FOR [employer] * Full Code (Latest Code Status on File) Date Activated Date Inactivated Comments 12/20/2020 12:21 PM 12/24/2020 5:01 PM * Full Code Date Activated Date Inactivated Comments 12/20/2020 8:59 AM 12/20/2020 11:41 AM Care Teams Mold Engraver Relationship Specialty Start Date End Date None, Provider, PCP - General 12/20/20
--- NOTE | 2025-07-09 20:46 | PC.NURSE ---
Poison Control contacted. Case #[id number]. Poison control recommended Benzos, early, high doses, if pt begins showing symptoms. Will follow up with them in 2 hours.
--- NOTE | 2025-07-09 20:46 | ED.OVERDOSE ---
HPI - Overdose General Chief Complaint: Overdose Stated Complaint: overdose Time Seen by Provider: 07/09/25 20:46 Source: patient and police Mode of arrival: ambulatory Limitations: no limitations History of Present Illness HPI Narrative: patient is a 34-year-old female with questionable intoxication/overdose of methamphetamine/ crystal meth 10 g prior to arrival. Patient was arrested and said she took 10 g at 1 time and normally usually takes 0.5 g to 1 g daily with fentanyl. She took all that at 1 time she says to evade the police. After period of time, police decided to let her be not under arrest and deal with it another day and she confirm to us that she actually did not take it and she was just getting out of police custody care. We called poison Control to review the case. complaint: intentional overdose ( Not for suicide reasoning but to evade police as she was being pulled over for stealing a car) Onset (ago): hour(s) ( 1) Timing confirmed by: other ( police) Intent: other ( patient was not suicidal: She did it to not get arrested) How Overdose Was Discovered: called family/friend ( patient's significant other called ambulance) Context: Intentional Overdose: relationship problems, work problems and drug/ETOH problems Context: Accidental Overdose: wanted to get high Associated symptoms: other ( none) Treatments Prior to Arrival: none Related Data Allergies Allergy/AdvReac Type Severity Reaction Status Date / Time No Known Allergies Allergy Verified 07/09/25 20:56 Review of Systems Review of Systems: All systems reviewed & are unremarkable except as noted in HPI and below Constitutional: Constitutional: Reports no additional constitutional complaints Eyes: Eyes: Reports no additional eye complaints ENT: Reports system reviewed and no additional complaints, except as documented Cardiovascular: Cardiovascular: Reports no additional cardiovascular complaints Respiratory: Respiratory: Reports no additional respiratory complaints Gastrointestinal: Gastrointestinal: Reports no additional gastrointestinal complaints Genitourinary: Genitourinary: Reports no additional female genitourinary complaints Musculoskeletal: Musculoskeletal: Reports no additional musculoskeletal complaints Integumentary/Breasts: Skin/Breast: Reports system reviewed and no additional complaints, except as docu Neurologic: Reports system reviewed and no additional complaints, except as documented Psychiatric: Psychiatric: Reports no additional psychiatric complaints Endocrine: Endocrine: Reports no additional endocrine complaints Hematologic/Lymphatic: Hematologic/Lymphatic: Reports no additional hematologic/lymphatic complaints Allergic/Immunologic: Allergic/Immunologic: Reports no additional allergic/immunologic complaints PMFSH Past Medical History Medical History No active medical problems Surgical History Surgical History H/O bladder repair surgery H/O section Social History Social History Smoking status: Current every day smoker Tobacco type: cigarettes Alcohol intake: current Substance use: current Substance use type: opiates Exam Const: General: healthy appearing Nutritional Appearance: well nourished Orientation/consciousness: patient oriented x3 Limitations: no limitations Other: patient claims she took 10 g of crystal meth less than an hour ago HENMT: Head: normal to inspection Ears: external ears normal Face/Nose/Sinus: Normal external nose present Eyes: Conjunctivae: conjunctivae normal Pupils: Equal, round and reactive pupils present EOM: EOMs intact bilaterally Neck: Neck: normal visual inspection Chest: Chest palpation & inspection: normal inspection of the chest Resp: Effort & Inspection: normal respiratory effort and labored Auscultation: clear to auscultation bilaterally and crackles Cardio: Rate: regular rate Rhythm: regular rhythm Heart sounds: no murmurs GI: Inspection: non-distended GI Palp: Yes Soft to palpation, No Tenderness to palpation present (GI), No Guarding due to palpation present (GI), No Rigid due to palpation, No Hernia present, No Palpable mass present and No Rebound tenderness present Auscultation: normal bowel sounds : General: Yes bladder normal to palpation Urinary Catheter: Urinary Catheter: patent and draining, urine dark and urine red Back/Spine/Pelvis: Back: no CVA tenderness Cervical Spine: collar present Skin: General skin exam: normal color Rashes: no rashes Wounds: no wounds Neuro: General: patient oriented x3 and moves all extremities Cranial nerves: Yes Nystagmus not present Speech: normal speech Gait exam (Neuro): Normal gait present Extrem: General: normal to inspection Psych: Mental Status: mental status grossly normal Affect: normal affect Attitude: cooperative Course Vital Signs Vital signs: Vital Signs Temperature 36.7 C 07/09/25 20:42 Pulse Rate 100 07/09/25 20:42 Respiratory Rate 20 07/09/25 20:42 Blood Pressure 131/77 08/15/25 20:42 Pulse Oximetry 98 07/09/25 20:42 Oxygen Delivery Room Air 07/09/25 20:42 Temperature 36.7 C 07/09/25 20:42 Pulse Rate 97 07/09/25 20:42 Respiratory Rate 16 07/09/25 20:42 Blood Pressure 131/77 07/09/25 20:42 Pulse Oximetry 98 07/09/25 20:42 Oxygen Delivery Room Air 07/09/25 20:42 MDM - Overdose MDM Narrative Medical decision making narrative: Patient is a 34-year-old female who was under arrest but came to the emergency room for saying that she took 6 g of crystal meth last night to evade police. We called poison Control to get parameters. That case has been open and closed as the patient left elopement this evening after police have left the building. patient proceeded to get up and walk out of the emergency room on her own device. She told the nurse specifically that she did not take the 10 g and was telling it just for the police to get out of being arrested this evening. She did take her normal amount this evening. We attempted to get labs before we knew that she did not take the overdose of meth and only took a normal amount. The whole protocol was abandoned at this time due to the fact that she did not take the 10 g of meth. Patient proceeded to go elopement on her own when nobody was looking in that direction briefly. Patient was not a danger to herself or others and she had decision-making capacity to decide to go by elopement. she also said she had a recent pneumonia and lost the prescription. We told her at the end of the encounter we will give her an antibiotic but she eloped before the encounter could be done. Lab Data Attestation: I reviewed the patient's lab results. Lab results narrative: social services technician unable to get labs and patient left by elopement before we could get a chance to try a different nurse ECG Data EKG #1: ECG completion date: 07/09/25 ECG completion time: 23:17 EKG Interpretation: normal rate, sinus rhythm, PVCs, PACs, no ST changes, normal QRS and NL axis Discharge Plan Discharge Clinical Impression: Methamphetamine use Patient Disposition: Elopement After Seen by Prov Patient Language: Georgian Prescriptions: No Action pantoprazole [Protonix] 40 mg tablet,delayed release (DR/EC) 40 mg PO DAILY 30 Days Qty: 30 0RF cephalexin 500 mg capsule 500 mg PO BID 7 Days Qty: 14 0RF Follow-up/Referrals: Wilber Hernández MD [Physician] - Time of Disposition: 22:03
[2025-07-09 20:49] VITALS: PULSE 82; RESP 22; O2SAT 100
--- NOTE | 2025-07-09 20:50 | ECG_ITS ---
Test Date: 2025-07-09 20:53:50 Measurements Intervals [place] Rate: 73 P: 76 [place]: 151 QRS: 81 QRSD: 81 T: 75 QT: 385 QTc: 426 Interpretive Statements SINUS RHYTHM NORMAL ECG Compared to ECG 03/14/2025 09:27:38 HEART RATE HAS DECREASED Electronically Signed On 07-10-2025 07:26:55 CDT by Matt Plaza D.O.
--- NOTE | 2025-07-09 20:55 | PC.NURSE ---
Side rails of stretcher up and padded incase of seizure.
[2025-07-09 21:02] VITALS: BP 130/61; PULSE 77; RESP 22; O2SAT 100
--- NOTE | 2025-07-09 21:05 | PC.NURSE ---
Police state that they are leaving and pt is free to go after her discharge.
--- NOTE | 2025-07-09 21:20 | PC.NURSE ---
After police left, pt confided in this RN that she had not, in fact, chewed up 10 grams of meth. She reports that she lied to the police to avoid going to half-way. Pt states that she MAY have chewed 1 - 2 grams vs the 10 she initially reported. Pt states that she is a daily meth and fentanyl user. Pt denies any symptoms of overdose.
--- OUTSIDE RECORDS SUMMARY | 2025-07-09 21:36 | XMS_ITS | Clinical Summary ---
Author Organization [facility] Address [address] [place] [id number] Care Team Providers Care Elevator Constructor Name Role Phone None, Provider MD Primary [...] Problem Noted Date Diagnosed Date Breech presentation ([facility]) 12/20/2020 delivery delivered ([facility]) 12/20/2020 Post-operative complication 12/20/2020 Family [...] on file Legal Sex Female 2:15 AM PEDIATRIC INTENSIVE PHYSICIAN Gender Identity Not on file Sexual Orientation Not on file Last Filed Vital Signs Vital Sign Reading Time Taken Comments Blood Pressure 138/67 12/24/2020 12:26 PM PEDIATRIC INTENSIVE PHYSICIAN Pulse 92 12/24/2020 12:26 PM PEDIATRIC INTENSIVE PHYSICIAN Temperature 36.2 C (97.2 F) 12/24/2020 8:28 AM PEDIATRIC INTENSIVE PHYSICIAN Respiratory Rate 16 12/24/2020 6:10 AM PEDIATRIC INTENSIVE PHYSICIAN Oxygen Saturation 93% 12/22/2020 9:17 AM PEDIATRIC INTENSIVE PHYSICIAN Inhaled Oxygen Concentration - - Weight 54.4 kg (120 lb) 12/20/2020 12:00 PM PEDIATRIC INTENSIVE PHYSICIAN Height 160 cm (5' 3) 12/20/2020 12:00 PM PEDIATRIC INTENSIVE PHYSICIAN Body Mass Index 21.26 12/20/2020 12:00 PM PEDIATRIC INTENSIVE PHYSICIAN Plan of Treatment Health Maintenance Due Date [...] HEPATITIS C ANTIBODY Routine 12/20/2020 9:11 AM PEDIATRIC INTENSIVE PHYSICIAN from Last 3 Months or Most Recently Relevant to Health Maintenance Results * HEPATITIS C ANTIBODY (12/20/2020 9:11 AM PEDIATRIC INTENSIVE PHYSICIAN) HEPATITIS C AB NON-REACTI VE NON-REACT BEATRICE 12/20/2020 6:38 PM PEDIATRIC INTENSIVE PHYSICIAN [facility] Comment: ANTIBODIES TO HCV NOT DETECTED. DOES NOT EXCLUDE THE POSSIBILITY OF EXPOSURE TO HCV. 12/20/2020 9:11 AM PEDIATRIC INTENSIVE PHYSICIAN us Virgil Paredes MD LABORATORY Final Result [facility] [address] [place] [address], [id number] from Last 3 Months or Most Recently Relevant to Health Maintenance Insurance Advance Directives Documents on File Type Date Recorded Patient Install And Repair Technician Expl anation Legal Documents 08/02/2022 4:46 PM COMPLETE D BILLING REQUEST FOR [employer] * Full Code (Latest Code Status on File) Date Activated Date Inactivated Comments 12/20/2020 12:21 PM 12/24/2020 5:01 PM * Full Code Date Activated Date Inactivated Comments 12/20/2020 8:59 AM 12/20/2020 11:41 AM Care Teams Elevator Constructor Relationship Specialty Start Date End Date None, Provider, PCP - General 12/20/20
--- OUTSIDE RECORDS SUMMARY | 2025-07-09 21:36 | XMS_ITS | Clinical Summary ---
Author Organization [facility] Address [address] [place] [address] Care Team Providers Care Lumber Press Operator Name Role Phone Karina Dill MD Primary Care Provider Source Comments [facility],non-owned Affiliates and Associated Physician Practices is amultiple site organization consisting of ambulatory clinics and hospital sitesin [place], [place], [place] and [place]. This disclosure is being madepursuant to the Care Everywhere program and may not contain all information available regarding this patient. Last updated 18.[facility] Allergies No known active allergies Medications * [...] naloxone HCl (NARCAN) 4 MG/0.1ML nasal spray [employer] [place] 1 spray into the nose as needed [...] BPP/dopplers Assessment & Plan (11/24/2020 3:43 PM FUNERAL DRIVER): 11/24/20 ultrasound, EFW 2000g (7%), BPP 8/8, FERNANDO 22.3, breech, fundal placenta, normal UA PI, decrease MCA PI Plan: Repeat ultrasound in 2 weeks for growth, twice weekly NST, weekly BPP/dopplers History of 10/01/2019 Rh negative state in antepartum period 9 Assessment & Plan (11/24/2020 3:27 PM FUNERAL DRIVER): Rhogam given 11/24/20 Abnormal Papanicolaou smear of cervix with positive human papilloma virus (HPV) test 03/02/2019 Overview (03/02/2019): 01/2019: NILM repeat co-testing 1 year Assessment & Plan (11/24/2020 3:26 PM FUNERAL DRIVER): Repeat performed 11/24/20 History of pre-eclampsia in prior , currently 02/19/2019 Overview (06/11/2019): G1- Hydrochlorothiazide and Lisinopril following delivery Protein/creatinine ration: 0.07, 06/10 Assessment & Plan (11/24/2020 3:17 PM FUNERAL DRIVER): Baseline labs today. ASA not started given bleeding as well as advanced gestational age making risks likely outweigh benefits. BP normal. Mild intermittent asthma without complication Assessment & Plan (11/24/2020 3:17 PM FUNERAL DRIVER): Albuterol use 1-2/month only. Anxiety 02/19/2019 Assessment & Plan (11/24/2020 3:18 PM FUNERAL DRIVER): Not on medications and states does not need currently. Bipolar 1 disorder 02/19/2019 Overview (02/19/2019): Diagnosed in 2010 Assessment & Plan (11/24/2020 3:18 PM FUNERAL DRIVER): Not on medications and states does not [...] 11/24/20 Assessment & Plan (11/24/2020 3:20 PM FUNERAL DRIVER): Routine labs today, GCT, immunizations, ultrasound, NST. History of delivery 02/19/2019 Overview (06/10/2019): G2- Documented LTCS @ [facility]; placental abruption at 34 weeks, records in media Assessment & Plan (11/24/2020 3:21 PM FUNERAL DRIVER): History of 1 , prefers another if possible. History of placenta abruption 02/19/2019 Overview (02/23/2019): 2012 C/Section-documented LTCS @34wks for placental abruption, tobacco use. Record scan in to [facility]. Assessment & Plan (11/24/2020 3:21 PM FUNERAL DRIVER): Placenta appears normal today. She is having [...] 2018 Assessment & Plan (11/24/2020 3:25 PM FUNERAL DRIVER): Recommended during last to get maternal ECHO which she never completed. Will attempt to set up at next visit. Methamphetamine use disorder, severe, in early r emission 02/19/2019 Assessment & Plan (11/24/2020 3:26 PM FUNERAL DRIVER): Encouraged to discontinue use and we discussed [...] on file Legal Sex Female 9:28 PM FUNERAL DRIVER Gender Identity Not on file Sexual Orientation Not on file Last Filed Vital Signs Vital Sign Reading Time Taken Comments Blood Pressure 120/61 11/24/2020 3:10 PM FUNERAL DRIVER Pulse 87 11/24/2020 11:55 AM FUNERAL DRIVER Temperature 36.7 C (98 F) 11/24/2020 3:10 PM FUNERAL DRIVER Respiratory Rate 18 11/24/2020 3:10 PM FUNERAL DRIVER Oxygen Saturation 98% 11/24/2020 3:10 PM FUNERAL DRIVER Inhaled Oxygen Concentration - - Weight 71.5 kg (157 lb 9.6 oz) 11/24/2020 4:15 P M FUNERAL DRIVER Height 160 cm (5' 3) 11/24/2020 4:15 PM FUNERAL DRIVER Body Mass Index 27.92 11/24/2020 4:15 PM FUNERAL DRIVER Plan of Treatment Health Maintenance Due Date [...] IG LB+HPV APTIMA Routine 11/24/2020 2:08 PM FUNERAL DRIVER WISH patient HEPATITIS C ANTIBODY Routine 11/24/2020 1:32 PM FUNERAL DRIVER WISH patient HIV-1 HIV-2 ANTIBODY + HIV P24 AG PANEL Routine 11/24/2020 1:32 PM FUNERAL DRIVER WISH patient from Last 3 Months or Most Recently Relevant to Health Maintenance Results * PAP IG LB+HPV APTIMA (11/24/2020 2:08 PM FUNERAL DRIVER) Diagnosis Comment 11/29/2020 4:09 PM FUNERAL DRIVER [facility] Comment:NEGATIVE FOR INTRAEP ITHELIAL LESION OR MALIGNANCY. Specimen Adequacy Comment 021 4:09 PM FUNERAL DRIVER [facility] Comment:Satisfactory for rene luation. No endocervical component is identified. Performed by Comment 11/29/2020 4:09 PM FUNERAL DRIVER [facility] Comment:Madhuri Recinos, Cyto technologist (ASCP) Comment . 11/29/2020 4:09 PM FUNERAL DRIVER [facility] Note Comment 11/29/2020 4:09 PM FUNERAL DRIVER [facility] Comment: The Pap smear is a screening test designed to aid in the detection of premalignant and malignant conditions of the uterine cervix. It is not a diagnostic procedure and should not be used as the sole means of detecting cervical cancer. Both false-positive and false-negative reports do occur. IGLBP CPT Code Automation Comment 11/29/2020 4:09 PM FUNERAL DRIVER [facility] Comment: This liquid based ThinPrep(R) pap test was screened with the use of an image guided system. Human papillomavirus Aptima Negative Negative 11/29/2020 4:09 PM FUNERAL DRIVER [facility] Comment: This nucleic acid amplification test detects fourteen high-risk HPV types (16,18,31,33,35,39,45,51,52,56,58,59,66,68) without differentiation. Pathology/Cytolo gy PART OF UTERINE CERVIX / Unknown Collection / Unknown 11/24/2020 2:08 PM FUNERAL DRIVER 11/24/2020 3:19 PM FUNERAL DRIVER Narrative [facility]) - 11/29/2020 4:09 PM FUNERAL DRIVER Performed at: 01 - [facility] [address], [place] [id number] Quill Cleaning Machine Operator: Chula Martin MD, Phone: [phone] Performed at: 02 - [facility] [address] [place], [place] [id number] Quill Cleaning Machine Operator: Chula Martin MD, Phone: [phone] Specimen Comment: No. of containers..01 ThinPrep Vial Abby Gomez MD LAB - PATHOLOGY/CYTOLOGY O RDERABLES Final Result [facility]) [address] [place] [address] * HIV-1 HIV-2 ANTIBODY + HIV P24 AG PANEL (11/24/2020 1:32 PM FUNERAL DRIVER) Pathologist [facility] HIV1/2 Ab + P24 Ag Non Reactive Non Reactive 11/24/2020 2:57 PM FUNERAL DRIVER [facility] Blood BLOOD SPECIMEN / Unknown Venipuncture / Unknown 11/24/2020 1:32 PM FUNERAL DRIVER 11/24/2020 2:12 PM FUNERAL DRIVER Narrative [facility] - 11/24/2020 2:57 PM FUNERAL DRIVER No Laboratory evidence of HIV infection. us Abby Gomez MD LAB - CHEMISTRY ORDERABLES Final Result Performing Organization Address City/[facility]/ZIP Co de Phone Number [facility] [address] [place] [address] * HEPATITIS C ANTIBODY (11/24/2020 1:32 PM FUNERAL DRIVER) Pathologist [facility] HCV Antibody Screen Non Reactive Non Reactive 11/24/2020 2:58 PM FUNERAL DRIVER [facility] Blood BLOOD SPECIMEN / Unknown Venipuncture / Unknown 11/24/2020 1:32 PM FUNERAL DRIVER 11/24/2020 2:12 PM FUNERAL DRIVER Narrative [facility] - 11/24/2020 2:58 PM FUNERAL DRIVER Non Reactive - Antibodies to Hepatitis C virus (HCV) were not detected, result does not exclude early acute HCV infection. us Abby Gomez MD LAB - CHEMISTRY ORDERABLES Final Result [facility] [address] [place] [address] from Last 3 Months or Most Recently Relevant to Health Maintenance Insurance MEDICAID [employer] [place] Advance Directives * Full Code (Latest Code Status on File) Date Activated Date Inactivated Comments 11/24/2020 3:23 PM 11/25/2020 12:44 AM * Full Code Date Activated Date Inactivated Comments 09/18/2019 6:46 AM 09/20/2019 4:22 PM Care Teams Lumber Press Operator Relationship Specialty Start Date End Date Karina Dill MD [address] [phone] PCP - General 12/21/20
--- NOTE | 2025-07-09 21:40 | PC.NURSE ---
watch technician unable to draw labs on pt due to condition of pt's veins.
[2025-07-09 21:42] VITALS: BP 114/68; PULSE 88; RESP 25
[2025-07-09 21:46] VITALS: BP 118/75; PULSE 82; RESP 17
--- NOTE | 2025-07-09 21:55 | PC.NURSE ---
Pt eloped from ED while this RN was in room with another pt.
--- NOTE | 2025-07-09 22:54 | PC.NURSE ---
Poison Control notified that pt lied about meth consumption and eloped from ED.
== END 2025-07-09 21:55 | disposition left against medical advice (07) ==
PROVIDERS: Emergency Provider Emergency Medicine; PCP Nurse Practitioner Family
DX: F15.90 Other stimulant use, unspecified, uncomplicated (principal); F17.210 Nicotine dependence, cigarettes, uncomplicated
CPT/HCPCS: 93005; 99283

== ENCOUNTER 2025-08-22 07:29 | Emergency (ER) | payer OTHER, SELFPAY ==
[2025-08-22 07:30] VITALS: BP 154/94; PULSE 115; RESP 18; TEMP 36.6; O2SAT 100
--- NOTE | 2025-08-22 07:35 | ED_ITS ---
HPI - Medical Clearance General Chief complaint: Medical Clearance Stated complaint: swallowed drugs Time Seen by Provider: 08/22/25 07:34 Source: patient and police Mode of arrival: other (police) Limitations: no limitations History of Present Illness HPI Narrative: 34 years old white female claiming taken 10-15 capsule of fentanyl and unknown am a of math capsules immediately before getting caught by the police within 30 minutes prior to arrival to the emergency room. Currently patient is asymptomatic. Related Information Allergies Allergy/AdvReac Type Severity Reaction Status Date / Time No Known Allergies Allergy Verified 07/09/25 20:56 Review of Systems 2 Review of Systems: All systems reviewed & are unremarkable except as noted in HPI and below PMFSH Past Medical History Medical History No active medical problems Surgical History Surgical History H/O bladder repair surgery H/O section Social History Social History Smoking status: Current every day smoker Tobacco type: cigarettes Alcohol intake: current Substance use: current Substance use type: methamphetamine Exam 2 Narrative: General appearance: Well-developed, well-nourished Skin: Normal color Head: Normocephalic, nontraumatic Eyes: Clear conjunctiva ENT: Oropharynx normal, ears normal, nose normal Neck: Supple, nontender Chest and respiratory: Airway patent, no respiratory distress, no accessory muscle use Heart: Regular rate/rhythm Abdomen: Soft, nontender, no organomegaly, quiet bowel sounds Vascular: Normal peripheral pulses, normal capillary refill. Musculoskeletal: Normal range of motion, nontender back Neurologic: Alert and oriented ?3, RESEARCH NURSE PRACTITIONER is normal as tested, no gross motor deficit Course Consultations Consultation #1: DR MCCOY, ICU, [facility] Date: 08/22/25 Time: 08:05 Vital Signs Vital signs: Vital Signs Temperature 36.6 C 08/22/25 07:30 Pulse Rate 115 H 08/22/25 07:30 Respiratory Rate 18 08/22/25 07:30 Blood Pressure 154/94 H 08/22/25 07:30 Pulse Oximetry 100 08/22/25 07:30 Oxygen Delivery Room Air 08/22/25 07:30 Temperature 36.6 C 08/22/25 07:30 Pulse Rate 115 H 08/22/25 07:30 Respiratory Rate 18 08/22/25 07:30 Blood Pressure 154/94 H 08/22/25 07:30 Pulse Oximetry 100 08/22/25 07:30 Oxygen Delivery Room Air 08/22/25 07:30 MDM - Medical Clearance MDM Narrative Medical decision making narrative: Differential diagnosis: Drug overdose, versus patient trying to avoid going to the [place] [facility] by lying about how much she talk. Poison control Recommends ICU placement for 24 hours observation Differential Diagnosis Differential diagnosis: Likely other ( as above) Lab Data 08/22/25 07:54 08/22/25 07:54 Labs: Lab Results 08/22/25 Range/Units 07:54 WBC 7.6 (4.8-10.8) K/mm3 RBC 4.34 (4.20-5.40) M/mm3 Hgb 12.2 (12.0-15.0) g/dL Hct 39.2 (35.0-49.0) % MCV 90.3 (78.0-102.0) fL MCH 28.1 (27.0-31.0) pg MCHC 31.1 L (32-36) g/dL RDW 13.6 (11.6-14.4) % Plt Count 141 L (150-420) K/mm3 MPV 11.4 (9.2-11.8) fl Immature Gran % (Auto) 0.1 H (0.0-0.0) % Neut % (Auto) 44.5 L (50.0-70.0) % Lymph % (Auto) 43.4 H (18.0-42.0) % Mcculloch % (Auto) 6.8 (2.0-11.0) % Eos % (Auto) 4.5 (1.0-6.0) % Baso % (Auto) 0.7 (0.0-1.0) % Lymph # (Auto) 3.31 (1.10-4.50) K/mm3 [place]ulloch # (Auto) 0.52 (0.10-0.90) K/mm3 Eos # (Auto) 0.34 (0.02-0.50) K/mm3 Baso # (Auto) 0.05 (0.00-0.10) K/mm3 Abs Immat Gran (auto) 0.01 H (0.00-0.00) K/mm3 Absolute Neuts (auto) 3.39 (1.70-7.20) K/mm3 Absolute Nucleated RBC 0.00 (0.00-0.00) K/mm3 Nucleated RBC % 0.0 (0-0.0) % PT Pending INR Pending APTT Pending Sodium Pending Potassium Pending Chloride Pending Carbon Dioxide Pending Anion Gap Pending BUN Pending Creatinine Pending Estim Creat Clear Calc Pending Estimated GFR Pending Glucose Pending Calculated Osmolality Pending Calcium Pending Total Bilirubin Pending AST Pending ALT Pending Alkaline Phosphatase Pending Total Protein Pending Albumin Pending Salicylates Pending Urine Opiates Screen Pending Urine Methadone Screen Pending Acetaminophen Pending Ur Barbiturates Screen Pending Ur Phencyclidine Scrn Pending Ur Amphetamine Screen Pending U Benzodiazepines Scrn Pending Urine Cocaine Screen Pending U Cannabinoids Screen Pending Ethyl Alcohol Pending Critical Care Time Critical Care Time Critical Care Time: No Discharge Plan Discharge Clinical Impression: Acute drug overdose Patient Disposition: Acute Care Hospital Condition: Guarded Prognosis Instructions: Medical Clearance for Psychiatric Care (ED) Patient Language: Kosovan Prescriptions: No Action pantoprazole [Protonix] 40 mg tablet,delayed release (DR/EC) 40 mg PO DAILY 30 Days Qty: 30 0RF cephalexin 500 mg capsule 500 mg PO BID 7 Days Qty: 14 0RF Follow-up/Referrals: Wilber Hernández MD [Physician, Internal Medicine]
--- NOTE | 2025-08-22 07:35 | ECG_ITS ---
Test Date: 2025-08-22 08:06:57 Measurements Intervals [place] Rate: 94 P: 76 NV: 143 QRS: 77 QRSD: 86 T: 72 QT: 365 QTc: 457 Interpretive Statements SINUS RHYTHM POSSIBLE LEFT ATRIAL ENLARGEMENT [-0.1mV P-WAVE IN V1/V2] Compared to ECG 07/09/2025 20:53:50 No significant changes Electronically Signed On 08-22-2025 10:18:45 CDT by Barbara Coon M.D.
--- NOTE | 2025-08-22 07:48 | PC.NURSE ---
Poison control contacted. They suggest immediate transfer to ICU for 24 hour observation, along with labs and ekg. ERP given list of suggested labs and they are to be ordered.
[2025-08-22 08:02] LABS: Hematocrit 39.2 % (35.0-49.0); Hemoglobin 12.2 g/dL (12.0-15.0); Immature Granulocyte Percent A 0.1 % (0.0-0.0); Lymphocytes Absolute Auto 3.31 K/mm3 (1.10-4.50); Mean Corpuscular HGB Conc 31.1 g/dL (32-36); Mean Corpuscular Hemoglobin 28.1 pg (27.0-31.0); Mean Corpuscular Volume 90.3 fL (78.0-102.0); Nucleated Red Blood Cells Absolute Auto 0.00 K/mm3 (0.00-0.00); Nucleated Red Blood Cells Perc 0.0 % (0-0.0); Platelet Count Result 141 K/mm3 (150-420); Red Blood Count 4.34 M/mm3 (4.20-5.40); White Blood Count 7.6 K/mm3 (4.8-10.8)
[2025-08-22 08:15] VITALS: BP 140/88; PULSE 104; RESP 18; O2SAT 99
[2025-08-22 08:16] LABS: Acetaminophen < 10 ug/mL (10-30); INR 1.0; Partial Thromboplastin Time 28.5 Sec (23.9-30.70); Prothrombin Time 10.8 Seconds (9.50-12.1); Salicylate < 1.0 mg/dL (2-20)
[2025-08-22 08:18] LABS: Chloride 105 mmol/L (98-107); Potassium 3.7 mmol/L (3.4-5.0); Sodium 141 mmol/L (137-145)
[2025-08-22 08:20] LABS: Anion Gap 10 mmol/L (4-12); Bilirubin,Total < 0.1 mg/dL (0.2-1.3); Blood Urea Nitrogen 8 mg/dL (7-17); Calcium 9.2 mg/dL (8.4-10.2); Carbon Dioxide 26 mmol/L (22-30); Estimated CRCL calculation 91 ml/min; Estimated Glomerular Filt Rate > 60; Glucose 109 mg/dL (65-110); Osmolality Calculated 291 mOsm/kg (285-295)
[2025-08-22 08:21] LABS: Alanine Aminotransferase 203 U/L (6-35); Albumin Level 4.3 g/dL (3.5-5.1); Alkaline Phosphatase 135 U/L (38-126); Aspartate Amino Transferase 97 U/L (14-36); Total Protein 8.4 g/dL (6.3-8.2)
--- NOTE | 2025-08-22 08:24 | PC.NURSE ---
Since patient has history of drug use, IV access is still being attempted. Patient is refusing IO or any other intervention.
[2025-08-22 08:28] LABS: Cannabinoid Screen Urine Positive (Negative)
--- NOTE | 2025-08-22 08:34 | PC.NURSE ---
[facility] at bedside, No IV has been able to be established. Patient stuck total of 9 times by rn's on staff. [facility] staff are attempting access at this time. Patient currently uses neck for IV drug injection both sides are scabbed with raised areas questionable for abscess. ERP states he is unable to look for EJ would have to use IO. Patient is alert and oriented, no distress or change in condition noted. Patient refuses IO.
[2025-08-22 08:45] VITALS: BP 114/74; PULSE 99; RESP 18; O2SAT 98
--- NOTE | 2025-08-22 08:45 | PC.NURSE ---
Krishna attempted multiple times to establish IV access, patient still refusing IO, no change in patient condition, they are going to transport without IV and establish IO if needed in route to [facility]. Ada at [place] and updated them on condition of patient and no iv established. UDS resulted and faxed to [phone]. Patient leaving at this time on stretcher, alert and oriented, no distress noted and no change in condition since arrival to ED.
== END 2025-08-22 08:45 | disposition short-term general hospital (02) ==
LOC: CHSED 07:59
PROVIDERS: Emergency Provider Emergency Medicine; Referring Provider Family Medicine
DX: T40.411A Poisoning by fentanyl or fentanyl analogs, accidental (unintentional), initial encounter (principal); F17.210 Nicotine dependence, cigarettes, uncomplicated
CPT/HCPCS: 36415; 80053; 80143; 80179; 80307; 82077; 85025; 85610; 85730; 93005; 96360; 99285

== ENCOUNTER 2025-11-10 14:53 | Emergency (ER) | payer OTHER, SELFPAY ==
[2025-11-10 15:12] VITALS: BP 125/87; PULSE 96; RESP 16; TEMP 36.8; O2SAT 99
--- OUTSIDE RECORDS SUMMARY | 2025-11-10 17:40 | XMS_ITS | Clinical Summary ---
Author Organization [employer] [facility] lin Address [address] [place] [address] Care Team Providers Care Alum Plant Operator Name Role Phone No, Pcp ORE STORAGE DRIER Primary Care Provider Unavailabl e Social History Tobacco Use Types Packs/Day Years Used Date Smoking Tobacco: Never Assessed Comments Unknown Sex and Gender Information Value Date Recorded Sex Assigned at Not on file Legal Sex Female 6:30 PM EST Gender Identity Not on file Sexual Orientation Not on file Plan of Treatment Not on file Medical Devices Not on file Insurance [place] MEDICAID Care Teams Alum Plant Operator Relationship Specialty Start Date End Date No, Pcp, ORE STORAGE DRIER N/A Do not use PCP - General Family Medicine 12/01/20
--- OUTSIDE RECORDS SUMMARY | 2025-11-10 17:40 | XMS_ITS | Clinical Summary ---
Author Organization [facility] Address [address] [place] [address] Care Team Providers Care Staff Forester Name Role Phone Karina Dill MD Primary Care Provider Source Comments [facility],non-owned Affiliates and Associated Physician Practices is amultiple site organization consisting of ambulatory clinics and hospital sitesin [place], [place], [place] and [place]. This disclosure is being madepursuant to the Care Everywhere program and may not contain all information available regarding this patient. Last updated 18.[facility] [employer] Allergies No known active allergies Medications * This document contains information received from the source organization and may not represent a complete record from that organization. * Be aware that medications may not be up to date on this document. Alwaysverify current medications with the patient. w/o A Vit-Fe Fum-FA (-U) 106.5-1 MG CAPSIndications : Related to Childbirth Take 1 capsule by mouth once daily [...] naloxone HCl (NARCAN) 4 MG/0.1ML nasal spray [place] 1 spray into the nose as needed [...] BPP/dopplers Assessment & Plan (11/24/2020 3:43 PM PROTECTIVE SERVICES CASE WORKER): 11/24/20 ultrasound, EFW 2000g (7%), BPP 8/8, FERNANDO 22.3, breech, fundal placenta, normal UA PI, decrease MCA PI Plan: Repeat ultrasound in 2 weeks for growth, twice weekly NST, weekly BPP/dopplers History of 10/01/2019 Rh negative state in antepartum period 9 Assessment & Plan (11/24/2020 3:27 PM PROTECTIVE SERVICES CASE WORKER): Rhogam given 11/24/20 Abnormal Papanicolaou smear of cervix with positive human papilloma virus (HPV) test 03/02/2019 Overview (03/02/2019): 01/2019: NILM repeat co-testing 1 year Assessment & Plan (11/24/2020 3:26 PM PROTECTIVE SERVICES CASE WORKER): Repeat performed 11/24/20 History of pre-eclampsia in prior , currently 02/19/2019 Overview (06/11/2019): G1- Hydrochlorothiazide and Lisinopril following delivery Protein/creatinine ration: 0.07, 06/10 Assessment & Plan (11/24/2020 3:17 PM PROTECTIVE SERVICES CASE WORKER): Baseline labs today. ASA not started given bleeding as well as advanced gestational age making risks likely outweigh benefits. BP normal. Mild intermittent asthma without complication Assessment & Plan (11/24/2020 3:17 PM PROTECTIVE SERVICES CASE WORKER): Albuterol use 1-2/month only. Anxiety 02/19/2019 Assessment & Plan (11/24/2020 3:18 PM PROTECTIVE SERVICES CASE WORKER): Not on medications and states does not need currently. Bipolar 1 disorder 02/19/2019 Overview (02/19/2019): Diagnosed in 2010 Assessment & Plan (11/24/2020 3:18 PM PROTECTIVE SERVICES CASE WORKER): Not on medications and states does not [...] 11/24/20 Assessment & Plan (11/24/2020 3:20 PM PROTECTIVE SERVICES CASE WORKER): Routine labs today, GCT, immunizations, ultrasound, NST. History of delivery 02/19/2019 Overview (06/10/2019): G2- [facility]; placental abruption at 34 weeks, records in media Assessment & Plan (11/24/2020 3:21 PM PROTECTIVE SERVICES CASE WORKER): History of 1 , prefers another if possible. History of placenta abruption 02/19/2019 Overview (02/23/2019): 2012 C/Section-documented LTCS @34wks for placental abruption, tobacco use. Record scan in to [facility]. Assessment & Plan (11/24/2020 3:21 PM PROTECTIVE SERVICES CASE WORKER): Placenta appears normal today. She is having [...] 2018 Assessment & Plan (11/24/2020 3:25 PM PROTECTIVE SERVICES CASE WORKER): Recommended during last to get maternal ECHO which she never completed. Will attempt to set up at next visit. Methamphetamine use disorder, severe, in early r emission 02/19/2019 Assessment & Plan (11/24/2020 3:26 PM PROTECTIVE SERVICES CASE WORKER): Encouraged to discontinue use and we discussed [...] on file Legal Sex Female 9:28 PM PROTECTIVE SERVICES CASE WORKER Gender Identity Not on file Sexual Orientation Not on file Last Filed Vital Signs Vital Sign Reading Time Taken Comments Blood Pressure 120/61 11/24/2020 3:10 PM PROTECTIVE SERVICES CASE WORKER Pulse 87 11/24/2020 11:55 AM PROTECTIVE SERVICES CASE WORKER Temperature 36.7 C (98 F) 11/24/2020 3:10 PM PROTECTIVE SERVICES CASE WORKER Respiratory Rate 18 11/24/2020 3:10 PM PROTECTIVE SERVICES CASE WORKER Oxygen Saturation 98% 11/24/2020 3:10 PM PROTECTIVE SERVICES CASE WORKER Inhaled Oxygen Concentration - - Weight 71.5 kg (157 lb 9.6 oz) 11/24/2020 4:15 P M PROTECTIVE SERVICES CASE WORKER Height 160 cm (5' 3) 11/24/2020 4:15 PM PROTECTIVE SERVICES CASE WORKER Body Mass Index 27.92 11/24/2020 4:15 PM PROTECTIVE SERVICES CASE WORKER Plan of Treatment Health Maintenance Due Date Last Done Comments HPV VACCINE (1 - 3-dose SCDM series) 2015 COVID-19 VACCINE ( season) 2025 INFLUENZA VACCINE (#1) 2025 0, 10/01/2019, 02/19/2019, [...] IG LB+HPV APTIMA Routine 11/24/2020 2:08 PM PROTECTIVE SERVICES CASE WORKER WISH patient HEPATITIS C ANTIBODY Routine 11/24/2020 1:32 PM PROTECTIVE SERVICES CASE WORKER WISH patient HIV-1 HIV-2 ANTIBODY + HIV P24 AG PANEL Routine 11/24/2020 1:32 PM PROTECTIVE SERVICES CASE WORKER WISH patient from Last 3 Months or Most Recently Relevant to Health Maintenance Results * PAP IG LB+HPV APTIMA (11/24/2020 2:08 PM PROTECTIVE SERVICES CASE WORKER) Diagnosis Comment 11/29/2020 4:09 PM PROTECTIVE SERVICES CASE WORKER [facility] ([facility]) Comment:NEGATIVE FOR INTRAEP ITHELIAL LESION OR MALIGNANCY. Specimen Adequacy Comment 021 4:09 PM PROTECTIVE SERVICES CASE WORKER [facility] ([facility]) Comment:Satisfactory for rene luation. No endocervical component is identified. Performed by Comment 11/29/2020 4:09 PM PROTECTIVE SERVICES CASE WORKER [facility] ([facility]) Comment:Madhuri Recinos, Cyto technologist (ASCP) Comment . 11/29/2020 4:09 PM PROTECTIVE SERVICES CASE WORKER [facility] ([facility]) Note Comment 11/29/2020 4:09 PM PROTECTIVE SERVICES CASE WORKER [facility] ([facility]) [...] CPT Code Automation Comment 11/29/2020 4:09 PM PROTECTIVE SERVICES CASE WORKER [facility] ([facility]) Comment: This liquid based ThinPrep(R) pap test was screened with the use of an image guided system. Human papillomavirus Aptima Negative Negative 11/29/2020 4:09 PM PROTECTIVE SERVICES CASE WORKER [facility] ([facility]) Comment: This nucleic acid amplification test detects fourteen high-risk HPV types (16,18,31,33,35,39,45,51,52,56,58,59,66,68) without differentiation. Pathology/Cytolo gy PART OF UTERINE CERVIX / Unknown Collection / Unknown 11/24/2020 2:08 PM PROTECTIVE SERVICES CASE WORKER 11/24/2020 3:19 PM PROTECTIVE SERVICES CASE WORKER Narrative [facility] ([facility]) - 11/29/2020 4:09 PM PROTECTIVE SERVICES CASE WORKER Performed at: 01 - [facility] [address], [place] [id number] Ship Engineer: Chula Martin MD, Phone: [phone] Performed at: 02 - [facility] [address], [place] [id number] Ship Engineer: Chula Martin MD, Phone: [phone] Specimen Comment: No. of containers..01 ThinPrep Vial Abby Gomez MD LAB - PATHOLOGY/CYTOLOGY O RDERABLES Final Result [facility] ([facility]) [address] [place] [address] * HIV-1 HIV-2 ANTIBODY + HIV P24 AG PANEL (11/24/2020 1:32 PM PROTECTIVE SERVICES CASE WORKER) Pathologist [facility] HIV1/2 Ab + P24 Ag Non Reactive Non Reactive 11/24/2020 2:57 PM PROTECTIVE SERVICES CASE WORKER [facility] Blood BLOOD SPECIMEN / Unknown Venipuncture / Unknown 11/24/2020 1:32 PM PROTECTIVE SERVICES CASE WORKER 11/24/2020 2:12 PM PROTECTIVE SERVICES CASE WORKER Narrative [facility] - 11/24/2020 2:57 PM PROTECTIVE SERVICES CASE WORKER No Laboratory evidence of HIV infection. Abby Gomez MD LAB - CHEMISTRY ORDERABLES Final Result Performing Organization Address City/[facility]/ZIP Co de Phone Number [facility] [address] [place] [address] * HEPATITIS C ANTIBODY (11/24/2020 1:32 PM PROTECTIVE SERVICES CASE WORKER) Pathologist [facility] HCV Antibody Screen Non Reactive Non Reactive 11/24/2020 2:58 PM PROTECTIVE SERVICES CASE WORKER [facility] Blood BLOOD SPECIMEN / Unknown Venipuncture / Unknown 11/24/2020 1:32 PM PROTECTIVE SERVICES CASE WORKER 11/24/2020 2:12 PM PROTECTIVE SERVICES CASE WORKER Narrative [facility] - 11/24/2020 2:58 PM PROTECTIVE SERVICES CASE WORKER Non Reactive - Antibodies to Hepatitis C virus (HCV) were not detected, result does not exclude early acute HCV infection. Abby Gomez MD LAB - CHEMISTRY ORDERABLES Final Result [facility] [address] [place] [address] from Last 3 Months or Most Recently Relevant to Health Maintenance Insurance MEDICAID [employer] [place] Advance Directives * Full Code (Latest Code Status on File) Date Activated Date Inactivated Comments 11/24/2020 3:23 PM 11/25/2020 12:44 AM * Full Code Date Activated Date Inactivated Comments 09/18/2019 6:46 AM 09/20/2019 4:22 PM Care Teams Staff Forester Relationship Specialty Start Date End Date Sweetfriend, Karina, MD [address] [id number] PCP - General 12/21/20
--- OUTSIDE RECORDS SUMMARY | 2025-11-10 17:40 | XMS_ITS | Clinical Summary ---
Author Organization [facility] Address [facility] [place] [address] Care Team Providers Care Senior Ssis Developer Name Role Phone None, Provider MD Primary [...] Active Problems Problem Noted Date Diagnosed Date Purposeful non-suicidal drug ingestion 5 Breech presentation 12/20/2020 delivery delivered 12/20/2020 Post-operative complication 12/20/2020 Encounters Date Type Department Care Team Description 08/22/2025 9:35 AM CDT - 08/22/2025 1:00 PM T Hospital Encounter [facility] Cardiovascular ICU [address] [place] [address] Deyvi Armas MD Discharge Disposition: Left Against Medical Advice from Last 3 Months Family History Relation Status Comments Father Social [...] Information Value Date Recorded Sex Assigned at Female 08/22/2025 11:30 AM CDT Legal Sex Female 2:15 AM RESOURCE CONSERVATIONIST Gender Identity Not on file Sexual Orientation Not on file Last Filed Vital Signs Vital Sign Reading Time Taken Comments Blood Pressure 127/84 08/22/2025 12:00 PM CDT Pulse 105 08/22/2025 12:00 PM CDT Temperature 36.9 C (98.4 F) 08/22/2025 10:00 AM CDT Respiratory Rate 15 08/22/2025 12:00 PM CDT Oxygen Saturation 99% 08/22/2025 12:00 PM CDT Inhaled Oxygen Concentration - - Weight 64 kg (141 lb 1.5 oz) 08/22/2025 9:39 AM CDT Height 160 cm (5' 3) 08/22/2025 9:39 AM CDT Body Mass Index 24.99 08/22/2025 9:39 AM CDT Plan of Treatment Health Maintenance Due Date Last Done Comments Annual Physical 1991 Pneumococcal Vaccine: Pediatrics (0 to 5 Years) and At-Risk Patients (6 to 49 Years) (1 of 2 - PCV) 2007 HPV Vaccines (1 - 3-dose SCDM series) 2015 Cervical Cancer Screening Pap with HPV Testing (Age 30 to 64) Every 5 Years 2018 Cervical Cancer Screening Pap Smear (Age 30 to 64) Every 3 Years 11/24/2023 11/24/2020, 11/24/2020 Cervical Cancer Screening with HPV 11/24/2023 COVID-19 Vaccine ( season) 2025 Influenza Adult (#1) 2025 11/24/2020, 10/01/2019, 02/19/2019, Additional history exists DTaP, Tdap and Td Vaccines (9 - Td or Tdap) 11/24/2030 11/24/2020, 08/17/2019, 10/04/2010, Additional history exists Hepatitis A Vaccines Aged Out 10/01/2019, 02/20/20 19 No longer eligible based on patient's age to complete this topic Hepatitis B Vaccines Completed 10/01/2019, 06/10/2019, 02/19/2019, Additional history exists Hepatitis C Completed 12/20/2020, 11/26, 11/24/2020 Meningococcal B Vaccine Aged Out No l onger eligible based on patient's age to complete this topic Meningococcal Vaccine Aged Out No yayd rosa eligible based on patient's age to complete this topic RSV Immunizations Under 20 Months Aged Out No longer eligible based on patient's age to complete this topic Procedures Procedure Name Priority Date/Time Associated Diagnosis Comments HC MRSA AMP Nurse Collected Priority 08/22/2025 10:02 AM CDT POCT ACUTE VENOUS PANEL Routine 08/22/2025 10:01 AM CDT HC PROTHROMBIN TIME (PT) Routine 08/22/2025 10:00 AM CDT HC CBC AUTO W/AUTO DIFF Routine 08/22/2025 10:00 AM CDT HC CALCIUM IONIZED Routine 08/22/2025 10 :00 AM CDT HC LIVER (HEPATIC) PANEL Routine 08/22/2025 10:00 AM CDT HC THYROID STIMULATING HORM Routine 08/22/2025 10:00 AM CDT HC PHOSPHORUS Routine 08/22/2025 10:00 AM CDT HC LACTATE/LACTIC ACID Routine 08/22/2025 10:00 AM CDT HC MAGNESIUM Routine 08/22/2025 10:00 AM CDT HC TROPONIN QN Routine 08/22/2025 10:00 AM CDT HC BASIC METABOLIC PANEL Routine 08/22/2025 10:00 AM CDT POCT GLUCOSE - DOCKED DEVICE Routine 08/22/2025 9:59 AM CDT HEPATITIS C ANTIBODY Routine 12/20/2020 9:11 AM RESOURCE CONSERVATIONIST from Last 3 Months or Most Recently Relevant to Health Maintenance Results * (ABNORMAL) STAPH SCREENING BY PCR (08/22/2025 10:02 AM CDT) SPECIMEN SOURCE RESPIRATORY, NOSE 08/22/2025 9:57 AM CDT [facility] MRSA BY PCR NASAL METHICILLIN RESISTANT STAPH AUREUS DETECTED.(A) METHICILLIN RESISTANT STAPH AUREUS NOT DETECTED 08/23/2025 11:39 AM CDT [facility] Comment:PATIENT DISCHARGED NASAL STRUCTURE / Unknown 08/22/2025 10:02 AM CDT us Obiora Chidi Armas MD MICROBIOLOGY - GENERAL ORDERA BLES Final Result [facility] [address] [place] [address], [phone] * (ABNORMAL) POCT ACUTE VENOUS PANEL (08/22/2025 10:01 AM CDT) SODIUM WHOLE BLOOD 141 138 - 146 mmol/L 08/22/2025 10:05 AM CDT [facility] POTASSIUM WHOLE BLOOD 3.2(L) 3.5 - 4.9 mmol/L 08/22/2025 10:05 AM CDT [facility] CA IONIZED WH BLOOD 1.20 1.12 - 1.32 mmol/L 08/22/2025 10:05 AM CDT [facility] POC PH VENOUS 7.380 7.31 - 7.41 08/22/2025 10:05 AM CDT [facility] POC PCO2 VENOUS 48.0 41.0 - 51.0 MMHG 08/22/2025 10:05 AM CDT [facility] POC PO2 VENOUS 26 25 - 40 MMHG 08/22/2025 10:05 AM CDT [facility] POC HCO3 VENOUS 28.4(H) 23 - 28 MMOL/L 08/22/2025 10:05 AM CDT [facility] POC TCO2 VENOUS 30(H) 24 - 29 MMOL/L 08/22/2025 10:05 AM CDT [facility] POC BASE EXCESS VENOUS 3 0 - 3 MMOL/L 08/22/2025 10:05 AM CDT [facility] POC HEMATOCRIT 38 38 - 51 % 08/22/2025 10:05 AM CDT [facility] TIME TEST WAS PERFORMED: 1001 08/22/2025 10:05 AM CDT [facility] 08/22/2025 10:0 1 AM CDT us Deyvi Armas MD POCT ORDERABLES - DEVICE Farzana l Result Performing Organization Address [facility] Co de Phone Number [facility] [address] [place] [address], [place] [phone] * PROTHROMBIN TIME, VENOUS (08/22/2025 10:00 AM CDT) PROTIME 12.1 9.4 - 12.5 SEC 08/22/2025 10:49 AM CDT [facility] INR 1.1 0.8 - 1.1 08/22/2025 10:49 AM CDT [facility] 08/22/2025 10:0 0 AM CDT Obtrey Armas MD LABORATORY Final Result Performing Organization Address [facility] Co de Phone Number [facility] [address] [place] [address], [place] [phone] * (ABNORMAL) BASIC METABOLIC PANEL (08/22/2025 10:00 AM CDT) SODIUM S/P/B 141 136 - 145 MMOL/L 08/22/2025 10:54 AM T [facility] POTASSIUM S/P/B 3.2(L) 3.5 - 5.1 MMOL/L 08/22/2025 10:54 AM CDT [facility] CHLORIDE S/P/B 107 97 - 115 MMOL/L 08/22/2025 10:54 AM T [facility] CO2 27.7 21.0 - 32.0 MMOL/L 08/22/2025 10:54 AM T [facility] GLUCOSE 86 74 - 106 MG/DL 08/22/2025 10:54 AM [facility] BUN 7 7 - 18 MG/DL 08/22/2025 10:54 AM [facility] CREATININE S/P/B 0.70 0.55 - 1.02 MG/DL 08/22/2025 10:54 AM T [facility] CALCIUM S/P/B 8.6 8.5 - 10.1 MG/DL 08/22/2025 10:54 AM [facility] ANION GAP 6.3 2.0 - 10.0 MMOL/L 08/22/2025 10:54 AM [facility] OSMOLALITY (CALC) 289 MOSM/KG 025 10:54 AM [facility] Comment:REFERENCE RANGE NOT ESTABLISHED GFR ESTIMATE >90 >90 ML/MIN/1. 73 M2 08/22/2025 10:54 AM T [facility] GFR NOTES GFR REFERENCE S: 08/22/2025 10:54 AM [facility] Comment: THE ESTIMATED GFR IS CALCULATED USING THE 2020 CKD-EPI EQUATION. THE FOLLOWING CATEGORIES FOR GRADING RENAL FUNCTION ARE RECOMMENDED BY THE INTERNATIONAL SOCIETY OF NEPHROLOGY (KDIGO 2012 CLINICAL PRACTICE GUIDELINE). G1,NORMAL OR HIGH: >89 ml/min/1.73 m2 G2,MILDLY DECREASED: 60-89 ml/min/1.73 m2 G3A,MILDLY TO MODERATELY DECREASED: 45-59 ml/min/1.73 m2 G3B,MODERATELY TO SEVERELY DECREASED: 30-44 ml/min/1.73 m2 G4,SEVERELY DECREASED: 15-29 ml/min/1.73 m2 G5,KIDNEY FAILURE: <15 ml/min/1.73 m2 08/22/2025 10:0 0 AM CDT us Deyvi Armas MD LABORATORY Final Result Performing Organization Address City/[facility] Co de Phone Number [facility] [address] [address], [phone] * LACTIC ACID - SINGLE (08/22/2025 10:00 AM CDT) LACTIC ACID VENOUS 0.9 0.4 - 2.0 MMOL/L 08/22/2025 10:36 AM CDT [facility] 08/22/2025 10:0 0 AM CDT Obtrey Armas MD LABORATORY Final Result Performing Organization Address [facility] de Phone Number [facility] [address] [address], [place] [phone] * (ABNORMAL) HEPATIC FUNCTION PANEL (08/22/2025 10:00 AM CDT) BILIRUBIN TOTAL S/P/B 0.7 0.2 - 1.0 MG/DL 08/22/2025 10:54 AM CDT [facility] BILIRUBIN DIRECT S/P/B 0.2 0.0 - 0.2 MG/DL 08/22/2025 10:54 AM CDT [facility] ALKALINE PHOSPHATASE S/P/B 137(H) 37 - 98 U/L 08/22/2025 10:54 AM CDT [facility] AST 73(H) 15 - 37 U/L 08/22/2025 10:54 AM CDT [facility] ALT 190(H) 13 - 56 U/L 08/22/2025 10:54 AM CDT [facility] TOTAL PROTEIN S/P/B 6.9 6.4 - 8.2 G/DL 08/22/2025 10:54 AM CDT [facility] ALBUMIN S/P/B 3.3(L) 3.4 - 5.0 G/DL 08/22/2025 10:54 AM CDT [facility] 08/22/2025 10:0 0 AM CDT us Obtrey Armas MD LABORATORY Final Result [facility] [address] [place] [address], [phone] * (ABNORMAL) CBC W/DIFF AUTOMATED (08/22/2025 10:00 AM CDT) WBC 8.69 4.00 - 10.80 x10'3/uL 08/22/2025 10:15 AM CDT [facility] RBC 4.14 4.10 - 5.40 x10'6/uL 08/22/2025 10:15 AM CDT [facility] HGB 11.8(L) 12.0 - 16.0 G/DL 08/22/2025 10:15 AM CDT [facility] HCT 34.6(L) 36.0 - 47.0 % 08/22/2025 10:15 AM CDT [facility] MCV 83.6 78.0 - 100.0 FL 08/22/2025 10:15 AM CDT [facility] MCH 28.5 27.0 - 31.0 PG 08/22/2025 10:15 AM CDT [facility] MCHC 34.1 33.0 - 36.0 G/DL 08/22/2025 10:15 AM CDT [facility] RDW 13.6 11.5 - 14.5 % 08/22/2025 10:15 AM CDT [facility] PLT 326 150 - 350 x10'3/uL 08/22/2025 10:15 AM CDT [facility] MPV 10.6(H) 7.4 - 10.4 FL 08/22/2025 10:15 AM CDT [facility] DIFFERENTIAL TYPE AUTOMATED DIFFERENTIAL 08/22/2025 10:15 AM CDT [facility] SEG NEUTROPHILS 56.6 % 10:15 AM CDT [facility] LYMPHOCYTES 32.6 % 08/22/2025 10:15 AM T [facility] MONOCYTES 6.4 % 08/22/2025 10:15 AM CDT [facility] EOSINOPHILS 3.7 % 08/22/2025 10:15 AM CDT [facility] BASOPHILS 0.5 % 08/22/2025 10:15 AM CDT [facility] IMMATURE GRANS % 0.2 % 08/22/20 10:15 AM CDT [facility] ABS. NEUTROPHILS 4.92 1.60 - 8.30 x10'3/uL 08/22/2025 10:15 AM CDT [facility] ABS. LYMPHOCYTES 2.83 0.80 - 4.70 x10'3/uL 08/22/2025 10:15 AM CDT [facility] ABS. MONOCYTES 0.56 0.00 - 1.50 x10'3/uL 08/22/2025 10:15 AM CDT [facility] ABS. EOSINOPHILS 0.32 0.00 - 0.40 x10'3/uL 08/22/2025 10:15 AM CDT [facility] ABS. BASOPHILS 0.04 0.00 - 0.20 x10'3/uL 08/22/2025 10:15 AM CDT [facility] ABS. IMMATURE GRANULOCYTES 0.02 0.00 - 0.03 x10'3/uL 08/22/2025 10:15 AM CDT [facility] ABS. NUCLEATED RBC'S 0.00 0.00 - 0.01 x10'3/uL 08/22/2025 10:15 AM CDT [facility] NRBC % 0.0 % 08/22/2025 10:15 AM CDT [facility] 08/22/2025 10:0 0 AM CDT us Obiora I Chanda THOMASON LABORATORY Final Result Performing Organization Address City/[facility]/ZIP Co de Phone Number [facility] [address] [address], [place] [phone] * TROPONIN, QUANT (08/22/2025 10:00 AM CDT) TROPONIN I HIGH SENSITIVITY 22 0 - 53 ng/L 08/22/2025 10:54 AM CDT [facility] 08/22/2025 10:0 0 AM CDT us Obiora I Chanda THOMASON LABORATORY Final Result Performing Organization Address [facility]/ZIP Co de Phone Number [facility] [address] [place] [address], [place] [phone] * THYROID STIM HORMONE, TSH (08/22/2025 10:00 AM CDT) TSH 1.390 0.358 - 3.740 uIU/ML 08/22/2025 10:54 AM CDT [facility] Comment: ASSAY PERFORMED BY CHEMILUMINESCENCE METHODOLOGY USING [employer]. PATIENT RESULTS DETERMINED BY ASSAYS USING DIFFERENT MANUFACTURERS FOR METHODS MAY NOT BE COMPARABLE. 08/22/2025 10:0 0 AM CDT us Obiorjeanie Armas MD LABORATORY Final Result Performing Organization Address [facility] Co de Phone Number [facility] [address] [place] [address], [place] [phone] * PHOSPHORUS, INORGANIC PHOSPHATE (08/22/2025 10:00 AM CDT) PHOSPHORUS 3.1 2.5 - 4.9 MG/DL 08/22/2025 10:54 AM CDT [facility] 08/22/2025 10:0 0 AM CDT Obiorjeanie Armas MD LABORATORY Final Result Performing Organization Address [facility] de Phone Number [facility] [address] [place] [address], [phone] * MAGNESIUM (08/22/2025 10:00 AM CDT) MAGNESIUM 2.2 1.6 - 2.6 MG/DL 08/22/2025 10:54 AM CDT [facility] 08/22/2025 10:0 0 AM CDT Obtrey Armas MD LABORATORY Final Result Performing Organization Address [facility] de Phone Number [facility] [address] [place] [address], [place] [phone] * CALCIUM, IONIZED (08/22/2025 10:00 AM CDT) CALCIUM IONIZED 1.16 1.15 - 1.33 MMOL/L 08/22/2025 10:57 AM CDT [facility] 08/22/2025 10:0 0 AM CDT Obtrey Armas MD LABORATORY Final Result Performing Organization Address [facility] Co de Phone Number [facility] [address] [place] [address], [id number] * POCT glucose (08/22/2025 9:59 AM CDT) [facility] GLUCOSE POC 96 70 - 109 08/23/2025 9:26 PM CDT [facility] 08/22/2025 9:59 AM CDT Deyvi Armas MD POCT ORDERABLES - DEVICE Farzana l Result Performing Organization Address [facility] Co de Phone Number [facility] [address] [place] [address], [phone] * HEPATITIS C ANTIBODY (12/20/2020 9:11 AM RESOURCE CONSERVATIONIST) [facility] HEPATITIS C AB NON-REACTI VE NON-REACT BEATRICE 12/20/2020 6:38 PM RESOURCE CONSERVATIONIST [facility] Comment: ANTIBODIES TO HCV NOT DETECTED. DOES NOT EXCLUDE THE POSSIBILITY OF EXPOSURE TO HCV. 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
--- NOTE | 2025-11-10 17:52 | PC.NURSE ---
pt called with no response. seen leaving waiting room earlier in NAD, did not return, not seen in waiting room anymore.
--- OUTSIDE RECORDS SUMMARY | 2025-11-10 19:00 | XMS_ITS | Clinical Summary ---
Author Organization [facility] Address [address] [place] [address] Care Team Providers Care Core Man Name Role Phone Karina Dill MD Primary Care Provider Source Comments [facility],non-owned Affiliates and Associated Physician Practices is amultiple site organization consisting of ambulatory clinics and hospital sitesin [place], [place], [place] and [place]. This disclosure is being madepursuant to the Care Everywhere program and may not contain all information available regarding this patient. Last updated 18.[facility] Allergies No known active allergies Medications * [...] naloxone HCl (NARCAN) 4 MG/0.1ML nasal spray [place] 1 spray into the nose as needed [...] BPP/dopplers Assessment & Plan (11/24/2020 3:43 PM OFFICE MACHINE INSTALLER): 11/24/20 ultrasound, EFW 2000g (7%), BPP 8/8, FERNANDO 22.3, breech, fundal placenta, normal UA PI, decrease MCA PI Plan: Repeat ultrasound in 2 weeks for growth, twice weekly NST, weekly BPP/dopplers History of 10/01/2019 Rh negative state in antepartum period 9 Assessment & Plan (11/24/2020 3:27 PM OFFICE MACHINE INSTALLER): Rhogam given 11/24/20 Abnormal Papanicolaou smear of cervix with positive human papilloma virus (HPV) test 03/02/2019 Overview (03/02/2019): 01/2019: NILM repeat co-testing 1 year Assessment & Plan (11/24/2020 3:26 PM OFFICE MACHINE INSTALLER): Repeat performed 11/24/20 History of pre-eclampsia in prior , currently 02/19/2019 Overview (06/11/2019): G1- Hydrochlorothiazide and Lisinopril following delivery Protein/creatinine ration: 0.07, 06/10 Assessment & Plan (11/24/2020 3:17 PM OFFICE MACHINE INSTALLER): Baseline labs today. ASA not started given bleeding as well as advanced gestational age making risks likely outweigh benefits. BP normal. Mild intermittent asthma without complication Assessment & Plan (11/24/2020 3:17 PM OFFICE MACHINE INSTALLER): Albuterol use 1-2/month only. Anxiety 02/19/2019 Assessment & Plan (11/24/2020 3:18 PM OFFICE MACHINE INSTALLER): Not on medications and states does not need currently. Bipolar 1 disorder 02/19/2019 Overview (02/19/2019): Diagnosed in 2010 Assessment & Plan (11/24/2020 3:18 PM OFFICE MACHINE INSTALLER): Not on medications and states does not [...] 11/24/20 Assessment & Plan (11/24/2020 3:20 PM OFFICE MACHINE INSTALLER): Routine labs today, GCT, immunizations, ultrasound, NST. History of delivery 02/19/2019 Overview (06/10/2019): G2- Documented LTCS @ [facility]; placental abruption at 34 weeks, records in media Assessment & Plan (11/24/2020 3:21 PM OFFICE MACHINE INSTALLER): History of 1 , prefers another if possible. History of placenta abruption 02/19/2019 Overview (02/23/2019): 2012 C/Section-documented LTCS @34wks for placental abruption, tobacco use. Record scan in to [facility]. Assessment & Plan (11/24/2020 3:21 PM OFFICE MACHINE INSTALLER): Placenta appears normal today. She is having [...] 2018 Assessment & Plan (11/24/2020 3:25 PM OFFICE MACHINE INSTALLER): Recommended during last to get maternal ECHO which she never completed. Will attempt to set up at next visit. Methamphetamine use disorder, severe, in early r emission 02/19/2019 Assessment & Plan (11/24/2020 3:26 PM OFFICE MACHINE INSTALLER): Encouraged to discontinue use and we discussed [...] on file Legal Sex Female 9:28 PM OFFICE MACHINE INSTALLER Gender Identity Not on file Sexual Orientation Not on file Last Filed Vital Signs Vital Sign Reading Time Taken Comments Blood Pressure 120/61 11/24/2020 3:10 PM OFFICE MACHINE INSTALLER Pulse 87 11/24/2020 11:55 AM OFFICE MACHINE INSTALLER Temperature 36.7 C (98 F) 11/24/2020 3:10 PM OFFICE MACHINE INSTALLER Respiratory Rate 18 11/24/2020 3:10 PM OFFICE MACHINE INSTALLER Oxygen Saturation 98% 11/24/2020 3:10 PM OFFICE MACHINE INSTALLER Inhaled Oxygen Concentration - - Weight 71.5 kg (157 lb 9.6 oz) 11/24/2020 4:15 P M OFFICE MACHINE INSTALLER Height 160 cm (5' 3) 11/24/2020 4:15 PM OFFICE MACHINE INSTALLER Body Mass Index 27.92 11/24/2020 4:15 PM OFFICE MACHINE INSTALLER Plan of Treatment Health Maintenance Due Date [...] IG LB+HPV APTIMA Routine 11/24/2020 2:08 PM OFFICE MACHINE INSTALLER WISH patient HEPATITIS C ANTIBODY Routine 11/24/2020 1:32 PM OFFICE MACHINE INSTALLER WISH patient HIV-1 HIV-2 ANTIBODY + HIV P24 AG PANEL Routine 11/24/2020 1:32 PM OFFICE MACHINE INSTALLER WISH patient from Last 3 Months or Most Recently Relevant to Health Maintenance Results * PAP IG LB+HPV APTIMA (11/24/2020 2:08 PM OFFICE MACHINE INSTALLER) Diagnosis Comment 11/29/2020 4:09 PM OFFICE MACHINE INSTALLER [facility] ([facility]) Comment:NEGATIVE FOR INTRAEP ITHELIAL LESION OR MALIGNANCY. Specimen Adequacy Comment 021 4:09 PM OFFICE MACHINE INSTALLER [facility] ([facility]) Comment:Satisfactory for rene luation. No endocervical component is identified. Performed by Comment 11/29/2020 4:09 PM OFFICE MACHINE INSTALLER [facility] ([facility]) Comment:Madhuri Recinos, Cyto technologist (ASCP) Comment . 11/29/2020 4:09 PM OFFICE MACHINE INSTALLER [facility] ([facility]) Note Comment 11/29/2020 4:09 PM OFFICE MACHINE INSTALLER [facility] ([facility]) Comment: The Pap smear is a screening test designed to aid in the detection of premalignant and malignant conditions of the uterine cervix. It is not a diagnostic procedure and should not be used as the sole means of detecting cervical cancer. Both false-positive and false-negative reports do occur. IGLBP CPT Code Automation Comment 11/29/2020 4:09 PM OFFICE MACHINE INSTALLER [facility] ([facility]) Comment: This liquid based ThinPrep(R) pap test was screened with the use of an image guided system. Human papillomavirus Aptima Negative Negative 11/29/2020 4:09 PM OFFICE MACHINE INSTALLER [facility] ([facility]) Comment: This nucleic acid amplification test detects fourteen high-risk HPV types (16,18,31,33,35,39,45,51,52,56,58,59,66,68) without differentiation. Pathology/Cytolo gy PART OF UTERINE CERVIX / Unknown Collection / Unknown 11/24/2020 2:08 PM OFFICE MACHINE INSTALLER 11/24/2020 3:19 PM OFFICE MACHINE INSTALLER Narrative [facility] ([facility]) - 11/29/2020 4:09 PM OFFICE MACHINE INSTALLER Performed at: 01 - [facility] [address], [place] [id number] Tub Chucker: Chula Martin MD, Phone: [phone] Performed at: 02 - [facility] [address], [place] [id number] Tub Chucker: Chula Martin MD, Phone: [phone] Specimen Comment: No. of containers..01 ThinPrep Vial Abby Gomez MD LAB - PATHOLOGY/CYTOLOGY O RDERABLES Final Result [facility] ([facility]) [address] [place] [address] * HIV-1 HIV-2 ANTIBODY + HIV P24 AG PANEL (11/24/2020 1:32 PM OFFICE MACHINE INSTALLER) Pathologist [facility] HIV1/2 Ab + P24 Ag Non Reactive Non Reactive 11/24/2020 2:57 PM OFFICE MACHINE INSTALLER [facility] Blood BLOOD SPECIMEN / Unknown Venipuncture / Unknown 11/24/2020 1:32 PM OFFICE MACHINE INSTALLER 11/24/2020 2:12 PM OFFICE MACHINE INSTALLER Narrative [facility] - 11/24/2020 2:57 PM OFFICE MACHINE INSTALLER No Laboratory evidence of HIV infection. Abby Gomez MD LAB - CHEMISTRY ORDERABLES Final Result Performing Organization Address City/[facility]/ZIP Co de Phone Number [facility] [address] [place] [address] * HEPATITIS C ANTIBODY (11/24/2020 1:32 PM OFFICE MACHINE INSTALLER) Pathologist [facility] HCV Antibody Screen Non Reactive Non Reactive 11/24/2020 2:58 PM OFFICE MACHINE INSTALLER [facility] Blood BLOOD SPECIMEN / Unknown Venipuncture / Unknown 11/24/2020 1:32 PM OFFICE MACHINE INSTALLER 11/24/2020 2:12 PM OFFICE MACHINE INSTALLER Narrative [facility] - 11/24/2020 2:58 PM OFFICE MACHINE INSTALLER Non Reactive - Antibodies to Hepatitis C virus (HCV) were not detected, result does not exclude early acute HCV infection. Abby Gomez MD LAB - CHEMISTRY ORDERABLES Final Result [facility] [address] [place] [address] from Last 3 Months or Most Recently Relevant to Health Maintenance Insurance MEDICAID [employer] [place] Advance Directives * Full Code (Latest Code Status on File) Date Activated Date Inactivated Comments 11/24/2020 3:23 PM 11/25/2020 12:44 AM * Full Code Date Activated Date Inactivated Comments 09/18/2019 6:46 AM 09/20/2019 4:22 PM Care Teams Core Man Relationship Specialty Start Date End Date Sweetfriend, Karina, MD [address] [id number] PCP - General 12/21/20
--- OUTSIDE RECORDS SUMMARY | 2025-11-10 19:00 | XMS_ITS | Clinical Summary ---
Author Organization [facility] Address [address] [place] [address] Care Team Providers Care Production Hand Name Role Phone No, Pcp [employer] EQUIPMENT WIRER Primary Care Provider Unavailabl e Social History Tobacco Use Types Packs/Day Years Used Date Smoking Tobacco: Never Assessed Comments Unknown Sex and Gender Information Value Date Recorded Sex Assigned at Not on file Legal Sex Female 6:30 PM EST Gender Identity Not on file Sexual Orientation Not on file Plan of Treatment Not on file Medical Devices Not on file Insurance [place] MEDICAID Care Teams Production Hand Relationship Specialty Start Date End Date No, Pcp, INDUSTRIAL EQUIPMENT WIRER N/A Do not use PCP - General Family Medicine 12/01/20
--- OUTSIDE RECORDS SUMMARY | 2025-11-10 19:00 | XMS_ITS | Clinical Summary ---
Author Organization [facility] Address [facility] [place] [address] Care Team Providers Care Social Service Agency Director Name Role Phone None, Provider MD Primary [...] - 08/22/2025 1:00 PM T Hospital Encounter [facility] Cardiovascular ICU [address] [place] [address] Deyvi Armas MD Discharge Disposition: [...] AM CDT Legal Sex Female 2:15 AM HOME PERFORMANCE CONSULTANT Gender Identity Not on file Sexual Orientation [...] HEPATITIS C ANTIBODY Routine 12/20/2020 9:11 AM HOME PERFORMANCE CONSULTANT from Last 3 Months or Most Recently Relevant to Health Maintenance Results * (ABNORMAL) STAPH SCREENING BY PCR (08/22/2025 10:02 AM CDT) SPECIMEN SOURCE RESPIRATORY, NOSE 08/22/2025 9:57 AM CDT [facility] MRSA BY PCR NASAL METHICILLIN RESISTANT STAPH AUREUS DETECTED.(A) METHICILLIN RESISTANT STAPH AUREUS NOT DETECTED 08/23/2025 11:39 AM CDT [facility] Comment:PATIENT DISCHARGED NASAL STRUCTURE / Unknown 08/22/2025 10:02 AM CDT us Obiora Chidi Armas MD MICROBIOLOGY - GENERAL ORDERA BLES Final Result [facility] [address] [place] [address], [phone] * (ABNORMAL) POCT ACUTE VENOUS PANEL (08/22/2025 10:01 AM CDT) SODIUM WHOLE BLOOD 141 138 - 146 mmol/L 08/22/2025 10:05 AM CDT [facility] POTASSIUM WHOLE BLOOD 3.2(L) 3.5 - 4.9 mmol/L 08/22/2025 10:05 AM CDT [facility] CA IONIZED WH BLOOD 1.20 1.12 - 1.32 mmol/L 08/22/2025 10:05 AM CDT [facility] POC PH VENOUS 7.380 7.31 - 7.41 08/22/2025 10:05 AM CDT [facility] POC PCO2 VENOUS 48.0 41.0 - 51.0 MMHG 08/22/2025 10:05 AM CDT [facility] POC PO2 VENOUS 26 25 - 40 MMHG 08/22/2025 10:05 AM CDT [facility] POC HCO3 VENOUS 28.4(H) 23 - 28 MMOL/L 08/22/2025 10:05 AM CDT [facility] POC TCO2 VENOUS 30(H) 24 - 29 MMOL/L 08/22/2025 10:05 AM CDT [facility] POC BASE EXCESS VENOUS 3 0 - 3 MMOL/L 08/22/2025 10:05 AM CDT [facility] POC HEMATOCRIT 38 38 - 51 % 08/22/2025 10:05 AM CDT [facility] TIME TEST WAS PERFORMED: 1001 08/22/2025 10:05 AM CDT [facility] 08/22/2025 10:0 1 AM CDT us Deyvi Armas MD POCT ORDERABLES - DEVICE Farzana l Result Performing Organization Address [facility] Co de Phone Number [facility] [address] [place] [id number], [place] [phone] * PROTHROMBIN TIME, VENOUS (08/22/2025 10:00 AM CDT) PROTIME 12.1 9.4 - 12.5 SEC 08/22/2025 10:49 AM CDT [facility] INR 1.1 0.8 - 1.1 08/22/2025 10:49 AM CDT [facility] 08/22/2025 10:0 0 AM CDT Obtrey Armas MD LABORATORY Final Result Performing Organization Address [facility] Co de Phone Number [facility] [address] [place] [address], [place] [phone] * (ABNORMAL) BASIC METABOLIC PANEL (08/22/2025 10:00 AM CDT) SODIUM S/P/B 141 136 - 145 MMOL/L 08/22/2025 10:54 AM T [facility] POTASSIUM S/P/B 3.2(L) 3.5 - 5.1 MMOL/L 08/22/2025 10:54 AM CDT [facility] CHLORIDE S/P/B 107 97 - 115 MMOL/L 08/22/2025 10:54 AM T [facility] CO2 27.7 21.0 - 32.0 MMOL/L 08/22/2025 10:54 AM T [facility] GLUCOSE 86 74 - 106 MG/DL 08/22/2025 10:54 AM [facility] BUN 7 7 - 18 MG/DL 08/22/2025 10:54 AM [facility] CREATININE S/P/B 0.70 0.55 - 1.02 MG/DL 08/22/2025 10:54 AM T [facility] CALCIUM S/P/B 8.6 8.5 - 10.1 MG/DL 08/22/2025 10:54 AM [facility] ANION GAP 6.3 2.0 - 10.0 MMOL/L 08/22/2025 10:54 AM [facility] OSMOLALITY (CALC) 289 MOSM/KG 025 10:54 AM [facility] Comment:REFERENCE RANGE NOT ESTABLISHED GFR ESTIMATE >90 >90 ML/MIN/1. 73 M2 08/22/2025 10:54 AM T [facility] GFR NOTES GFR REFERENCE S: 08/22/2025 10:54 AM [facility] Comment: THE ESTIMATED GFR IS CALCULATED [...] MD LABORATORY Final Result Performing Organization Address City/[facility] Co de Phone Number [facility] [address] [address], [phone] * LACTIC ACID - SINGLE (08/22/2025 10:00 AM CDT) LACTIC ACID VENOUS 0.9 0.4 - 2.0 MMOL/L 08/22/2025 10:36 AM CDT [facility] 08/22/2025 10:0 0 AM CDT Obtrey Armas MD LABORATORY Final Result Performing Organization Address [facility] de Phone Number [facility] [address] [address], [place] [phone] * (ABNORMAL) HEPATIC FUNCTION PANEL (08/22/2025 10:00 AM CDT) BILIRUBIN TOTAL S/P/B 0.7 0.2 - 1.0 MG/DL 08/22/2025 10:54 AM CDT [facility] BILIRUBIN DIRECT S/P/B 0.2 0.0 - 0.2 MG/DL 08/22/2025 10:54 AM CDT [facility] ALKALINE PHOSPHATASE S/P/B 137(H) 37 - 98 U/L 08/22/2025 10:54 AM CDT [facility] AST 73(H) 15 - 37 U/L 08/22/2025 10:54 AM CDT [facility] ALT 190(H) 13 - 56 U/L 08/22/2025 10:54 AM CDT [facility] TOTAL PROTEIN S/P/B 6.9 6.4 - 8.2 G/DL 08/22/2025 10:54 AM CDT [facility] ALBUMIN S/P/B 3.3(L) 3.4 - 5.0 G/DL 08/22/2025 10:54 AM CDT [facility] 08/22/2025 10:0 0 AM CDT us Obtrey Armas MD LABORATORY Final Result [facility] [address] [place] [address], [phone] * (ABNORMAL) CBC W/DIFF AUTOMATED (08/22/2025 10:00 AM CDT) WBC 8.69 4.00 - 10.80 x10'3/uL 08/22/2025 10:15 AM CDT [facility] RBC 4.14 4.10 - 5.40 x10'6/uL 08/22/2025 10:15 AM CDT [facility] HGB 11.8(L) 12.0 - 16.0 G/DL 08/22/2025 10:15 AM CDT [facility] HCT 34.6(L) 36.0 - 47.0 % 08/22/2025 10:15 AM CDT [facility] MCV 83.6 78.0 - 100.0 FL 08/22/2025 10:15 AM CDT [facility] MCH 28.5 27.0 - 31.0 PG 08/22/2025 10:15 AM CDT [facility] MCHC 34.1 33.0 - 36.0 G/DL 08/22/2025 10:15 AM CDT [facility] RDW 13.6 11.5 - 14.5 % 08/22/2025 10:15 AM CDT [facility] PLT 326 150 - 350 x10'3/uL 08/22/2025 10:15 AM CDT [facility] MPV 10.6(H) 7.4 - 10.4 FL 08/22/2025 10:15 AM CDT [facility] DIFFERENTIAL TYPE AUTOMATED DIFFERENTIAL 08/22/2025 10:15 AM CDT [facility] SEG NEUTROPHILS 56.6 % 10:15 AM CDT [facility] LYMPHOCYTES 32.6 % 08/22/2025 10:15 AM T [facility] MONOCYTES 6.4 % 08/22/2025 10:15 AM CDT [facility] EOSINOPHILS 3.7 % 08/22/2025 10:15 AM CDT [facility] BASOPHILS 0.5 % 08/22/2025 10:15 AM CDT [facility] IMMATURE GRANS % 0.2 % 08/22/20 10:15 AM CDT [facility] ABS. NEUTROPHILS 4.92 1.60 - 8.30 x10'3/uL 08/22/2025 10:15 AM CDT [facility] ABS. LYMPHOCYTES 2.83 0.80 - 4.70 x10'3/uL 08/22/2025 10:15 AM CDT [facility] ABS. MONOCYTES 0.56 0.00 - 1.50 x10'3/uL 08/22/2025 10:15 AM CDT [facility] ABS. EOSINOPHILS 0.32 0.00 - 0.40 x10'3/uL 08/22/2025 10:15 AM CDT [facility] ABS. BASOPHILS 0.04 0.00 - 0.20 x10'3/uL 08/22/2025 10:15 AM CDT [facility] ABS. IMMATURE GRANULOCYTES 0.02 0.00 - 0.03 x10'3/uL 08/22/2025 10:15 AM CDT [facility] ABS. NUCLEATED RBC'S 0.00 0.00 - 0.01 x10'3/uL 08/22/2025 10:15 AM CDT [facility] NRBC % 0.0 % 08/22/2025 10:15 AM CDT [facility] 08/22/2025 10:0 0 AM CDT us Obiora I Chanda THOMASON LABORATORY Final Result Performing Organization Address City/[facility]/ZIP Co de Phone Number [facility] [address] [id number], [place] [phone] * TROPONIN, QUANT (08/22/2025 10:00 AM CDT) TROPONIN I HIGH SENSITIVITY 22 0 - 53 ng/L 08/22/2025 10:54 AM CDT [facility] 08/22/2025 10:0 0 AM CDT us Obiora I Chanda THOMASON LABORAT[facility] Final Result Performing Organization Address [facility]/ZIP Co de Phone Number [facility] [address] [place] [address], [place] [phone] * THYROID STIM HORMONE, TSH (08/22/2025 10:00 AM CDT) TSH 1.390 0.358 - 3.740 uIU/ML 08/22/2025 10:54 AM CDT [facility] Comment: ASSAY PERFORMED BY CHEMILUMINESCENCE METHODOLOGY USING [employer] [facility]. PATIENT RESULTS DETERMINED BY ASSAYS USING DIFFERENT MANUFACTURERS FOR METHODS MAY NOT BE COMPARABLE. 08/22/2025 10:0 0 AM CDT us Obiorjeanie Armas MD LABORATORY Final Result Performing Organization Address [facility] Co de Phone Number [facility] [address] [place] [address], [place] [phone] * PHOSPHORUS, INORGANIC PHOSPHATE (08/22/2025 10:00 AM CDT) PHOSPHORUS 3.1 2.5 - 4.9 MG/DL 08/22/2025 10:54 AM CDT [facility] 08/22/2025 10:0 0 AM CDT Obiorjeanie Armas MD LABORATORY Final Result Performing Organization Address [facility] de Phone Number [facility] [address] [place] [address], [phone] * MAGNESIUM (08/22/2025 10:00 AM CDT) MAGNESIUM 2.2 1.6 - 2.6 MG/DL 08/22/2025 10:54 AM CDT [facility] 08/22/2025 10:0 0 AM CDT Obtrey Armas MD LABORATORY Final Result Performing Organization Address [facility] de Phone Number [facility] [address] [place] [address], [place] [phone] * CALCIUM, IONIZED (08/22/2025 10:00 AM CDT) CALCIUM IONIZED 1.16 1.15 - 1.33 MMOL/L 08/22/2025 10:57 AM CDT [facility] 08/22/2025 10:0 0 AM CDT Obtrey Armas MD LABORATORY Final Result Performing Organization Address [facility] Co de Phone Number [facility] [address] [place] [address], [phone] * POCT glucose (08/22/2025 9:59 AM CDT) [facility] GLUCOSE POC 96 70 - 109 08/23/2025 9:26 PM CDT [facility] 08/22/2025 9:59 AM CDT Deyvi Armas MD POCT ORDERABLES - DEVICE Farzana l Result Performing Organization Address [facility] Co de Phone Number [facility] [address] [place] [address], [phone] * HEPATITIS C ANTIBODY (12/20/2020 9:11 AM HOME PERFORMANCE CONSULTANT) [facility] HEPATITIS C AB NON-REACTI VE NON-REACT BEATRICE 12/20/2020 6:38 PM HOME PERFORMANCE CONSULTANT [facility] Comment: ANTIBODIES TO HCV NOT DETECTED. DOES NOT EXCLUDE THE POSSIBILITY OF EXPOSURE TO HCV. 12/20/2020 9:11 AM HOME PERFORMANCE CONSULTANT Virgil Paredes MD LABORATORY Final Result Performing Organization Address [facility] de Phone Number [facility] [address] [place] [address], [phone] from Last 3 Months or Most Recently Relevant to Health Maintenance Additional Health Concerns Infection Onset Date Last Indicated MRSA 08/22/2025 08/22/[address] [place] [address] MEDICAID Advance Directives Documents on File Type Date Recorded Patient Utility Locator Expl anation Legal Documents 08/02/2022 4:46 PM COMPLETE D BILLING REQUEST FOR ATTJose L [email or web address] * Full Code (Latest Code Status on File) Date Activated Date Inactivated Comments 08/22/2025 9:38 AM 08/22/2025 4:19 PM * Full Code Date Activated Date Inactivated Comments 12/20/2020 12:21 PM 12/24/2020 5:01 PM * Full Code Date Activated Date Inactivated Comments 12/20/2020 8:59 AM 12/20/2020 11:41 AM Care Teams Social Service Agency Director Relationship Specialty Start Date End Date None, Provider, PCP - General 12/20/20
== END 2025-11-10 18:42 | disposition left against medical advice (07) ==
DX: R11.0 Nausea (principal)
CPT/HCPCS: 99199